=== PATIENT | female | born 1950 | race Caucasian/White ===

== ENCOUNTER 2017-07-07 18:41 | Emergency (ER) | payer OTHER ==
[~2017-07-07] VITALS: Ht 152.4 cm; Wt 95.3 kg
[2017-07-07 19:03] VITALS: BP 147/81
[2017-07-07] MEDS: MORPHINE SULFATE 4 MG/ML SYR IM ONE (21:55)
[2017-07-07 22:09] VITALS: BP 120/101
== END 2017-07-07 22:08 | disposition home or self-care (01) ==
LOC: MED 18:41
DX: M25.511 Pain in right shoulder (principal); R21 Rash and other nonspecific skin eruption; I10 Essential (primary) hypertension; Z90.49 Acquired absence of other specified parts of digestive tract
CPT/HCPCS: 96372; 99283; J2270

== ENCOUNTER 2018-03-29 00:43 | Emergency (ER) | payer OTHER, MEDICAID ==
[~2018-03-29] VITALS: Ht 152.4 cm; Wt 90.7 kg
[2018-03-29 00:49] VITALS: BP 174/76
--- NOTE | 2018-03-29 00:53 | NUR ---
TO LOBBY A/W BED, VIA W/C, LIZ NOTED
--- NOTE | 2018-03-29 01:00 | NUR ---
ASSUMED CARE OF PT AT THIS TIME. C/O COUGH AND SOB X 2 MONTHS. NO RESPIRATORY DISTRESS NOTED...PT SPEAKS IN FULL SENTENCES. PT IS AAOX4 AND RECEIVED TO BED 5 VIA W/C; PATIENT STATES PAIN OF 10/10; VSS; PATIENT POSITIONED FOR COMFORT; HOB ELEVATED; BEDRAILS UP X2; BED DOWN. ER MD MADE AWARE OF PT STATUS. WILL CONTINUE TO MONITOR.
--- NOTE | 2018-03-29 01:00 | NUR ---
PT TAKEN TO BED 5
--- NOTE | 2018-03-29 01:24 | NUR ---
X-Ray at bedside.
[2018-03-29] MEDS ORDERED: KETOROLAC 60 MG/2 ML VIAL IM ONE (02:55)
--- NOTE | 2018-03-29 03:36 | NUR ---
Dr. Saldaña evaluating patient at bedside.
[2018-03-29] MEDS ORDERED: MORPHINE SULFATE 4 MG/ML SYR IVP ONE (03:45)
[2018-03-29] MEDS ORDERED: FUROSEMIDE 20 MG/2 ML VIAL IVP ONE (03:45)
[2018-03-29] MEDS ORDERED: ALBUTEROL 0.083% 2.5 MG/3 ML NEBU INH ONE (03:50)
[2018-03-29] MEDS ORDERED: ALBUTEROL SULFATE/IPRATROPIU 3 ML SOL IH ONE (03:50)
[2018-03-29 04:55] VITALS: BP 164/71
== END 2018-03-29 04:55 | disposition home or self-care (01) ==
LOC: MED 00:43
DX: J81.1 Chronic pulmonary edema (principal); M54.5 Low back pain; I10 Essential (primary) hypertension; E07.9 Disorder of thyroid, unspecified; Z90.49 Acquired absence of other specified parts of digestive tract; Z90.710 Acquired absence of both cervix and uterus; Z96.649 Presence of unspecified artificial hip joint; Z98.890 Other specified postprocedural states
CPT/HCPCS: 71045; 93005; 94640; 96372; 96374; 96375; 99283; J1885; J1940; J2270; J7613; J7620

== ENCOUNTER 2018-06-20 14:14 | Inpatient (IN) | payer OTHER, MEDICAID ==
[~2018-06-20] VITALS: Ht 152.4 cm; Wt 90.7 kg
[2018-06-20 14:17] VITALS: BP 153/46
--- NOTE | 2018-06-20 14:17 | NUR ---
DAMIEN BY MARÍA ELENA TO BED 10
--- NOTE | 2018-06-20 14:17 | NUR ---
DR. LARSON AT BEDSIDE EVALUATING MD. Addendum: 06/20/[address] LARSON AT BEDSIDE EVALUATING PATIENT.
[2018-06-20] MEDS ORDERED: KETOROLAC 30 MG/ML VIAL IVP ONE ×2 (14:20→16:10)
--- NOTE | 2018-06-20 14:20 | NUR ---
59/F BIBA FROM HOME C/O LFA PAIN S/P FALL OF THE BED WITH INJURIED LEFT SHOULDER, DENIES HEAD INJURY, PAIN LEVEL 10. FENTANYL 100MG IM AND 100MG IV GIVEN PER PARAMEDICS, HX OF HTN, ARTHRITIS, HYPERLIPIDIMIA. DENIES N/V;PATIENT POSITIONED FOR COMFORT; HOB ELEVATED; BEDRAILS UP X2; BED DOWN. ER MADE AWARE OF PT STATUS. Addendum: 06/20/18 at 1632 [facility] Kassidy COPELAND KNEE PAIN
--- NOTE | 2018-06-20 14:30 | NUR ---
X RAY AT BEDSIDE
--- NOTE | 2018-06-20 14:53 | NUR ---
GRAND SON AT BEDSIDE.
--- NOTE | 2018-06-20 15:06 | NUR ---
Klarissa bonner in [facility] - 06/20/18 at 1508 by MED1 denies pain at this time.
--- NOTE | 2018-06-20 15:08 | NUR ---
C/O 11/26 DINORAH,Kassidy KNEE AT THIS TIME.
[2018-06-20] MEDS ORDERED: MORPHINE SULFATE 4 MG/ML SYR IVP ONE ×2 (15:10→17:25)
[2018-06-20] MEDS ORDERED: ONDANSETRON 4 MG/2 ML VIAL IVP ONE (15:10)
--- NOTE | 2018-06-20 15:20 | NUR ---
LAB AT BEDSIDE
[2018-06-20 15:35] LABS: BASOPHILS % (AUTO) 0.4 % (0.0-2.0); EOSINOPHILS # (AUTO) 0.3 K/uL (0-0.4); EOSINOPHILS % (AUTO) 3.8 % (0.0-4.0); HEMATOCRIT 29.2 % (36-48); HEMOGLOBIN 9.5 g/dL (12.0-16.0); LYMPHOCYTES % (AUTO) 13.4 % (20.5-51.1); MEAN CORPUSCULAR HEMOGLOBIN 27 pg (27-31); MEAN CORPUSCULAR HGB CONC 33 g/dL (33-37); MEAN CORPUSCULAR VOLUME 84.3 fL (80-94); MONOCYTES # (AUTO) 0.8 K/uL (0.8-1.0); MONOCYTES % (AUTO) 10.1 % (1.7-9.3); NEUTROPHILS # (AUTO) 5.6 K/uL (1.8-7.7); NEUTROPHILS % (AUTO) 72.3 % (42.2-75.2); PLATELET COUNT (AUTO) 184 K/uL (140-450); RED BLOOD CELL COUNT(AUTO) 3.47 MIL/uL (4.20-5.40); RED CELL DISTRIBUTION WIDTH 13.8 % (11.6-13.7); WHITE BLOOD COUNT (AUTO) 7.7 K/uL (4.8-10.8)
[2018-06-20 15:44] LABS: ANION GAP 14.9 (8-16); CARBON DIOXIDE 21.3 mmol/L (21-32); CREATININE 1.5 mg/dL (0.6-1.3); POTASSIUM 4.2 mmol/L (3.5-5.1)
[2018-06-20 15:50] LABS: ALBUMIN 3.1 g/dL (3.4-5.0); PROTHROMBIN TIME 10.1 secs (10.8-13.4); TOTAL BILIRUBIN 0.3 mg/dL (0.0-1.0)
--- NOTE | 2018-06-20 16:00 | NUR ---
C/O 07/27 DINORAH,L KNEE AT THIS TIME.
--- NOTE | 2018-06-20 16:18 | NUR ---
PT CAN'T PROVIDE URINE AT THIS TIME.
--- NOTE | 2018-06-20 17:02 | NUR ---
provided water & juice.
--- NOTE | 2018-06-20 19:08 | NUR ---
Pt report given to ROSEMARY VASQUEZ. Transfer of care at this time.
[2018-06-20] MEDS ORDERED: ONDANSETRON 4 MG/2 ML VIAL IM/IVP PRN (19:10)
--- NOTE | 2018-06-20 19:40 | NUR ---
PT [id number] AT UNIT VIA GURNEY, TRANSFERRED PT TO BED, TOLERATED WELL, RECEIVED BEDSIDE REPORT FROM ER NURSE, PT STABLE IV TO R WRIST 22G PATENT, INTACT, PT ON ROOM AIR, NO SOB NOTED, V/S TAKEN, BP AND HR LOW, WILL NOTIFY , INITIAL ASSESSMENT DONE, ALL SAFETY PRECAUTION MET, ORIENT PT TO ROOM, BED, CALL LIGHT, PT STATED UNDERSTANDING, MRSA SWAB TAKEN, CALL LIGHT WITHIN REACH, WILL CONTINUE TO MONITOR.
--- NOTE | 2018-06-20 19:43 | NUR ---
Admited to Med-Surg. Patient went to room 124-B via gurney by RN and EMT. Patient acting appropriatly. Belongings list completed. Report to well.
[2018-06-20 20:00] VITALS: BP 116/27
[2018-06-20] MEDS: HYDROcodone/APAP 7.5/325 MG 1 TAB PO PRN (20:13)
--- NOTE | 2018-06-20 20:13 | NUR ---
PT C/O PAIN, PAIN MEDICATION PER DR ORDER GIVEN, PT TOLERATED WELL, NO DISTRESS NOTED, CALL LIGHT WITHIN REACH, WILL CONTINUE TO MONITOR.
[2018-06-20] MEDS ORDERED: HYDROmorphone 1 MG/ML AMP IVP PRN ×2 (20:15→22:00)
[2018-06-20] MEDS ORDERED: MORPHINE SULFATE 4 MG/ML SYR IVP PRN (20:15)
[2018-06-20 20:32] LABS: CHOL/HDL RATIO 2.7 (1-4.5); FREE T4 (FREE THYROXINE) 0.92 ng/dL (0.76-1.46); MAGNESIUM 1.9 mg/dL (1.8-2.4); PHOSPHORUS 4.2 mg/dL (2.5-4.9); THYROID STIMULATING HORMONE 5.51 uIU/mL (0.34-3.74)
[2018-06-20] MEDS ORDERED: NACL 0.9% 500 ML IV ONE ×3 (21:40→22:10)
--- NOTE | 2018-06-20 21:48 | NUR ---
TALKED TO DR. PARK REGARDING PT BP LOW AND HR LOW, STATED UNDERSTANDING, ORDERED TO TX PT TO TELE. TELE MONITORING APPLIED, PT TOLERATED WELL, NO DISTRESS NOTED, WILL CONTINUE TO MONITOR.
--- NOTE | 2018-06-20 21:50 | NUR ---
TRANSFERRED PT TO ROOM 128A, PT TOLERATED WELL, ALL BELONGING WITH PT, ORIENT PT TO NEW ROOM, PT STATED UNDERSTANDING, CALL LIGHT WITHIN REACH, WILL CONTINUE TO MONITOR.
[2018-06-20] MEDS: MORPHINE SULFATE 2 MG/ML SYR IVP PRN (22:37)
--- NOTE | 2018-06-20 22:37 | NUR ---
PT BP 107/26 HR 52, NS BOLUS ADMINISTERED PER DR ORDER, PT TOLERATED WELL, PER DR. PARK OK TO GIVE PT MORPHINE FOR PAIN AT THIS TIME, ADMINISTERED MEDICATION, PT TOLERATED WELL, NO DISTRESS NOTED, WILL CONTINUE TO MONITOR.
[2018-06-20] MEDS ORDERED: MECLIZINE 25 MG TAB PO PRN (23:05)
[2018-06-21] VITALS: BP 114/33
--- NOTE | 2018-06-21 00:15 | NUR ---
CHECKED ON PT, V/S TAKEN, WNL, CALL LIGHT WITHIN REACH, WILL CONTINUE TO MONITOR.
[2018-06-21] MEDS: NACL 0.9% 1,000 ML IV SCH ×2 (00:22→11:45)
[2018-06-21] MEDS ORDERED: MEDICATION REC. PHARMACY CONS. 1 EA MISC MC PRN (03:05)
[2018-06-21 04:10] VITALS: BP 108/48
[2018-06-21] MEDS: MORPHINE SULFATE 2 MG/ML SYR IVP PRN ×3 (04:23→18:52)
--- NOTE | 2018-06-21 04:23 | NUR ---
CHECKED ON PT, V/S TAKEN, WITHIN PT BASELINE, PT STATED HAVING PAIN, MEDICATION ADMINISTERED, PT TOLERATED WELL, NO DISTRESS NOTED, CALL LIGHT WITHIN REACH, WILL CONTINUE TO MONITOR.
[2018-06-21 05:37] LABS: APPEARANCE,URINE SL CLOUDY (CLEAR); BILIRUBIN,URINE 2+ (NEGATIVE); BLOOD, URINE NEGATIVE (NEGATIVE); COLOR,URINE YELLOW (YELLOW); LEUKOCYTE ESTERASE ,URINE 1+ (NEGATIVE); NITRITE, URINE NEGATIVE (NEGATIVE); PH,URINE 5.5 (5.0-9.0); UGLUCOSE NEGATIVE (NEGATIVE)
[2018-06-21 05:45] LABS: BARBITURATE, URINE NEG. ng/ml (NEG <=200); BENZODIAZEPINE, URINE NEG. ng/mL (NEG <=200); CANNABINOID, URINE NEG. ng/mL (NEG <=50); COCAINE, URINE NEG. ng/mL (NEG <=300); OPIATE, URINE POS. ng/mL (NEG <=2000); PHENCYCLIDINE SCREEN,URINE NEG. ng/mL (NEG <=25)
[2018-06-21 05:50] LABS: RBC,URINE 0-5 /HPF (0-5); WBC,URINE 0-5 /HPF (0-5)
--- NOTE | 2018-06-21 06:30 | NUR ---
PT WENT TO CT IN STABLE CONDITION, NO DISTRESS NOTED/
--- NOTE | 2018-06-21 06:40 | NUR ---
PT BACK FROM CT IN STABLE CONDITION.
[2018-06-21] MEDS: HYDROmorphone 1 MG/ML AMP IVP PRN ×4 (07:14→23:23)
--- NOTE | 2018-06-21 07:21 | NUR ---
ENDORSED PT TO DAY SHIFT NURSE DANIELLE RN, PT STABLE, NO DISTRESS NOTED, CALL LIGHT WITHIN REACH.
--- NOTE | 2018-06-21 07:22 | NUR ---
RECEIVED BEDSIDE REPORT FROM CHRISTINA WOMACK. PATIENT ON TELE MONITOR AND STANDARD PRECAUTIONS IN PLACE. PATIENT AAOX4 AND ON ROOM AIR, NO DISTRESS NOTED. BILATERAL KNEE SWELLING, L HUMERUS FRACTURE. BRUISE ON L KNEE. FALL RISK PROTOCOL IN PLACE. IV ON R WRIST 22 G INFUSING NS AT 60, IV ASYMPTOMATIC PATENT AND INTACT. BED IN LOW POSITION, CALL LIGHT WITHIN REACH, SIDE RAILS X2 UP
[2018-06-21 07:52] LABS: ANION GAP 12.6 (8-16); CARBON DIOXIDE 22.5 mmol/L (21-32); POTASSIUM 4.1 mmol/L (3.5-5.1)
[2018-06-21 07:53] LABS: BASOPHILS % (AUTO) 0.5 % (0.0-2.0); EOSINOPHILS # (AUTO) 0.4 K/uL (0-0.4); HEMATOCRIT 27.4 % (36-48); LYMPHOCYTES # (AUTO) 1.5 K/uL (2.5-16.5); LYMPHOCYTES % (AUTO) 22.5 % (20.5-51.1); MEAN CORPUSCULAR HEMOGLOBIN 28 pg (27-31); MEAN CORPUSCULAR HGB CONC 33 g/dL (33-37); MEAN CORPUSCULAR VOLUME 85.1 fL (80-94); MONOCYTES # (AUTO) 0.6 K/uL (0.8-1.0); MONOCYTES % (AUTO) 8.3 % (1.7-9.3); NEUTROPHILS # (AUTO) 4.3 K/uL (1.8-7.7); NEUTROPHILS % (AUTO) 62.7 % (42.2-75.2); PLATELET COUNT (AUTO) 180 K/uL (140-450); RED BLOOD CELL COUNT(AUTO) 3.22 MIL/uL (4.20-5.40); RED CELL DISTRIBUTION WIDTH 13.8 % (11.6-13.7); WHITE BLOOD COUNT (AUTO) 6.8 K/uL (4.8-10.8)
[2018-06-21 08:00] VITALS: BP 123/40
--- NOTE | 2018-06-21 09:24 | NUR ---
ADMINISTERED SCHEDULED MEDS. PATIENT TOLERATED WELL
--- NOTE | 2018-06-21 09:45 | NUR ---
DR. WINN CALLED [facility], BUT IS CLOSED ON SUNDAYS. SHE ALSO CALLED PATIENT'S HOME AND LEFT MESSAGE REGARDING HOME MEDICATIONS. PATIENT DOES NOT REMEMBER LIST OF HOME MEDS. STATED GRANDSON WILL VISIT HER TODAY AT HOSPITAL AND SHE WILL LET HIM KNOW TO BRING LIST OF HOME MEDS
[2018-06-21] MEDS: HYDROcodone/APAP 7.5/325 MG 1 TAB PO PRN (11:46)
[2018-06-21 12:00] VITALS: BP 102/37
--- NOTE | 2018-06-21 12:20 | NUR ---
PATIENT SLEEPING, ON ROOM AIR, NO DISTRESS NOTED
--- NOTE | 2018-06-21 13:33 | NUR ---
ADMINISTERED MORPHINE PRN FOR 8/10 PAIN. WILL CONTINUE TO MONITOR
[2018-06-21] MEDS ORDERED: DULO60EC75 PO (15:19)
[2018-06-21] MEDS ORDERED: AMLO5TAB5 PO (15:19)
[2018-06-21] MEDS ORDERED: VITA1TAB44 PO (15:19)
[2018-06-21] MEDS ORDERED: HYDR-3320 PO (15:19)
[2018-06-21] MEDS ORDERED: TOFA11TA PO (15:19)
[2018-06-21] MEDS ORDERED: ALPR0.5T2 PO (15:19)
[2018-06-21] MEDS ORDERED: OMEP40EC14 PO (15:19)
[2018-06-21] MEDS ORDERED: SIMV20TA6 PO (15:19)
[2018-06-21] MEDS ORDERED: SUL500 PO (15:19)
[2018-06-21] MEDS ORDERED: MECL-322 PO (15:19)
[2018-06-21] MEDS ORDERED: FLUO118.1 TP (15:19)
[2018-06-21] MEDS ORDERED: ATEN25TA7 PO (15:19)
[2018-06-21] MEDS ORDERED: LEVO0.0211 PO (15:19)
[2018-06-21] MEDS ORDERED: HYDR200T5 PO (15:19)
[2018-06-21] MEDS ORDERED: TRAM50TA1 PO (15:22)
[2018-06-21] MEDS ORDERED: QUEPKT PO (15:22)
--- NOTE | 2018-06-21 15:49 | NUR ---
PATIENT COMPLAINING OF 10/10 PAIN, WILL ADMINISTER DILAUDID, NOTIFIED DR. WINN
[2018-06-21] MEDS ORDERED: HYDROmorphone 1 MG/ML AMP IVP PRN (15:50)
[2018-06-21 16:00] VITALS: BP 151/77
--- NOTE | 2018-06-21 18:41 | NUR ---
PATIENT ON ROOM AIR, NO DISTRESS NOTED, WILL CONTINUE TO MONITOR
--- NOTE | 2018-06-21 19:15 | NUR ---
BEDSIDE REPORT GIVEN TO CHRISTINA CAMPBELL. PATIENT ENDORSED IN STABLE CONDITION
--- NOTE | 2018-06-21 19:30 | NUR ---
RECEIVED BEDSIDE REPORT DAY SHIFT RN, PATIENT IN BED, AAOX4 AND ON ROOM AIR, NO DISTRESS NOTED. BILATERAL KNEE SWELLING, L HUMERUS FRACTURE. BRUISE ON L KNEE. FALL RISK PROTOCOL IN PLACE. IV ON R WRIST 22 G INFUSING NS AT 70 ML/HR. BED IN LOW POSITION, CALL LIGHT WITHIN REACH.
[2018-06-21 20:00] VITALS: BP 150/83
[2018-06-21] MEDS: sulfaSALAzine 500 MG TAB PO SCH (21:07)
--- NOTE | 2018-06-21 22:53 | NUR ---
C/O PAIN GAVE DILAUDID
[2018-06-21] MEDS ORDERED: GABAPENTIN 300 MG CAP PO ONE (23:05)
--- NOTE | 2018-06-21 23:09 | NUR ---
PATIENT STATED DILAUDID NOT WORKING. DR PARK SAID OKAY TO GIVE GABAPENTIN AND 1 MG DILAUDID AGAIN. PATIENT WILL HAVE US OF LOWER EXTREMITIES
[2018-06-22] VITALS: BP 115/70
--- NOTE | 2018-06-22 00:30 | NUR ---
SLEEPING IN BED
[2018-06-22] MEDS: NACL 0.9% 1,000 ML IV SCH ×2 (00:31→12:24)
--- NOTE | 2018-06-22 02:00 | NUR ---
EXPLAINED TO PATIENT NEED FOR OCCULT BLOOD. PATIENT VERBALIZED UNDERSTANDING.
[2018-06-22] MEDS: MORPHINE SULFATE 2 MG/ML SYR IVP PRN (04:12)
--- NOTE | 2018-06-22 04:12 | NUR ---
PATIENT REFUSED BP CHECK STATED IT HURT TOO MUCH TO CHECK. ASKED FOR PAIN MEDICATIONS. NOTIFIED DR PARK, AND OKAY TO GIVE PAIN MED. GAVE MORPHINE.
[2018-06-22] MEDS: LEVOTHYROXINE 0.025 MG TAB PO SCH (05:26)
[2018-06-22 07:17] LABS: BASOPHILS % (AUTO) 0.3 % (0.0-2.0); EOSINOPHILS # (AUTO) 0.2 K/uL (0-0.4); EOSINOPHILS % (AUTO) 2.4 % (0.0-4.0); HEMATOCRIT 25.9 % (36-48); HEMOGLOBIN 8.5 g/dL (12.0-16.0); LYMPHOCYTES # (AUTO) 0.7 K/uL (2.5-16.5); LYMPHOCYTES % (AUTO) 7.6 % (20.5-51.1); MEAN CORPUSCULAR HEMOGLOBIN 28 pg (27-31); MEAN CORPUSCULAR HGB CONC 33 g/dL (33-37); MONOCYTES # (AUTO) 0.8 K/uL (0.8-1.0); MONOCYTES % (AUTO) 9.9 % (1.7-9.3); NEUTROPHILS # (AUTO) 6.8 K/uL (1.8-7.7); NEUTROPHILS % (AUTO) 79.8 % (42.2-75.2); PLATELET COUNT (AUTO) 162 K/uL (140-450); RED BLOOD CELL COUNT(AUTO) 3.05 MIL/uL (4.20-5.40); RED CELL DISTRIBUTION WIDTH 13.7 % (11.6-13.7); WHITE BLOOD COUNT (AUTO) 8.6 K/uL (4.8-10.8)
--- NOTE | 2018-06-22 07:19 | NUR ---
RECEIVED BEDSIDE REPORT FROM SAND TESTER R., PATIENT IN BED, AAOX4 AND ON ROOM AIR, NO DISTRESS NOTED. BILATERAL KNEE SWELLING, L HUMERUS FRACTURE. BRUISE ON L KNEE. FALL RISK PROTOCOL IN PLACE. IV ON R WRIST 22 G INFUSING NS AT 70 ML/HR. BED IN LOW POSITION, CALL LIGHT WITHIN REACH. WILL ROUND FREQUENTLY ON PT.
--- NOTE | 2018-06-22 07:28 | NUR ---
ENDORSED PATIENT TO DAY SHIFT NURSE, PATIENT STABLE.
[2018-06-22 07:47] LABS: ANION GAP 14.6 (8-16); CARBON DIOXIDE 19.9 mmol/L (21-32); CREATININE 1.4 mg/dL (0.6-1.3); MAGNESIUM 1.9 mg/dL (1.8-2.4); PHOSPHORUS 3.9 mg/dL (2.5-4.9); POTASSIUM 4.5 mmol/L (3.5-5.1)
[2018-06-22 08:00] VITALS: BP 138/44
[2018-06-22 08:15] LABS: T4 (THYROXINE) 5.1 ug/dL (4.5-12.0)
--- NOTE | 2018-06-22 08:42 | NUR ---
PATIENT HAS BEEN SCREENED AND CATEGORIZED MODERATE NUTRITION RISK. PATIENT WILL BE SEEN WITHIN 3-5 DAYS OF ADMISSION. 06/23/18QUINTON NUNEZ RD
[2018-06-22] MEDS: amLODIPine 5 MG TAB PO SCH (09:00)
[2018-06-22] MEDS: ATENOLOL 25 MG TAB PO SCH (09:00)
--- NOTE | 2018-06-22 09:30 | NUR ---
P.T. NOTES UNABLE TO SEE PATIENT FOR P.Marsha CAMILO DUE TO HER REFUSAL TO PARTICIPATE IN SPITE OF SEVERAL ENCOURAGEMENTS WERE GIVEN. HER NURSE AARON WAS MADE AWARE OF HER REFUSAL. PLAN: WE'LL FOLLOW UP AGAIN TOMORROW.
[2018-06-22] MEDS: sulfaSALAzine 500 MG TAB PO SCH ×2 (09:56→20:18)
[2018-06-22] MEDS: FERROUS SULFATE 325 MG TABEC PO SCH (09:56)
[2018-06-22] MEDS: DULoxetine 30 MG CAPDR PO SCH (09:56)
[2018-06-22] MEDS: HYDROXYCHLOROQUINE 200 MG TAB PO SCH (09:56)
[2018-06-22] MEDS: HYDROcodone/APAP 7.5/325 MG 1 TAB PO PRN ×3 (09:57→21:48)
[2018-06-22] MEDS: VIT-B COMP/VIT-C/FOLIC ACID 1 TAB PO SCH (09:57)
[2018-06-22] MEDS: ASCORBIC ACID 500 MG TAB PO SCH (09:57)
[2018-06-22] MEDS: CHOLESTYRAMINE 4 GM/9 GM PKT PO SCH (09:58)
[2018-06-22] MEDS: ALPRAZolam 0.5 MG TAB PO SCH (09:58)
[2018-06-22] MEDS: PANTOPRAZOLE 40 MG INJ VIAL IV SCH (09:58)
--- NOTE | 2018-06-22 09:59 | NUR ---
ADMINISTERED MORNING MEDS TO PT. PT TOLERATED THEM WELL. PER MD, NORVASC AND TENORMIN WERE HELD DUE TO DECREASED DBP. NORCO WAS GIVEN WITH MD KNOWLEDGE FOR COMPLAINT OF ARM AND LEG PAIN. WILL CONTINUE TO ROUND FREQUENTLY ON PT. BED IN LOW POSITION, CALL LIGHT WITHIN REACH.
--- NOTE | 2018-06-22 11:13 | NUR ---
PT SLEEPING IN BED. NO SIGNS OF DISTRESS OR PAIN NOTED. WILL CONTINUE TO MONITOR PT CLOSELY.
[2018-06-22 12:00] VITALS: BP 136/42
--- NOTE | 2018-06-22 13:11 | NUR ---
NOTICED PT MEDICATIONS AT BEDSIDE. PT SLEEPING BUT i WILL ASK HER IF SOMEONE CAN COME GET HER MEDS OTHERWISE THEY WILL BE TAKEN TO PHARMACY FOR SAFE KEEPING.
--- NOTE | 2018-06-22 15:04 | NUR ---
MI REQUESTING PAIN MEDICATION AT THIS TIME. WILL MEDICATE PT. ALL OTHER NEEDS CURRENTLY MET. NO SIGNS OF DISTRESS FROM PT. BED IN LOW POSITION, CALL LIGHT WITHIN REACH.
[2018-06-22 16:00] VITALS: BP 140/42
--- NOTE | 2018-06-22 17:18 | NUR ---
PT SLEEPING IN BED. NO SIGNS OF PAIN OR DISTRESS NOTED. BED IN LOW POSITION, CALL LIGHT WITHIN REACH. WILL CONTINUE TO ROUND FREQUENTLY.
--- NOTE | 2018-06-22 19:29 | NUR ---
ENDORSED PT TO NIGHTSHIFT RN. PT IN STABLE CONDITION AT THIS TIME.
--- NOTE | 2018-06-22 19:30 | NUR ---
RECEIVED REPORT FROM DAY SHIFT NURSE AARON-CHRISTINA AT BEDSIDE. PT RESTING, ON-AND-OFF SLEEPING IN BED. AOX4, ON ROOM AIR WITH RIGHT WRIST #22G. LEFT ARM IN BANDAGE S/P FALL AT HOME ON 06/20 WITH LEFT HUMERAL FRACTURE. DISCUSSED PLAN OF CARE AND PT VERBALIZED UNDERSTANDING. NO S/S OF RESPIRATORY DISTRESS OR DISCOMFORT NOTED AT THIS TIME. BED IN LOWEST POSITION, BED BREAKS ON, BOTH SIDE RAILS UP AND FALL PRECAUTIONS IN PLACE. HEAD OF BED ELEVATED TO 30 DEGREES. BEDSIDE TABLE AND CALL LIGHT ARE WITHIN REACH. WILL CONTINUE TO MONITOR.
[2018-06-22 20:00] VITALS: BP 135/49
--- NOTE | 2018-06-22 20:00 | NUR ---
VITAL SIGNS TAKEN AND TOLERATED WELL. NO S/S OF RESPIRATORY DISTRESS OR DISCOMFORT NOTED AT THIS TIME. WILL CONTINUE TO MONITOR.
--- NOTE | 2018-06-22 20:18 | NUR ---
SCHEDULED MEDICATION AZULFIDINE AND HEPARIN SUBQ GIVEN AND TOLERATED WELL. NO S/S OF RESPIRATORY DISTRESS OR DISCOMFORT NOTED AT THIS TIME. WILL CONTINUE TO MONITOR.
--- NOTE | 2018-06-22 21:24 | NUR ---
PERINEAL CARE CURRENTLY BEING PROVIDED BY ASUNCION VASQUEZ AND ASUNCION LIEBERMAN. URINE SOILD LINENS BEING CHANGED. PT TOLERATING WELL. NO S/S OF RESPIRATORY DISTRESS OR DISCOMFORT NOTED AT THIS TIME. WILL CONTINUE TO MONITOR.
--- NOTE | 2018-06-22 21:48 | NUR ---
PT C/O LEG PAIN REQUESTING TO BANDAGE HER LEGS SHE DOES AT HOME. SPOKE WITH DR. LUCERO AND AFTER SPEAKING TO PT SHE ORDERED ULTRASOUND OF HER LEGS AND TO GIVE NORCO FOR PAIN. NORCO WAS GIVEN AND TOLERATED WELL. NO S/S OF RESPIRATORY DISTRESS OR DISCOMFORT NOTED AT THIS TIME. WILL CONTINUE TO MONITOR.
[2018-06-23] VITALS: BP 143/46
--- NOTE | 2018-06-23 | NUR ---
VITAL SIGNS TAKEN AND TOLERATED WELL. PT C/O PAIN 09/26- WILL MEDICATE. WILL CONTINUE TO MONITOR.
[2018-06-23] MEDS: MORPHINE SULFATE 2 MG/ML SYR IVP PRN (00:19)
--- NOTE | 2018-06-23 00:19 | NUR ---
MEDICATED WITH MORPHINE FOR PAIN. PT TOLERATED WELL. NO S/S OF RESPIRATORY DISTRESS OR DISCOMFORT NOTED AT THIS TIME. WILL CONTINUE TO MONITOR.
--- NOTE | 2018-06-23 02:00 | NUR ---
PT SLEEPING IN BED. NO S/S OF RESPIRATORY DISTRESS OR DISCOMFORT NOTED AT THIS TIME. WILL CONTINUE TO MONITOR.
[2018-06-23 04:00] VITALS: BP 144/37
--- NOTE | 2018-06-23 04:00 | NUR ---
VITAL SIGNS TAKEN AND TOLERATED WELL. NO S/S OF RESPIRATORY DISTRESS OR DISCOMFORT NOTED AT THIS TIME. WILL CONTINUE TO MONITOR.
--- NOTE | 2018-06-23 06:00 | NUR ---
PT RESTING IN BED. NO S/S OF RESPIRATORY DISTRESS OR DISCOMFORT NOTED AT THIS TIME. WILL CONTINUE TO MONITOR.
[2018-06-23 06:14] LABS: FOLIC ACID > 20.00 ng/mL (>3.0)
[2018-06-23] MEDS: LEVOTHYROXINE 0.025 MG TAB PO SCH (06:17)
--- NOTE | 2018-06-23 06:17 | NUR ---
SCHEDULED MEDICATION SYNTHROID GIVEN AND TOLERATED WELL. NO S/S OF RESPIRATORY DISTRESS OR DISCOMFORT NOTED AT THIS TIME. WILL CONTINUE TO MONITOR.
[2018-06-23 06:53] LABS: BASOPHILS % (AUTO) 0.4 % (0.0-2.0); EOSINOPHILS # (AUTO) 0.5 K/uL (0-0.4); EOSINOPHILS % (AUTO) 7.5 % (0.0-4.0); HEMATOCRIT 22.9 % (36-48); HEMOGLOBIN 7.5 g/dL (12.0-16.0); LYMPHOCYTES # (AUTO) 0.8 K/uL (2.5-16.5); LYMPHOCYTES % (AUTO) 12.2 % (20.5-51.1); MEAN CORPUSCULAR HEMOGLOBIN 28 pg (27-31); MEAN CORPUSCULAR HGB CONC 33 g/dL (33-37); MEAN CORPUSCULAR VOLUME 84.6 fL (80-94); MONOCYTES # (AUTO) 0.7 K/uL (0.8-1.0); MONOCYTES % (AUTO) 10.5 % (1.7-9.3); NEUTROPHILS # (AUTO) 4.6 K/uL (1.8-7.7); NEUTROPHILS % (AUTO) 69.4 % (42.2-75.2); PLATELET COUNT (AUTO) 164 K/uL (140-450); RED BLOOD CELL COUNT(AUTO) 2.71 MIL/uL (4.20-5.40); RED CELL DISTRIBUTION WIDTH 14.2 % (11.6-13.7); WHITE BLOOD COUNT (AUTO) 6.7 K/uL (4.8-10.8)
--- NOTE | 2018-06-23 07:19 | NUR ---
ENDORSED PT CARE TO DAY SHIFT NURSE STEPHANIE AT BEDSIDE FOR CONTINUITY OF CARE.
--- NOTE | 2018-06-23 07:40 | NUR ---
PATIENT WAS SLEEPING COMFORTABLY, EASILY AROUSABLE BY NAME. RESPIRATION EVEN, UNLABOR ON ROOM AIR. SKIN DRY AND WARM. IV PATENT AND INTACT. COMPLAINED OF LEG PAIN 6/10, WILL MEDICATE PER ORDER. PLAN OF CARE WAS DISCUSSED WITH PATIENT. BED AT LOW POSITION, SIDE RAILS UP. CALL LIGHT WITHIN REACH.
[2018-06-23 07:41] LABS: MAGNESIUM 1.7 mg/dL (1.8-2.4); PHOSPHORUS 2.8 mg/dL (2.5-4.9)
[2018-06-23 07:46] LABS: ANION GAP 11.1 (8-16); CARBON DIOXIDE 20.1 mmol/L (21-32); POTASSIUM 4.2 mmol/L (3.5-5.1)
[2018-06-23 07:47] LABS: CREATININE 1.2 mg/dL (0.6-1.3)
[2018-06-23 08:00] VITALS: BP 127/44
[2018-06-23] MEDS: DULoxetine 30 MG CAPDR PO SCH (08:38)
[2018-06-23] MEDS: ALPRAZolam 0.5 MG TAB PO SCH (08:38)
[2018-06-23] MEDS: HYDROXYCHLOROQUINE 200 MG TAB PO SCH (08:38)
[2018-06-23] MEDS: HYDROcodone/APAP 7.5/325 MG 1 TAB PO PRN ×3 (08:39→20:48)
[2018-06-23] MEDS: GABAPENTIN 300 MG CAP PO SCH ×2 (08:39→20:47)
[2018-06-23] MEDS: VIT-B COMP/VIT-C/FOLIC ACID 1 TAB PO SCH (08:39)
[2018-06-23] MEDS: ASCORBIC ACID 500 MG TAB PO SCH (08:39)
[2018-06-23] MEDS: amLODIPine 5 MG TAB PO SCH ×2 (08:40→08:45)
[2018-06-23] MEDS: FERROUS SULFATE 325 MG TABEC PO SCH (08:40)
[2018-06-23] MEDS: ATENOLOL 25 MG TAB PO SCH ×2 (08:40→08:45)
[2018-06-23] MEDS: PANTOPRAZOLE 40 MG INJ VIAL IV SCH (08:41)
[2018-06-23] MEDS: sulfaSALAzine 500 MG TAB PO SCH ×2 (08:41→20:48)
[2018-06-23] MEDS: CHOLESTYRAMINE 4 GM/9 GM PKT PO SCH (08:42)
[2018-06-23] MEDS: NACL 0.9% 1,000 ML IV SCH (09:40)
--- NOTE | 2018-06-23 10:00 | NUR ---
PATIENT WAS REPOSITIONED, PERINEAL CARE WAS GIVEN. PT WAS AT BEDSIDE. NO DISTRESS NOTED. CALL LIGHT WITHIN REACH
[2018-06-23] MEDS ORDERED: MAG SULF 2000 MG/WATER PREMIX 50 ML IV SCH (11:00)
[2018-06-23] MEDS: DOCUSATE SODIUM 100 MG GELCAP PO PRN (11:14)
[2018-06-23] MEDS: ACETAMINOPHEN 325 MG TAB PO SCH ×3 (11:15→19:35)
[2018-06-23] MEDS: FUROSEMIDE 20 MG TAB PO SCH ×2 (11:16→16:36)
--- NOTE | 2018-06-23 11:40 | NUR ---
BLOOD TRANSFUSION CONSENT WAS OBTAINED, SIGNED PER PATIENT. PATIENT VERBALIZED UNDERSTANDING OF THE RISKS. NEW IV 22G WAS INSERTED ON RIGHT AC. PATIENT TOLERATED WELL
--- NOTE | 2018-06-23 12:00 | NUR ---
PATIENT WAS SLEEPING COMFORTABLY. RESPIRATION EVEN, UNLABOR ON ROOM AIR. NO DISTRESS NOTED AT THIS TIME
--- NOTE | 2018-06-23 14:05 | NUR ---
BLOOD TRANSFUSION WAS STARTED, PATIENT IS STABLE AT THIS TIME
--- NOTE | 2018-06-23 15:00 | NUR ---
PATIENT WAS AWAKE, ALERT. DENIED PAIN, SOB. VS IS STABLE. NO DISTRESS NOTED
[2018-06-23 16:00] VITALS: BP 137/48
--- NOTE | 2018-06-23 17:18 | NUR ---
BLOOD TRANSFUSION WAS FINISHED. VS WAS STABLE. NO SIGN OF ADVERSE REACTION SEEN. PATIENT IS STABLE AT THIS TIME
--- NOTE | 2018-06-23 18:11 | NUR ---
PATIENT WAS AWAKE, ALERT, EATING DINNER COMFORTABLY. RESPIRATION EVEN, UNLABOR ON ROOM AIR. FAMILY AT BEDSIDE. NO DISTRESS NOTED AT THIS TIME
--- NOTE | 2018-06-23 19:23 | NUR ---
ENDORSEMENT GIVEN TO RN ENDOSCOPY NURSE. PATIENT IS STABLE AT THIS TIME.
--- NOTE | 2018-06-23 19:25 | NUR ---
RECEIVED BEDSIDE REPORT FROM AKBAR VASQUEZ. PT IS AAO X4. ON ROOM AIR RESPIRATIONS ARE EQUAL AND UNLABORED. PATIENT DX LEFT HUMERUS FX. ARM IS MARINA WRAPPED. CAP REFILL < 3SEC. PT TO BE NPO AFTER MIDNIGHT. PT SURGERY TOMORROW. PER NURSE NO ORDER FOR CONSENT SURGERY WAS NOT SPECIFIC. PT RECEIVED ONE UNIT OF BLOOD TODAY. SKIN INTACT. OCCULT BLOOD PENDING NO BM TODAY. IV ON R HAND 22G AND RAC 22G IVF PER ORDERS. PLAN OF CARE DISCUSSED. WILL CONTINUE TO MONITOR.
--- NOTE | 2018-06-23 20:48 | NUR ---
SCHEDULED MEDICATIONS GIVEN. PATIENT TOLERATED WELL. NORCO GIVEN FOR 6/10 PAIN. SAFETY MEASURES ARE IN PLACE. CALL LIGHT WITHIN REACH. WILL CONTINUE TO MONITOR.
--- NOTE | 2018-06-23 23:00 | NUR ---
PATIENT CLEANED AND REPOSITION FOR COMFORT. PT SITTING IN BED EATING SALAD. VERBALIZED UNDERSTANDING OF NPO AFTER MIDNIGHT. SAFETY MEASURES ARE IN PLACE. CALL LIGHT WITHIN REACH. WILL CONTINUE TO MONITOR.
[2018-06-24] VITALS: BP 152/52
--- NOTE | 2018-06-24 00:15 | NUR ---
PATIENT IS SLEEPING COMFORTABLY IN BED. RESPIRATIONS ARE EQUAL AND UNLABORED. SAFETY MEASURES ARE IN PLACE. CALL LIGHT WITHIN REACH.
--- NOTE | 2018-06-24 02:16 | NUR ---
PATIENT SLEEPING IN BED. NO S/S OF DISTRESS. RESPIRATION EQUAL AND UNLABORED. CALL LIGHT WITHIN REACH.
[2018-06-24] MEDS: NACL 0.9% 1,000 ML IV SCH ×3 (05:43→19:44)
--- NOTE | 2018-06-24 06:00 | NUR ---
PATIENT CLEANED AND REPOSITION FOR COMFORT. ASSISTED WITH ORAL CARE. AND CLEANS HER DENTURES. PREO OP CHECKLIST COMPLETED. PT WITHOUT ANY JEWELRY. CONSENT SIGNED AND IN CHART.
[2018-06-24] MEDS: LEVOTHYROXINE 0.025 MG TAB PO SCH (06:07)
[2018-06-24 06:57] LABS: HEMATOCRIT 27.3 % (36-48); HEMOGLOBIN 8.9 g/dL (12.0-16.0); MEAN CORPUSCULAR HEMOGLOBIN 28 pg (27-31); MEAN CORPUSCULAR HGB CONC 33 g/dL (33-37); MEAN CORPUSCULAR VOLUME 86.4 fL (80-94); PLATELET COUNT (AUTO) 188 K/uL (140-450); RED BLOOD CELL COUNT(AUTO) 3.16 MIL/uL (4.20-5.40); RED CELL DISTRIBUTION WIDTH 14.3 % (11.6-13.7); WHITE BLOOD COUNT (AUTO) 5.8 K/uL (4.8-10.8)
[2018-06-24] MEDS ORDERED: PROPOFOL 200 MG/20 ML VIAL IV ONE (07:29)
[2018-06-24] MEDS ORDERED: LIDOCAINE 2% 100 MG/5 ML SYR IVP ONE (07:29)
[2018-06-24] MEDS ORDERED: SEVOFLURANE 250 ML BTL INH ONE (07:29)
--- NOTE | 2018-06-24 07:33 | NUR ---
GAVE BEDSIDE REPORT TO CRYSTAL VASQUEZ. PATIENT ENDORSED IN STABLE CONDITION.
--- NOTE | 2018-06-24 07:35 | NUR ---
RECEIVED ENDORSEMENT FROM MANAGER STRATEGIC SOURCING NURSEROBERT ABOUT THE PT, PT IS IN OR ALREADY PER CHRISTINA JONES FOR A ORIF SURGERY, PT WAS NOT SEEN AND ASSESS, INFORMATION AND HISTORY OF PT WAS JUST RELAYED BY MANAGER STRATEGIC SOURCING NURSEROBERT. WILL ASSESS AND MONITOR PT WHEN BACK TO ROOM.
--- NOTE | 2018-06-24 07:36 | NUR ---
PER RESEARCH PROJECT MANAGER NURSE, DOROTHY JONES WAS TAKEN OUT OF THE ROOM FOR SURGERY AT AROUND 0725H.
[2018-06-24 07:42] LABS: ANION GAP 11.7 (8-16); CARBON DIOXIDE 21.6 mmol/L (21-32); CREATININE 1.2 mg/dL (0.6-1.3); POTASSIUM 4.3 mmol/L (3.5-5.1)
[2018-06-24] MEDS ORDERED: MIDAZOLAM 2 MG/2 ML VIAL ONE (07:43)
[2018-06-24] MEDS ORDERED: fentaNYL 0.05 MG/ML VIAL ONE (07:44)
[2018-06-24 07:49] LABS: EOSINOPHILS % (MANUAL) 9 % (0-4); LYMPHOCYTES % (MANUAL) 10 % (20-46); MONOCYTES % (MANUAL) 5 % (5-12)
[2018-06-24] MEDS: FERROUS SULFATE 325 MG TABEC PO SCH (08:00)
[2018-06-24 08:35] LABS: PROTHROMBIN TIME 8.8 secs (10.8-13.4)
[2018-06-24] MEDS ORDERED: HYDROmorphone 1 MG/ML AMP IVP PRN (08:35)
[2018-06-24] MEDS ORDERED: ONDANSETRON 4 MG/2 ML VIAL IVP PRN (08:35)
[2018-06-24] MEDS: BACITRACIN 50000 UNITS/1 VIAL ONE ×2 (08:40→10:30)
[2018-06-24] MEDS: ALPRAZolam 0.5 MG TAB PO SCH (09:00)
[2018-06-24] MEDS: DULoxetine 30 MG CAPDR PO SCH (09:00)
[2018-06-24] MEDS: sulfaSALAzine 500 MG TAB PO SCH ×2 (09:00→20:42)
[2018-06-24] MEDS: ATENOLOL 25 MG TAB PO SCH (09:00)
[2018-06-24] MEDS: VIT-B COMP/VIT-C/FOLIC ACID 1 TAB PO SCH (09:00)
[2018-06-24] MEDS: HYDROXYCHLOROQUINE 200 MG TAB PO SCH (09:00)
[2018-06-24] MEDS: GABAPENTIN 300 MG CAP PO SCH ×2 (09:00→20:42)
[2018-06-24] MEDS: ASCORBIC ACID 500 MG TAB PO SCH (09:00)
[2018-06-24] MEDS: CHOLESTYRAMINE 4 GM/9 GM PKT PO SCH (09:00)
[2018-06-24] MEDS: amLODIPine 5 MG TAB PO SCH (09:00)
[2018-06-24] MEDS: PANTOPRAZOLE 40 MG INJ VIAL IV SCH (09:00)
[2018-06-24] MEDS ORDERED: HYDROmorphone PFS 2 MG/ML SYR ONE (09:56)
[2018-06-24] MEDS: BUPIVACAINE-MPF 0.25% 30 ML VIAL INJ ONE ×2 (10:30→10:59)
[2018-06-24 12:00] VITALS: BP 155/56
--- NOTE | 2018-06-24 12:03 | NUR ---
PT WAS BACK TO ROOM FROM OR FROM ORIF SURGERY OF THE LEFT HUMERUS, VITAL SIGNS TAKEN AND BP IS 155/56, PULSE IS 88, TEMPERATURE IS 98.4, O2 SATURATION IS 97% AND RESPIRATION IS 18/MIN, PT IS AWAKE AND MADE COMFORTABLE ON THE BED, NO SIGN OF DISTRESS NOTED. WILL MONITOR PT.
--- NOTE | 2018-06-24 14:20 | NUR ---
PT IS AWAKE AND IV MEDICATION WAS GIVEN VIA IVPB AND PT TOLERATED IT. WILL MONITOR PT.
[2018-06-24] MEDS: HYDROmorphone 1 MG/ML AMP IVP PRN ×2 (14:53→19:44)
--- NOTE | 2018-06-24 14:53 | NUR ---
PT VERBALIZED A PAIN RATE OF 9/10, AND PAIN MEDICATION WAS GIVEN, BP WAS CHECKED AND RESULT IS 148/51, PULSE IS 84, O2 SATURATION IS 86%, PT TOLERATED THE MEDICATION. WILL RE-ASSESS PAIN AND MONITOR PT.
--- NOTE | 2018-06-24 15:03 | NUR ---
CALLED CARMINE [phone] Bills Khakis AND NOTIFIED HER PATIENT HAS A D/C ORDER TO [facility]APY . PER CARMINE TO TRY [facility] [place] , I FAXED ALL THE INFO TO [facility] [phone] AND SPOKE WITH DANITZA LEWIS AND AFTER SHE REVIEW SHE WILL CALL BACK.
[2018-06-24 16:00] VITALS: BP 156/53
--- NOTE | 2018-06-24 16:05 | NUR ---
CALLED CARMINE [facility] LEFT A MESSAGE THAT WE NEEDED A LIST OF SNF THAT CONTRACTED WITH [facility] AND PROVIDED OUR FAX NUMBER [phone].
--- NOTE | 2018-06-24 16:12 | NUR ---
CALLED [facility] [phone] SPOKE WITH ERIC ,PROVIDE PT INFO AND IF THEY ARE CONTRACTED PT'S INSURANCE [facility]. PER ELLIOT WILL CHECK AND WILL CALL BACK.
[2018-06-24 17:53] LABS: BASOPHILS % (AUTO) 0.2 % (0.0-2.0); EOSINOPHILS # (AUTO) 0.3 K/uL (0-0.4); EOSINOPHILS % (AUTO) 3.5 % (0.0-4.0); HEMATOCRIT 27.9 % (36-48); HEMOGLOBIN 8.9 g/dL (12.0-16.0); LYMPHOCYTES # (AUTO) 0.5 K/uL (2.5-16.5); MEAN CORPUSCULAR HEMOGLOBIN 28 pg (27-31); MEAN CORPUSCULAR HGB CONC 32 g/dL (33-37); MEAN CORPUSCULAR VOLUME 86.9 fL (80-94); MONOCYTES # (AUTO) 0.8 K/uL (0.8-1.0); MONOCYTES % (AUTO) 10.8 % (1.7-9.3); NEUTROPHILS # (AUTO) 5.9 K/uL (1.8-7.7); NEUTROPHILS % (AUTO) 78.5 % (42.2-75.2); PLATELET COUNT (AUTO) 205 K/uL (140-450); RED BLOOD CELL COUNT(AUTO) 3.21 MIL/uL (4.20-5.40); RED CELL DISTRIBUTION WIDTH 14.9 % (11.6-13.7); WHITE BLOOD COUNT (AUTO) 7.5 K/uL (4.8-10.8)
--- NOTE | 2018-06-24 19:35 | NUR ---
ENDORSED PT TO COOKER LOADER NURSEDIANNE FOR CONTINUITY OF CARE. PT IS STABLE AT THIS TIME.
--- NOTE | 2018-06-24 19:36 | NUR ---
RECEIVED BEDSIDE REPORT FROM JOCELYN VASQUEZ. PT IS AAO X4. ON ROOM AIR RESPIRATIONS ARE EQUAL AND UNLABORED. PATIENT DX LEFT HUMERUS FX.S/P LEFT ORIF WITH DR RESENDIZ TODAY. ARM IN SOFT CAST. CAP REFILL < 3SEC. ARM SWOLLEN BUT WARM. OCCULT BLOOD PENDING NO BM TODAY. IV ON R HAND 22G AND RAC 22G IVF PER ORDERS. PLAN OF CARE DISCUSSED. SAFETY MEASURES ARE IN PLACE. WILL CONTINUE TO MONITOR.
--- NOTE | 2018-06-24 19:44 | NUR ---
PATIENT STATES PAIN 10/10 WILL ADMINISTER DILAUDID IVP. PATIENT TOLERATED WELL. WILL CONTINUE TO MONITOR.
--- NOTE | 2018-06-24 20:42 | NUR ---
SCHEDULED MEDICATIONS ADMINISTERED. PATIENT TOLERATED WELL. PATIENT WAS CLEANED AND REPOSITION FOR COMFORT ON R SIDE. ALL NEEDS MET AT THIS TIME. WILL CONTINUE TO MONITOR.
[2018-06-24] MEDS ORDERED: ceFAZolin 1,000 MG VIAL ONE (20:47)
[2018-06-24] MEDS: MORPHINE SULFATE 2 MG/ML SYR IVP PRN (23:45)
--- NOTE | 2018-06-24 23:45 | NUR ---
PATIENT VITAL SIGNS ARE WITHIN NORMAL LIMITS. PT STATES PAIN IS 10/10 MORPHINE GIVEN PER ORDERS. WILL CONTINUE TO MONITOR. CALL LIGHT IS WITHIN REACH.
[2018-06-24 23:49] VITALS: BP 141/49
--- NOTE | 2018-06-25 02:19 | NUR ---
PATIENT IS SLEEPING COMFORTABLY IN BED. NO S/S OF DISTRESS NOTED. WILL CONTINUE TO MONITOR.
[2018-06-25] MEDS: MORPHINE SULFATE 2 MG/ML SYR IVP PRN ×2 (03:16→06:40)
--- NOTE | 2018-06-25 04:03 | NUR ---
PATIENT SLEEPING COMFORTABLY IN BED. NO S/S OF DISTRESS. CALL LIGHT IS WITHIN REACH. WILL CONTINUE TO MONITOR.
[2018-06-25] MEDS ORDERED: ceFAZolin 1,000 MG VIAL ONE (05:39)
[2018-06-25] MEDS: DOCUSATE SODIUM 100 MG GELCAP PO PRN (05:40)
[2018-06-25] MEDS: LEVOTHYROXINE 0.025 MG TAB PO SCH (05:40)
--- NOTE | 2018-06-25 05:40 | NUR ---
SCHEDULED MEDICATIONS GIVEN. PRN COLACE GIVEN LAST BM X4 DAYS AGO. PT TOLERATED WELL. WILL CONTINUE TO MONITOR.
[2018-06-25 06:53] LABS: BASOPHILS % (AUTO) 0.2 % (0.0-2.0); EOSINOPHILS # (AUTO) 0.3 K/uL (0-0.4); EOSINOPHILS % (AUTO) 4.2 % (0.0-4.0); HEMATOCRIT 23.5 % (36-48); HEMOGLOBIN 7.8 g/dL (12.0-16.0); LYMPHOCYTES # (AUTO) 0.7 K/uL (2.5-16.5); LYMPHOCYTES % (AUTO) 9.8 % (20.5-51.1); MEAN CORPUSCULAR HEMOGLOBIN 29 pg (27-31); MEAN CORPUSCULAR HGB CONC 33 g/dL (33-37); MEAN CORPUSCULAR VOLUME 85.8 fL (80-94); MONOCYTES % (AUTO) 13.3 % (1.7-9.3); NEUTROPHILS # (AUTO) 5.3 K/uL (1.8-7.7); NEUTROPHILS % (AUTO) 72.5 % (42.2-75.2); PLATELET COUNT (AUTO) 219 K/uL (140-450); RED BLOOD CELL COUNT(AUTO) 2.74 MIL/uL (4.20-5.40); RED CELL DISTRIBUTION WIDTH 14.3 % (11.6-13.7); WHITE BLOOD COUNT (AUTO) 7.3 K/uL (4.8-10.8)
--- NOTE | 2018-06-25 07:19 | NUR ---
GAVE BEDSIDE REPORT TO ADRIEL VASQUEZ. PATIENT ENDORSED IN STABLE CONDITION.
[2018-06-25 07:55] LABS: MAGNESIUM 1.7 mg/dL (1.8-2.4); PHOSPHORUS 2.7 mg/dL (2.5-4.9)
[2018-06-25 08:00] VITALS: BP 140/45
[2018-06-25] MEDS: GABAPENTIN 300 MG CAP PO SCH ×2 (08:31→20:53)
[2018-06-25] MEDS: amLODIPine 5 MG TAB PO SCH (08:32)
[2018-06-25] MEDS: ALPRAZolam 0.5 MG TAB PO SCH (08:32)
[2018-06-25] MEDS: DULoxetine 30 MG CAPDR PO SCH (08:32)
[2018-06-25] MEDS: ASCORBIC ACID 500 MG TAB PO SCH (08:32)
[2018-06-25] MEDS: FERROUS SULFATE 325 MG TABEC PO SCH (08:32)
[2018-06-25] MEDS: HYDROcodone/APAP 7.5/325 MG 1 TAB PO PRN (08:33)
[2018-06-25] MEDS: ATENOLOL 25 MG TAB PO SCH (08:33)
[2018-06-25] MEDS: PANTOPRAZOLE 40 MG INJ VIAL IV SCH (08:33)
[2018-06-25] MEDS: HYDROXYCHLOROQUINE 200 MG TAB PO SCH (08:33)
[2018-06-25] MEDS: VIT-B COMP/VIT-C/FOLIC ACID 1 TAB PO SCH (08:33)
[2018-06-25] MEDS: CHOLESTYRAMINE 4 GM/9 GM PKT PO SCH (08:34)
[2018-06-25] MEDS: sulfaSALAzine 500 MG TAB PO SCH ×2 (08:36→20:53)
[2018-06-25 09:02] LABS: ANION GAP 13.7 (8-16); CREATININE 1.2 mg/dL (0.6-1.3); POTASSIUM 4.7 mmol/L (3.5-5.1)
--- NOTE | 2018-06-25 09:08 | NUR ---
CARMINE FROM [facility] CALLED THAT [facility] IS THE CONTRACTED FACILITY AND PATIENT IS ACCEPTED THERE . PT CAN GO TO ROOM 39B , TRANSPORT WITH [facility] AUTH # [id number]. CARMINE WILL MAKE FOLLOW UP VISIT APPOINTMENT WITH DR RESENDIZ [phone]
[2018-06-25] MEDS ORDERED: KETOROLAC 15 MG/ML VIAL IM SCH (10:00)
--- NOTE | 2018-06-25 11:45 | NUR ---
ADMINISTERED MAG RIDER. PT MAG LEVEL AT 1.7. PT TOLERATING WELL. WILL CONTINUE TO MONITOR PT.
[2018-06-25] MEDS ORDERED: FER325 PO (11:47)
[2018-06-25] MEDS ORDERED: VITC500 PO (11:47)
[2018-06-25] MEDS ORDERED: GABA-638 PO (11:47)
[2018-06-25] MEDS ORDERED: ACET-9529 PO (11:47)
[2018-06-25] MEDS ORDERED: MAG SULF 2000 MG/WATER PREMIX 50 ML IV SCH (12:00)
[2018-06-25 13:43] LABS: EOSINOPHILS # (AUTO) 0.3 K/uL (0-0.4); LYMPHOCYTES # (AUTO) 0.6 K/uL (2.5-16.5); MEAN CORPUSCULAR HGB CONC 33 g/dL (33-37); MONOCYTES # (AUTO) 0.9 K/uL (0.8-1.0); RED BLOOD CELL COUNT(AUTO) 2.43 MIL/uL (4.20-5.40)
[2018-06-25 13:53] LABS: BASOPHILS % (AUTO) 0.2 % (0.0-2.0); HEMATOCRIT 20.9 % (36-48); LYMPHOCYTES % (AUTO) 10.1 % (20.5-51.1); MEAN CORPUSCULAR HEMOGLOBIN 28 pg (27-31); MEAN CORPUSCULAR VOLUME 85.9 fL (80-94); NEUTROPHILS # (AUTO) 4.6 K/uL (1.8-7.7); NEUTROPHILS % (AUTO) 70.7 % (42.2-75.2); PLATELET COUNT (AUTO) 189 K/uL (140-450); RED CELL DISTRIBUTION WIDTH 14.2 % (11.6-13.7); WHITE BLOOD COUNT (AUTO) 6.4 K/uL (4.8-10.8)
--- NOTE | 2018-06-25 13:57 | NUR ---
CRITICAL LAB: HGB 6.8. NOTIFIED DR. ABDI. AWAITING ORDERS.
[2018-06-25 13:58] LABS: HEMOGLOBIN 6.8 g/dL (12.0-16.0)
[2018-06-25] MEDS ORDERED: DOCU-299 PO (14:00)
[2018-06-25] MEDS ORDERED: ALBUTEROL SULFATE/IPRATROPIU 3 ML SOL IH PRN (14:05)
--- NOTE | 2018-06-25 14:09 | NUR ---
CALLED CARMINE AT [facility] [phone] THAT WE HOLD THE PT TODAY FOR LOW HEMOGLOBIN 6.8 AND BLOOD TRANSFUSION AND WILL CHECK H/H TOMORROW. CALLED [facility] SPOKE WITH DANITZA LEWIS THAT HOLD THE D/C TODAY AND WILL F/U TOMORROW.
--- NOTE | 2018-06-25 14:35 | NUR ---
06/25/18 RD INITIAL ASSESSMENT COMPLETED PLEASE REFER TO NUTRITION ASSESSMENT UNDER CARE ACTIVITY FOR ESTIMATED NUTRITIONAL NEEDS. 1. CONTINUE REGULAR DIET TOLERATED 2. FNS WILL ADD HEALTH SHAKE BID 3. RD TO FOLLOW-UP 3-5 DAYS, MODERATE RISK QUINTON NUNEZ RD
[2018-06-25] MEDS ORDERED: XAR10 PO (14:44)
[2018-06-25] MEDS ORDERED: BISACODYL 10 MG SUPP RC SCH (15:00)
--- NOTE | 2018-06-25 15:50 | NUR ---
STARTED AN IV ON R FOOT 22G. PT TOLERATED WELL.
[2018-06-25 16:00] VITALS: BP 124/36
--- NOTE | 2018-06-25 16:35 | NUR ---
ADMINISTERED THE SUPPOSITORY LATE. PT WAS SLEEPING ALL AFTERNOON.
[2018-06-25] MEDS: FUROSEMIDE 20 MG TAB PO SCH ×2 (17:00→20:54)
[2018-06-25] MEDS: ACETAMINOPHEN 325 MG TAB PO PRN (17:07)
--- NOTE | 2018-06-25 17:30 | NUR ---
PT HAD A LARGE BM. COLLECTED SAMPLE OF STOOL FOR OCCULT BLOOD. SENT TO LAB.
--- NOTE | 2018-06-25 17:40 | NUR ---
PRE MEDICATED PT WITH TYLENOL AND BENADRYL. THERE WAS AN ORDER FOR LASIX BUT DIDN'T GIVE. TO BE GIVEN POST TRANSFUSION. STARTED BLOOD TRANSFUSION. GRANDSON AT BEDSIDE. PT TOLERATING WELL. V/S GOOD. PT HAD A SLIGHT FEVER BEFORE BUT NOW BETTER AFTER TYLENOL. WILL CONTINUE TO MONITOR PT.
--- NOTE | 2018-06-25 19:30 | NUR ---
ENDORSED PT TO THE VP OF DIGITAL MARKETING NURSE. PT IS IN STABLE CONDITION.
--- NOTE | 2018-06-25 19:31 | NUR ---
RECEIVED BEDSIDE REPORT FROM AM SHIFT RN. A/OX4. ABLE TO MAKE NEEDS KNOWN. DISCUSSED PLAN OF CARE WITH PT. VERBALIZE UNDERSTANDING. IV 22 G IN R FOOT. CURRENTLY RECEIVING BLOOD TRANSFUSION. IV SITE CLEAN DRY PATENT. NO SIGNS OR SYMPTOMS OF DISTRESS. SKIN NON INTACT. S/P ORIF L HUMERAL. CAST IS DRY AND INTACT. SLING IS PLACED. BLISTERS BEHIND ARM. BED IN LOW POSITION. CALL LIGHT WITHIN REACH. WILL CONTINUE TO MONITOR.
[2018-06-25] MEDS: NACL 0.9% 1,000 ML IV SCH (20:34)
--- NOTE | 2018-06-25 22:30 | NUR ---
PT RESTING IN BED WHILE GRANDDAUGHTER VISITING AT BEDSIDE. NO SIGNS OF DISTRESS NOTED. WILL CONTINUE TO MONITOR.
[2018-06-26] VITALS: BP 123/38
[2018-06-26] MEDS ORDERED: FUROSEMIDE 20 MG TAB PO SCH
--- NOTE | 2018-06-26 | NUR ---
VITALS TAKEN. 123/38 BP 70P 99.3F 95 O2 20R. TOLERATED WELL. WILL CONTINUE TO MONITOR.
[2018-06-26 00:53] LABS: BASOPHILS % (AUTO) 0.3 % (0.0-2.0); EOSINOPHILS # (AUTO) 0.5 K/uL (0-0.4); EOSINOPHILS % (AUTO) 6.5 % (0.0-4.0); HEMATOCRIT 26.6 % (36-48); HEMOGLOBIN 8.8 g/dL (12.0-16.0); LYMPHOCYTES # (AUTO) 0.8 K/uL (2.5-16.5); MEAN CORPUSCULAR HEMOGLOBIN 29 pg (27-31); MEAN CORPUSCULAR HGB CONC 33 g/dL (33-37); MEAN CORPUSCULAR VOLUME 86.8 fL (80-94); MONOCYTES % (AUTO) 12.2 % (1.7-9.3); NEUTROPHILS # (AUTO) 5.7 K/uL (1.8-7.7); PLATELET COUNT (AUTO) 200 K/uL (140-450); RED BLOOD CELL COUNT(AUTO) 3.07 MIL/uL (4.20-5.40); RED CELL DISTRIBUTION WIDTH 14.5 % (11.6-13.7); WHITE BLOOD COUNT (AUTO) 8.1 K/uL (4.8-10.8)
[2018-06-26] MEDS: HYDROcodone/APAP 7.5/325 MG 1 TAB PO PRN ×2 (01:13→06:55)
--- NOTE | 2018-06-26 02:00 | NUR ---
PT SLEEPING IN BED. NO SIGNS OF RESP DISTRESS OR DISCOMFORT NOTED. EASILY AROUSABLE. BED IN LOW POSITION. CALL LIGHT WITHIN REACH. WILL CONTINUE TO MONITOR.
--- NOTE | 2018-06-26 04:17 | NUR ---
PT REMAINS SLEEPING IN BED. NO SIGNS OF RESP DISTRESS OR DISCOMFORT NOTED. EASILY AROUSABLE. BED IN LOW POSITION. CALL LIGHT WITHIN REACH. WILL CONTINUE TO MONITOR.
[2018-06-26] MEDS: LEVOTHYROXINE 0.025 MG TAB PO SCH (05:50)
--- NOTE | 2018-06-26 05:50 | NUR ---
ADMINISTERED MED TO PATIENT. EDUCATED ON SIDE EFFECTS. VERBALIZED UNDERSTANDING. TOLERATED WELL. WILL CONTINUE TO MONITOR.
[2018-06-26 06:43] LABS: BASOPHILS % (AUTO) 0.3 % (0.0-2.0); EOSINOPHILS # (AUTO) 0.5 K/uL (0-0.4); EOSINOPHILS % (AUTO) 7.4 % (0.0-4.0); HEMATOCRIT 25.6 % (36-48); HEMOGLOBIN 8.6 g/dL (12.0-16.0); LYMPHOCYTES # (AUTO) 0.9 K/uL (2.5-16.5); LYMPHOCYTES % (AUTO) 11.7 % (20.5-51.1); MEAN CORPUSCULAR HEMOGLOBIN 29 pg (27-31); MEAN CORPUSCULAR HGB CONC 34 g/dL (33-37); MEAN CORPUSCULAR VOLUME 86.2 fL (80-94); MONOCYTES # (AUTO) 0.9 K/uL (0.8-1.0); MONOCYTES % (AUTO) 12.4 % (1.7-9.3); NEUTROPHILS % (AUTO) 68.2 % (42.2-75.2); PLATELET COUNT (AUTO) 194 K/uL (140-450); RED BLOOD CELL COUNT(AUTO) 2.97 MIL/uL (4.20-5.40); RED CELL DISTRIBUTION WIDTH 14.3 % (11.6-13.7); WHITE BLOOD COUNT (AUTO) 7.3 K/uL (4.8-10.8)
--- NOTE | 2018-06-26 06:44 | NUR ---
WILL ENDORSE PT TO DAY SHIFT RN. PT REMAINS SLEEPING IN BED. PT IN STABLE CONDITION.
--- NOTE | 2018-06-26 06:55 | NUR ---
ADMINISTERED NORCO TO PT. PAIN 6 ON ADULT SCALE. EDUCATED ON SIDE EFFECTS. VERBALIZED UNDERSTANDING. TOLERATED WELL.
[2018-06-26 07:02] LABS: ANION GAP 11.9 (8-16); CARBON DIOXIDE 22.4 mmol/L (21-32); CREATININE 1.1 mg/dL (0.6-1.3); POTASSIUM 4.3 mmol/L (3.5-5.1)
[2018-06-26 07:11] LABS: MAGNESIUM 2.2 mg/dL (1.8-2.4); PHOSPHORUS 2.5 mg/dL (2.5-4.9)
--- NOTE | 2018-06-26 07:28 | NUR ---
RECEIVED REPORT FROM RECONCILIATION COORDINATOR NURSE JEREMY FOR CONTINUITY OF CARE. PT IN STABLE CONDITION. RESPIRATIONS EVEN UNLABORED. ROOM AIR. NO IV ACCESS. SAFETY MEASURES IN PLACE. CALL LIGHT AT BEDSIDE. BED IN LOW POSITION. BED ALARM ON. WILL CONTINUE TO MONITOR.
[2018-06-26 08:00] VITALS: BP 126/53
[2018-06-26] MEDS ORDERED: diphenhydrAMINE 2% 30 GM TUBE TP SCH (09:00)
[2018-06-26] MEDS: VIT-B COMP/VIT-C/FOLIC ACID 1 TAB PO SCH (09:00)
[2018-06-26] MEDS: FERROUS SULFATE 325 MG TABEC PO SCH (09:00)
[2018-06-26] MEDS: HYDROXYCHLOROQUINE 200 MG TAB PO SCH (09:00)
[2018-06-26] MEDS: ATENOLOL 25 MG TAB PO SCH (09:00)
[2018-06-26] MEDS: amLODIPine 5 MG TAB PO SCH (09:00)
[2018-06-26] MEDS: PANTOPRAZOLE 40 MG INJ VIAL IV SCH (09:00)
[2018-06-26] MEDS: DULoxetine 30 MG CAPDR PO SCH (09:00)
[2018-06-26] MEDS: ASCORBIC ACID 500 MG TAB PO SCH (09:01)
[2018-06-26] MEDS: CHOLESTYRAMINE 4 GM/9 GM PKT PO SCH (09:01)
[2018-06-26] MEDS: ALPRAZolam 0.5 MG TAB PO SCH (09:01)
[2018-06-26] MEDS: sulfaSALAzine 500 MG TAB PO SCH (09:01)
[2018-06-26] MEDS: GABAPENTIN 300 MG CAP PO SCH (09:02)
[2018-06-26] MEDS: ACETAMINOPHEN 325 MG TAB PO PRN (09:09)
--- NOTE | 2018-06-26 09:45 | NUR ---
REPOSITIONED AND CLEANED PT AFTER URINATION. PT TOLERATED WELL. BED IN LOW POSITION. BED ALARM ON. CALL LIGHT AT BEDSIDE. WILL CONTINUE TO MONITOR.
--- NOTE | 2018-06-26 10:28 | NUR ---
CALLED [facility] SPOKE WITH EUGENIE FOR BED CONFIRMATION , PER EUGENIE PT CAN GO TO ROOM 39B UNDER THE CARE OF DR ORNELAS. ARRANGED TRANSPORT WITH [facility] BLS LEVEL ,[facility] MARKER TIME WILL BE 1 PM CHARGE NURSE ALLAN VASQUEZ AWARE.
--- NOTE | 2018-06-26 12:35 | NUR ---
GAVE REPORT TO MURALI STAFF NURSE AT [facility]. MURALI VERBALIZED UNDERSTANDING OF REPORT. ALL QUESTIONS ANSWERED AT THIS TIME.
[2018-06-26] MEDS ORDERED: PNEUMOCOCCAL VACCINE 23 MCG/0.5 ML VIAL IMVAC SCH (13:00)
--- NOTE | 2018-06-26 13:20 | NUR ---
GAVE DISCHARGE INSTRUCTIONS, PT VERBALIZED UNDERSTANDING OF INSTRUCTIONS. PNA VACCINE GIVEN AT THIS TIME. WOUND ASSESSMENT AND PICTURES TAKEN. OLD BANDAGE REMOVED FROM LEFT SHOULDER, CLEANED WITH SALINE. DRESSED WITH GAUZE SECURED WITH TAPE. MEDICATION RECEIVED FROM PHARMACY GIVEN TO PT FOR TRANSFER. ID BAND REMOVED. TRANSPORT INSTRUCTIONS GIVEN TO TRANSPORT TEAM. TRANSPORT TEAM VERBALIZED UNDERSTANDING OF INSTRUCTIONS. ALL QUESTIONS ANSWERED AT THIS TIME. PT LOADED ON [employer] IN STABLE CONDITION.
== END 2018-06-26 13:20 | DRG 492 ==
LOC: MED 14:14 → MTU 19:18 → MMU 21:56
PROVIDERS: ADMIT General Practice; ATTEND General Practice
PROC: 0PSG06Z Reposition Left Humeral Shaft with Intramedullary Internal Fixation Device, Open Approach (ICD-10-PCS; principal; 2018-06-25)
PROC: 30233N1 Transfusion of Nonautologous Red Blood Cells into Peripheral Vein, Percutaneous Approach (ICD-10-PCS; 2018-06-25)
PROC: 3E0234Z Introduction of Serum, Toxoid and Vaccine into Muscle, Percutaneous Approach (ICD-10-PCS; 2018-06-26)
DX: S42.202A Unspecified fracture of upper end of left humerus, initial encounter for closed fracture (principal); N17.0 Acute kidney failure with tubular necrosis; G93.41 Metabolic encephalopathy; N39.0 Urinary tract infection, site not specified; E87.1 Hypo-osmolality and hyponatremia; E44.1 Mild protein-calorie malnutrition; G90.8 Other disorders of autonomic nervous system; Z68.39 Body mass index [BMI] 39.0-39.9, adult; M06.9 Rheumatoid arthritis, unspecified; I10 Essential (primary) hypertension; E78.5 Hyperlipidemia, unspecified; D64.9 Anemia, unspecified; E66.9 Obesity, unspecified; E86.0 Dehydration; K21.9 Gastro-esophageal reflux disease without esophagitis; M17.0 Bilateral primary osteoarthritis of knee; I27.20 Pulmonary hypertension, unspecified; E83.42 Hypomagnesemia; E87.8 Other disorders of electrolyte and fluid balance, not elsewhere classified; E83.51 Hypocalcemia; M48.07 Spinal stenosis, lumbosacral region; W01.0XXA Fall on same level from slipping, tripping and stumbling without subsequent striking against object, initial encounter; Y93.89 Activity, other specified; Y92.89 Other specified places as the place of occurrence of the external cause; Z23 Encounter for immunization; Z90.49 Acquired absence of other specified parts of digestive tract; Z90.710 Acquired absence of both cervix and uterus; Y99.8 Other external cause status
CPT/HCPCS: 36415; 70450; 71045; 72131; 73030; 73060; 73562; 76001; 80048; 80053; 80305; 81001; 82150; 82272; 82607; 82728; 82746; 82948; 83036; 83540; 83690; 83735; 83880; 84100; 84436; 84439; 84443; 84479; 84484; 85025; 85045; 85610; 85730; 86886; 86900; 86901; 86920; 87081; 87086; 90732; 93005; 93880; 93925; 93970; 96374; 96375; 96376; 97116; 97161-GP; 97530; 99285; C1713; C9113; J0690; J0696; J1170; J1644; J1885; J2001; J2250; J2270; J2405; J2704; J3010; J3475; J3490; J7030; J7060; P9016; Q0092; Q0163

== ENCOUNTER 2018-07-13 09:02 | Inpatient (IN) | payer OTHER, MEDICAID ==
[~2018-07-13] VITALS: Ht 149.9 cm; Wt 111.6 kg
[~2018-07-13 09:02] MED LIST: ACET-9529 PO; ALPR0.5T2 PO; AMLO5TAB5 PO; ATEN25TA7 PO; DOCU-299 PO; DULO60EC75 PO; FER325 PO; FLUO118.1 TP; GABA-638 PO; HYDR-3320 PO; HYDR200T5 PO; LEVO0.0211 PO; MECL-322 PO; OMEP40EC14 PO; QUEPKT PO; SIMV20TA6 PO; SUL500 PO; TOFA11TA PO; TRAM50TA1 PO; VITA1TAB44 PO; VITC500 PO; XAR10 PO
--- NOTE | 2018-07-13 09:02 | NUR ---
Patient BIBA ACLS from [facility], transferred to bed 6. RN evaluating patient at bedside.
--- NOTE | 2018-07-13 09:12 | NUR ---
68 Y FEMALE BIBA FROM [facility] C/O SOB X 2 HOURS. PER [facility] PT 02 SAT WAS IN 80'S, AND PUT ON 15L O2 VIA NON-REMBREATHER AT [facility], CURRENTLY SATING AT 99%, WHEEZES, RONCHI, LABORED BREATHING. PT USES ACCESSORY MUSCLE. PT DENIES PAIN AT THIS TIME. SWELLING IN THE LOWER RIGHT EXTREMITY. VSS. PT AA0X4. BED IS DOWN, LOCKED, BED RAIL X 1, ERMD TO SEE PT. HX-GERD, ANEMIA, UNSTEADY GAIT, MORBID OBESITY, NEUROPATHY, HTN, URINARY INCOTINENCE, OA BL HIPS, HYPOTHYROIDISM, LIPIDEMIA RX- SEE MED REC Addendum: 07/13/18 at 0953 by [email or web address] SWELLING IN LEFT LOWER EXTREMITY
--- NOTE | 2018-07-13 09:24 | NUR ---
Dr. Hinton evaluating patient at bedside.
--- NOTE | 2018-07-13 09:30 | NUR ---
EMT AT BEDSIDE FOR EKG
--- NOTE | 2018-07-13 09:47 | NUR ---
# 14 FR Urinary catheter inserted utilizing sterile technique. Immediate return of YELLOW urine noted. Urine sample collected and sent to lab. Pt tolerated procedure WELL.
--- NOTE | 2018-07-13 09:47 | NUR ---
LAB AT BEDSIDE
[2018-07-13 10:04] LABS: BASOPHILS # (AUTO) 0.1 K/uL (0.00-0.22); BASOPHILS % (AUTO) 0.9 % (0.0-2.0); EOSINOPHILS # (AUTO) 0.4 K/uL (0-0.4); EOSINOPHILS % (AUTO) 4.8 % (0.0-4.0); HEMATOCRIT 23.6 % (36-48); HEMOGLOBIN 7.6 g/dL (12.0-16.0); LYMPHOCYTES # (AUTO) 1.1 K/uL (2.5-16.5); LYMPHOCYTES % (AUTO) 13.9 % (20.5-51.1); MEAN CORPUSCULAR HEMOGLOBIN 28 pg (27-31); MEAN CORPUSCULAR HGB CONC 32 g/dL (33-37); MEAN CORPUSCULAR VOLUME 87.7 fL (80-94); MONOCYTES # (AUTO) 0.9 K/uL (0.8-1.0); MONOCYTES % (AUTO) 10.8 % (1.7-9.3); NEUTROPHILS # (AUTO) 5.6 K/uL (1.8-7.7); NEUTROPHILS % (AUTO) 69.6 % (42.2-75.2); PLATELET COUNT (AUTO) 429 K/uL (140-450); RED CELL DISTRIBUTION WIDTH 14.8 % (11.6-13.7)
--- NOTE | 2018-07-13 10:07 | NUR ---
XRAY AT BEDSIDE
[2018-07-13 10:11] LABS: APPEARANCE,URINE CLOUDY (CLEAR); BILIRUBIN,URINE NEGATIVE (NEGATIVE); BLOOD, URINE TRACE-I (NEGATIVE); COLOR,URINE YELLOW (YELLOW); LEUKOCYTE ESTERASE ,URINE 3+ (NEGATIVE); NITRITE, URINE POSITIVE (NEGATIVE); PH,URINE 5.5 (5.0-9.0); UGLUCOSE NEGATIVE (NEGATIVE)
[2018-07-13 10:24] LABS: ALBUMIN 2.9 g/dL (3.4-5.0); ANION GAP 13.2 (8-16); CARBON DIOXIDE 20.1 mmol/L (21-32); CREATININE 1.5 mg/dL (0.6-1.3); TOTAL BILIRUBIN 0.3 mg/dL (0.0-1.0)
[2018-07-13 10:26] LABS: PROTHROMBIN TIME 10.1 secs (10.8-13.4)
[2018-07-13 10:27] LABS: POTASSIUM 6.3 mmol/L (3.5-5.1)
--- NOTE | 2018-07-13 10:27 | NUR ---
POTASSIUM 6.3
[2018-07-13] MEDS ORDERED: FUROSEMIDE 40 MG/4 ML VIAL IVP ONE (10:30)
[2018-07-13 10:32] LABS: RBC,URINE 0-5 /HPF (0-5); WBC,URINE TOO MANY TO COUNT /HPF (0-5)
--- NOTE | 2018-07-13 11:07 | NUR ---
# 16 FR Downing catheter with 10 ml utilizing sterile technique. Immediate return of 150 ml YELLOW urine noted. Bedside drainage bag placed below level of bladder. Urine sample collected and sent to lab. Pt tolerated procedure WELL .
[2018-07-13] MEDS: NACL 0.9% 1,000 ML IV SCH (11:29)
[2018-07-13] MEDS ORDERED: HYDROCODONE PO PRN (11:30)
[2018-07-13] MEDS ORDERED: LEVOFLOXACIN 500 MG/D5W PREMIX 100 ML IV ONE (11:30)
[2018-07-13] MEDS ORDERED: SODIUM POLYSTYRENE 15 GM/60 ML UDBTL PO ONE (11:30)
[2018-07-13] MEDS ORDERED: ACETAMINOPHEN PO PRN (11:30)
[2018-07-13] MEDS ORDERED: ALBUTEROL 0.083% 2.5 MG/3 ML NEBU INH SCH ×2 (11:30→13:30)
[2018-07-13] MEDS ORDERED: ONDANSETRON 4 MG/2 ML VIAL IM/IVP PRN (11:30)
[2018-07-13] MEDS ORDERED: DEXTROSE 50% 50 ML SYR IVP SCH (11:30)
[2018-07-13] MEDS ORDERED: CALCIUM GLUCONATE 10% 1000 MG/10 ML VIAL IVP SCH (11:30)
[2018-07-13] MEDS ORDERED: INSULIN REGULAR, HUMAN 100 UNIT/ML VIAL IVP SCH (11:30)
[2018-07-13] MEDS ORDERED: DOCUSATE SODIUM 100 MG GELCAP PO PRN (11:30)
[2018-07-13] MEDS ORDERED: PIPERACILLIN/TAZOBACTAM 3.375 GM in DEXTROSE 5% 50 ML IV SCH (12:00)
--- NOTE | 2018-07-13 12:07 | NUR ---
PT STARTED ON NC 2 L
--- NOTE | 2018-07-13 12:22 | NUR ---
PATIENT OXYGEN SAT AT 83%, STARTED ON 4 L NC
--- NOTE | 2018-07-13 12:44 | NUR ---
PATIENT STARTED ON 10 L SIMPLE MASK
--- NOTE | 2018-07-13 12:47 | NUR ---
PATIENT OXYGEN SAT AT 95% SIMPLE MASK 10 L
--- NOTE | 2018-07-13 12:53 | NUR ---
PT C/O GENERALIZED PAIN 11/26. DR PERALES NOTIFIED
--- NOTE | 2018-07-13 13:05 | NUR ---
Dr. Cordova evaluating patient at bedside.
--- NOTE | 2018-07-13 13:16 | NUR ---
REGULAR DIET ORDERED FOR PT
[2018-07-13] MEDS ORDERED: MORPHINE SULFATE 4 MG/ML SYR IVP ONE (13:25)
[2018-07-13 13:37] VITALS: BP 141/47
--- NOTE | 2018-07-13 13:37 | NUR ---
RECEIVED BEDSIDE REPORT FROM LUKAS FRAZIER RN. PATIENT ON TELE MONITOR AND STANDARD PRECAUTIONS IN PLACE. PATIENT ON 10L O2 VIA SIMPLE MASK, NO S/S OF DISTRESS. FALL RISK PROTOCOL IN PLACE. IV ON R AC 20G INFUSING NS AT 60, IV ASYMPTOMATIC PATENT AND INTACT. SKIN INTACT. CROUCH CATHETER INSERTED IN ER ON 07/13/18. BED IN LOW POSITION, CALL LIGHT WITHIN REACH, SIDE RAILS X2 UP
--- NOTE | 2018-07-13 13:37 | NUR ---
Patient will be admitted to care of DR RIGGS. Admited to TELE. Will go to room 127 B. Belongings list completed. Report to DANIELLE VASQUEZ.
[2018-07-13] MEDS ORDERED: PIPER/TAZO 3.375GM/D5W PREMIX 50 ML IV SCH (13:45)
[2018-07-13 13:55] LABS: MAGNESIUM 2.2 mg/dL (1.8-2.4); PHOSPHORUS 5.7 mg/dL (2.5-4.9)
[2018-07-13] MEDS ORDERED: SULF500T6 PO (14:04)
[2018-07-13] MEDS ORDERED: MEDICATION REC. PHARMACY CONS. 1 EA MISC MC PRN (14:20)
--- NOTE | 2018-07-13 14:32 | NUR ---
ADMINISTERED D50 IVP ONCE ORDERED
[2018-07-13] MEDS ORDERED: MORPHINE SULFATE 2 MG/ML SYR IVP SCH (15:15)
[2018-07-13 16:00] VITALS: BP 117/48
[2018-07-13] MEDS: PIPER/TAZO 3.375GM/D5W PREMIX 50 ML IV SCH (17:24)
[2018-07-13] MEDS: CALCIUM ACETATE 667 MG TAB PO SCH (17:24)
--- NOTE | 2018-07-13 17:30 | NUR ---
PATIENT SLEEPING, ON 12 L O2 VENTURI MASK, NO S/S OF RESPIRATORY DISTRESS
[2018-07-13 18:18] LABS: ANION GAP 12.5 (8-16); CARBON DIOXIDE 22.3 mmol/L (21-32); CREATININE 1.5 mg/dL (0.6-1.3); POTASSIUM 4.8 mmol/L (3.5-5.1)
--- NOTE | 2018-07-13 19:25 | NUR ---
Received patient on current settings: AC 600 Rate 14 Fio2 28% PEEP 5. Patient is trach'd with a size 6 Shiley XLT that is secure with trach ties and protective gauze is in place that is clean and dry. Cuff is deflated. Stoma appears clean, dry and healthy. Patient is awake and quiet. Treatment given inline with no incident or adverse effects. B/S: Diminished bilaterally pre and post inline treatment. Did not suction patient. Vent settings and alarms verified. Ambu bag at bedside. Addendum: 07/13/18 at 2210 by Mayda Ruiz RT DISREGARD WRONG PATIENT.
--- NOTE | 2018-07-13 19:25 | NUR ---
GAVE BEDSIDE REPORT TO CHRISTINA LUNA FOR CONTINUITY OF CARE. PATIENT ENDORSED IN STABLE CONDITION
--- NOTE | 2018-07-13 19:27 | NUR ---
RECEIVED PT FROM DANIELLE RN PT HUNGARIAN SPEAKER AAOX4 ON MASK 02 SAT 97 NOT RESP DISTRESS NOTED , IV ON RT AC INFUSING WELL BOTHARMS EDEMATOUS FOLEYCATH DRAINING WELL YELLOW URINE, ONTELMETRY SR INITIAL ASSESSMENT DONE
[2018-07-13 20:00] VITALS: BP 114/44
[2018-07-13] MEDS: ALBUTEROL SULFATE/IPRATROPIU 3 ML SOL IH SCH (20:02)
--- NOTE | 2018-07-13 20:02 | NUR ---
Found patient on Venturi mask of 50% fIO2 AT 10 L/M not 15 L/M. Spo2 97. Completed HHN treatment with no incident and left patient on Venturi mask at 35% Fio2 at 9l/m. Spo2 maintained at 92%.
--- NOTE | 2018-07-13 21:00 | NUR ---
PT TAKEN WELL MED DENIES ANY PAIN OR DISCOMFORT ONCLOSE MONITORING, ON TELEMETRY SR
--- NOTE | 2018-07-13 21:00 | NUR ---
PT REPOSITIONED ON TELEMETRY SR, NOT DISTRESS NOTED IV ON RT ARM INFUSING WELL
[2018-07-13] MEDS: GABAPENTIN 300 MG CAP PO SCH (21:19)
[2018-07-13] MEDS: MIRTAZAPINE 15 MG TAB PO SCH (21:20)
[2018-07-14] VITALS: BP 117/46
--- NOTE | 2018-07-14 | NUR ---
REPOSITIONE ON TELE SR NOT DISTRESS NOTED
[2018-07-14] MEDS: PIPER/TAZO 3.375GM/D5W PREMIX 50 ML IV SCH ×4 (00:04→18:26)
[2018-07-14] MEDS: HYDROcodone/APAP 7.5/325 MG 1 TAB PO PRN ×2 (02:58→12:46)
--- NOTE | 2018-07-14 02:58 | NUR ---
PAIN MEDIC GIVEN ORDER PT WILL BE MONITORING , ON TELEMETRY SR, REPOSITIONED Q2H
--- NOTE | 2018-07-14 03:50 | NUR ---
AFTER PAIN MEDIC GIVEN PT SLEEPING WELL NOT SIGNS OF PAIN NOTED, PT ON TELEMETRY SR ;, PT REPOSITIONED Q2H
[2018-07-14 04:00] VITALS: BP 91/44
[2018-07-14] MEDS: NACL 0.9% 1,000 ML IV SCH (05:40)
[2018-07-14] MEDS: LEVOTHYROXINE 0.025 MG TAB PO SCH (06:15)
[2018-07-14] MEDS: PANTOPRAZOLE 40 MG TABEC PO SCH (06:15)
[2018-07-14 06:43] LABS: BASOPHILS # (AUTO) 0.1 K/uL (0.00-0.22); BASOPHILS % (AUTO) 0.8 % (0.0-2.0); EOSINOPHILS # (AUTO) 0.3 K/uL (0-0.4); EOSINOPHILS % (AUTO) 3.6 % (0.0-4.0); HEMATOCRIT 21.4 % (36-48); LYMPHOCYTES # (AUTO) 0.6 K/uL (2.5-16.5); LYMPHOCYTES % (AUTO) 8.5 % (20.5-51.1); MEAN CORPUSCULAR HEMOGLOBIN 29 pg (27-31); MEAN CORPUSCULAR HGB CONC 33 g/dL (33-37); MEAN CORPUSCULAR VOLUME 86.9 fL (80-94); MONOCYTES # (AUTO) 1.2 K/uL (0.8-1.0); MONOCYTES % (AUTO) 16.7 % (1.7-9.3); NEUTROPHILS # (AUTO) 5.2 K/uL (1.8-7.7); NEUTROPHILS % (AUTO) 70.4 % (42.2-75.2); PLATELET COUNT (AUTO) 338 K/uL (140-450); RED BLOOD CELL COUNT(AUTO) 2.46 MIL/uL (4.20-5.40); RED CELL DISTRIBUTION WIDTH 14.6 % (11.6-13.7); WHITE BLOOD COUNT (AUTO) 7.4 K/uL (4.8-10.8)
--- NOTE | 2018-07-14 06:48 | NUR ---
PT SLEEPING NOT RESPIRATORY DISTRESS NOTED ON TELEMETRY SR , PT WILL BE ENDORSED TO DAY SHIFT NURSE FOR CONTINUITY OF CARE ,
[2018-07-14 06:53] LABS: PHOSPHORUS 5.1 mg/dL (2.5-4.9)
[2018-07-14] MEDS: ALBUTEROL SULFATE/IPRATROPIU 3 ML SOL IH SCH ×3 (06:53→19:28)
[2018-07-14 06:59] LABS: ANION GAP 16.6 (8-16); CARBON DIOXIDE 20.9 mmol/L (21-32); CREATININE 1.5 mg/dL (0.6-1.3); POTASSIUM 4.5 mmol/L (3.5-5.1)
--- NOTE | 2018-07-14 07:30 | NUR ---
RECEIVED PT ON BED AAOX4. NO SOB NOTED. NO C/O PAIN AT THIS TIME. IV TO LEFT AC PATENT AND INTACT. CHEST DIMINISHED AIR ENTRY TO THE BASES, PT ON 9 LPM VENTURI MASK, WITH O2 SATS AT 97% . ABDOMEN SOFT, BOWEL BOWEL SOUNDS PRESENT. NON-PITTING EDEMA NOTED +2 ON BUE, ARMS ELEVATED WITH PILLOW. SCD'S IN PLACE. WITH CROUCH DRAINING MODERATE AMOUNTS OF CLEAR YELLOW URINE. INSTRUCTED PT TO CALL FOR ASSISTANCE, CALL LIGHT WITHIN REACH, VERBALIZED UNDERSTANDING.
[2018-07-14 08:00] VITALS: BP 151/89
--- NOTE | 2018-07-14 08:18 | NUR ---
CHANGED PT OT 7L OXYMIZER TO EAT SPO2 94
--- NOTE | 2018-07-14 08:28 | NUR ---
PATIENT HAS BEEN SCREENED AND CATEGORIZED HIGH NUTRITION RISK. PATIENT WILL BE SEEN WITHIN 1-2 DAYS OF ADMISSION. 07/14/[address]
[2018-07-14] MEDS ORDERED: RIVAROXABAN 10 MG TAB PO SCH (09:00)
[2018-07-14] MEDS ORDERED: NON-FORMULARY ITEM (Losartan/Hydrochlorothiazide (Losartan-Hctz 100-25 mg Tab) 1 TAB) PO SCH (09:00)
[2018-07-14] MEDS ORDERED: NON-FORMULARY ITEM (Omeprazole 1 CAP) PO SCH (09:00)
[2018-07-14] MEDS: CHOLESTYRAMINE 4 GM/9 GM PKT PO SCH (09:08)
[2018-07-14] MEDS: sulfaSALAzine 500 MG TAB PO SCH (09:08)
[2018-07-14] MEDS: ASCORBIC ACID 500 MG TAB PO SCH (09:09)
[2018-07-14] MEDS: DULoxetine 30 MG CAPDR PO SCH (09:09)
[2018-07-14] MEDS: LACTOBACILLUS RHAMNOSUS GG 1 EACH CAP PO SCH (09:09)
[2018-07-14] MEDS: ATORVASTATIN 20 MG TAB PO SCH (09:09)
[2018-07-14] MEDS: FERROUS SULFATE 325 MG TABEC PO SCH (09:09)
[2018-07-14] MEDS: LOSARTAN 50 MG TAB PO SCH (09:10)
[2018-07-14] MEDS: ATENOLOL 25 MG TAB PO SCH (09:10)
[2018-07-14] MEDS: HYDROCHLOROTHIAZIDE 25 MG TAB PO SCH (09:10)
[2018-07-14] MEDS: CALCIUM ACETATE 667 MG TAB PO SCH ×2 (09:11→18:26)
[2018-07-14] MEDS: VIT-B COMP/VIT-C/FOLIC ACID 1 TAB PO SCH (09:11)
[2018-07-14] MEDS: GABAPENTIN 300 MG CAP PO SCH ×2 (09:11→20:48)
[2018-07-14] MEDS: HYDROXYCHLOROQUINE 200 MG TAB PO SCH (09:11)
[2018-07-14] MEDS: traMADol 50 MG TAB PO SCH (09:11)
[2018-07-14] MEDS: amLODIPine 5 MG TAB PO SCH (09:12)
[2018-07-14] MEDS: ALPRAZolam 0.5 MG TAB PO SCH (09:15)
--- NOTE | 2018-07-14 09:30 | NUR ---
PT WENT TO CT DEPT IN STABLE CONDITION. Addendum: 07/14/18 at 1437 by Luisa Palacios RN [PLS DISREGARD ABOVE NOTES. WRONG TIME.
--- NOTE | 2018-07-14 09:50 | NUR ---
PT WENT TO CT DEPT IN STABLE CONDITION.
--- NOTE | 2018-07-14 10:15 | NUR ---
PT BACK FROM CT DEPT IN STABLE CONDITION.
--- NOTE | 2018-07-14 10:20 | NUR ---
DECREASED OXYMIZER TO 5L SPO2 93
[2018-07-14 12:00] VITALS: BP 114/84
--- NOTE | 2018-07-14 12:00 | NUR ---
BLE ULTRASOUND ON GOING AT THE BEDSIDE.
--- NOTE | 2018-07-14 12:15 | NUR ---
RECEIVED PT FROM CRISTINA RN PT TAMAZIGHT SPEAKER AAOX4 ON BED REST ON OXIMIZER 5 LTS ON TELEMETRY SR IV ON RT AC INFUSING WELL,NOT RESP DISTRESS NOTED INITIAL ASSESSMENT DONE
--- NOTE | 2018-07-14 14:36 | NUR ---
07/14/18 RD INITIAL ASSESSMENT COMPLETED PLEASE REFER TO NUTRITION ASSESSMENT UNDER CARE ACTIVITY FOR ESTIMATED NUTRITIONAL NEEDS. 1. RECOMMEND A RENAL DIET 2. MEDITERRANEAN DIET EDUCATION WAS PROVIDED 3. RD TO FOLLOW-UP 3-5 DAYS, MODERATE RISK QUINTON NUNEZ RD
--- NOTE | 2018-07-14 15:55 | NUR ---
PT RESTING. NO SOB NOTED. NO SIGNS OF PAIN.
[2018-07-14 16:00] VITALS: BP 98/47
--- NOTE | 2018-07-14 19:06 | NUR ---
PT AWAKE, WATCHING TV. NO SOB NOTED. NO COMPLAINTS MADE. WILL ENDORSE TO NEXT SHIFT NURSE FOR CONTINUITY OF CARE.
[2018-07-14 20:00] VITALS: BP 118/40
[2018-07-14] MEDS: MIRTAZAPINE 15 MG TAB PO SCH (20:48)
[2018-07-14] MEDS: ACETAMINOPHEN 325 MG TAB PO PRN (20:49)
--- NOTE | 2018-07-14 21:10 | NUR ---
NURSE INFORMED ME PT WAS WHEEZING, WENT TO CHECK UP PT. PT SAID SHE DID NOT WANT A BREATHING AT THE MOMENT, TOLD PT ID BE BACK TO CHECK UP ON HER . PT WAS NOT IN ANY DISTRESS
--- NOTE | 2018-07-14 22:00 | NUR ---
PT REPOSITIONED Q2H, AND PT IS ASSISTED TO USE BEDPAN VOIDING WELL
[2018-07-15] VITALS: BP 106/40
--- NOTE | 2018-07-15 | NUR ---
PT IS ASSISTED TO USED BEDPAN AND A BIG BM PASTED STOOL AND STOOL FOR OB SENT TO LAB NOT RESP DISTRES AND NOT FEVER ON TELEMETRY SR
[2018-07-15] MEDS: PIPER/TAZO 3.375GM/D5W PREMIX 50 ML IV SCH ×4 (00:47→17:38)
--- NOTE | 2018-07-15 02:00 | NUR ---
PT LABORED BREATHING RESP THERAPY HAS BEEN ASSISTING THE PT ON TELEMETRY SR REPOSITIONED Q2H,RESIDEN WAS NOTIFY PT CONDITION
[2018-07-15] MEDS: NACL 0.9% 1,000 ML IV SCH (02:10)
[2018-07-15] MEDS: ALBUTEROL SULFATE/IPRATROPIU 3 ML SOL IH PRN (03:22)
[2018-07-15 04:00] VITALS: BP 92/68
--- NOTE | 2018-07-15 04:00 | NUR ---
SPONGE BATH GIVEN LINEN CHANGED 02 SAt 92% pt cooperative to FOLLOW COMMANDS
[2018-07-15 06:02] LABS: BASOPHILS % (AUTO) 0.4 % (0.0-2.0); LYMPHOCYTES # (AUTO) 0.7 K/uL (2.5-16.5); MEAN CORPUSCULAR HEMOGLOBIN 29 pg (27-31); MONOCYTES # (AUTO) 1.3 K/uL (0.8-1.0)
[2018-07-15 06:06] LABS: EOSINOPHILS # (AUTO) 0.5 K/uL (0-0.4); EOSINOPHILS % (AUTO) 5.1 % (0.0-4.0); HEMATOCRIT 21.1 % (36-48); LYMPHOCYTES % (AUTO) 6.2 % (20.5-51.1); MEAN CORPUSCULAR HGB CONC 33 g/dL (33-37); MEAN CORPUSCULAR VOLUME 87.1 fL (80-94); MONOCYTES % (AUTO) 12.3 % (1.7-9.3); NEUTROPHILS # (AUTO) 8.2 K/uL (1.8-7.7); PLATELET COUNT (AUTO) 357 K/uL (140-450); RED BLOOD CELL COUNT(AUTO) 2.42 MIL/uL (4.20-5.40); RED CELL DISTRIBUTION WIDTH 14.7 % (11.6-13.7); WHITE BLOOD COUNT (AUTO) 10.8 K/uL (4.8-10.8)
[2018-07-15] MEDS: LEVOTHYROXINE 0.025 MG TAB PO SCH (06:08)
[2018-07-15] MEDS: PANTOPRAZOLE 40 MG TABEC PO SCH (06:08)
[2018-07-15 06:10] LABS: HEMOGLOBIN 6.9 g/dL (12.0-16.0)
--- NOTE | 2018-07-15 06:15 | NUR ---
CRITICAL LABS REPORT HEMOGLOBIN 6.9 HCT 21[address] BASHIR
[2018-07-15 06:19] LABS: CREATININE 1.7 mg/dL (0.6-1.3)
--- NOTE | 2018-07-15 06:20 | NUR ---
DR ABDI CAME TO SEE THE PT AND ORDERS TO FOLLOW
[2018-07-15 06:25] LABS: PHOSPHORUS 4.6 mg/dL (2.5-4.9)
--- NOTE | 2018-07-15 06:31 | NUR ---
PT WILL BE ENDORSED TO DAY SHIFT NURSE FOR CONTINUITY OD CARE
[2018-07-15] MEDS: ALBUTEROL SULFATE/IPRATROPIU 3 ML SOL IH SCH ×3 (06:47→19:00)
--- NOTE | 2018-07-15 06:47 | NUR ---
PATIENT PRESENTING WITH LABORED BREATHING RR AT 36 BPM ASSESSMENT COMPLETED HHN THERAPY AND RESPIRATORY DRUG X 2 SATURATION 85% ON SUPPLEMENTAL OXYGEN AT 5 LPM VIA OXYMIZER POST CHANGED OXYGEN DEVICE TO NO REBEREATHER AT 15 LPM INDUSTRIAL MAINTENANCE MILLWRIGHT TO CONTACT RESIDENT AND NO CHARGE NURSE Addendum: 07/15/18 at 0714 by Jeff Rodriguez RT DIRECTOR OF CATEGORY MANAGEMENT'S AWARE: CRISTINA/RIGO DOWNING/TRISTIAN
--- NOTE | 2018-07-15 07:23 | NUR ---
RECEIVED REPORT FROM LABORER GOLD LEAF RN. PT IS AAOX4. NO C/O PAIN AT THIS TIME. IV TO LEFT AC PATENT AND INTACT. PT ON NON-REBREATHER WITH O2 FLUCTUATING FROM 70'S TO 90'S. MD AND RT AWARE OF SITUATION. ABDOMEN SOFT WITH BOWEL SOUNDS PRESENT. NON-PITTING EDEMA NOTED +2 ON BUE, ARMS ELEVATED WITH PILLOW. SCD'S IN PLACE. INSTRUCTED PT TO CALL FOR ASSISTANCE, CALL LIGHT WITHIN REACH, VERBALIZED UNDERSTANDING.
[2018-07-15 08:00] VITALS: BP 110/58
[2018-07-15] MEDS: ATORVASTATIN 20 MG TAB PO SCH (08:38)
[2018-07-15] MEDS: CALCIUM ACETATE 667 MG TAB PO SCH (08:38)
[2018-07-15] MEDS: FERROUS SULFATE 325 MG TABEC PO SCH (08:39)
[2018-07-15] MEDS: ASCORBIC ACID 500 MG TAB PO SCH (08:39)
[2018-07-15] MEDS: ALPRAZolam 0.5 MG TAB PO SCH (08:39)
[2018-07-15] MEDS: CHOLESTYRAMINE 4 GM/9 GM PKT PO SCH (08:40)
[2018-07-15] MEDS: DULoxetine 30 MG CAPDR PO SCH (09:00)
[2018-07-15] MEDS: HYDROCHLOROTHIAZIDE 25 MG TAB PO SCH (09:00)
[2018-07-15] MEDS: ATENOLOL 25 MG TAB PO SCH (09:00)
[2018-07-15] MEDS: amLODIPine 5 MG TAB PO SCH (09:00)
[2018-07-15] MEDS: LOSARTAN 50 MG TAB PO SCH (09:01)
[2018-07-15] MEDS: LACTOBACILLUS RHAMNOSUS GG 1 EACH CAP PO SCH (09:01)
[2018-07-15] MEDS: HYDROXYCHLOROQUINE 200 MG TAB PO SCH (09:01)
[2018-07-15] MEDS: VIT-B COMP/VIT-C/FOLIC ACID 1 TAB PO SCH (09:01)
[2018-07-15] MEDS: GABAPENTIN 300 MG CAP PO SCH ×2 (09:01→21:08)
[2018-07-15] MEDS: traMADol 50 MG TAB PO SCH (09:02)
[2018-07-15] MEDS: sulfaSALAzine 500 MG TAB PO SCH (09:08)
--- NOTE | 2018-07-15 09:25 | NUR ---
ADMINISTERED PT MORNING MEDS. PT TOLERATED THEM WELL. PT O2 SAT FLUCTUATING BETWEEN 80-90'S. MD AWARE. WILL CONTINUE TO MONITOR PT CLOSELY. BED IN LOW POSITION, PT POSITIONED IN HIGH FOWLERS FOR MAXIMUM PERFUSION.
[2018-07-15] MEDS: ACETAMINOPHEN 325 MG TAB PO PRN (09:47)
[2018-07-15] MEDS ORDERED: MORPHINE SULFATE 2 MG/ML SYR IVP SCH (11:15)
--- NOTE | 2018-07-15 11:15 | NUR ---
ADMINISTERED SCHEDULED MEDS. ADMINISTERED MORPHINE FOR PAIN. REPOSITIONED PATIENT. NO SIGNS OF DISTRESS NOTED. WILL CONTINUE TO MONITOR.
[2018-07-15 12:00] VITALS: BP 130/43
--- NOTE | 2018-07-15 13:15 | NUR ---
ADMINISTERED SCHEDULED MEDICATIONS. PATIENT IS RESTING IN BED, DENIES ANY PAIN. RT AT BEDSIDE. WILL CONTINUE TO MONITOR.
[2018-07-15] MEDS ORDERED: methylPREDNISolone SS 125 MG/2 ML VIAL IVP SCH (13:25)
[2018-07-15] MEDS: methylPREDNISolone SS 125 MG/2 ML VIAL IVP SCH ×2 (13:32→21:09)
--- NOTE | 2018-07-15 14:01 | NUR ---
LATE ENTRY FOR 07/14/18 1551: ALL CLINICALS FAXED TO JEREL MCCORMACK OF [facility] AT [phone].
--- NOTE | 2018-07-15 15:30 | NUR ---
ADMINISTERED SCHEDULED MEDICATIONS. GAVE PATIENT DISCHARGE INSTRUCTIONS, REVIEWED ALL MEDICATIONS, WENT OVER FOLLOW UP INFORMATION. ANSWERED ALL QUESTIONS AND CONCERNS. PATIENT VERBALIZED UNDERSTANDING, STATED HER DAUGHTER WILL PICK HER UP. NO DISTRESS AT THIS TIME. DENIES ANY PAIN. IV WAS DISCONTINUED, CANNULA IS INTACT. MINIMAL BLEEDING AT SITE. Addendum: 07/15/18 at 1800 by Angela Mendez RN WRONG PATIENT.
--- NOTE | 2018-07-15 15:40 | NUR ---
PATIENT IS SLEEPING IN BED, EASILY AROUSABLE. NO OTHER NEEDS AT THIS TIME.
[2018-07-15 16:00] VITALS: BP 131/56
--- NOTE | 2018-07-15 16:16 | NUR ---
Dental Appliance Mechanic Note: Per Jun from [facility] , patient is on a 7 day bed hold and is one of their skilled patients (short term patients, not bed bug exterminator).
--- NOTE | 2018-07-15 16:52 | NUR ---
CARMINE FROM [facility] UPDATED OF PATIENT'S CONDITION. WILL FAX PROGRESS REPORT FOR TODAY AT [phone]
--- NOTE | 2018-07-15 17:18 | NUR ---
RECEIVED CALL FROM PORSCHE FROM LAB. PATIENTS URINE CX IS POSITIVE FOR E.COLI, ESBL, MDRO. CONTACT PRECAUTIONS IN PLACE, DR. PIPER.
--- NOTE | 2018-07-15 18:06 | NUR ---
ADMINISTERED SCHEDULED MEDICATIONS. PATIENT IS ASLEEP, EASILY AROUSABLE. NO OTHER NEEDS AT THIS TIME. WILL CONTINUE TO MONITOR.
[2018-07-15 18:27] LABS: FERRITIN 795 ng/mL (15 - 150); FOLIC ACID > 20.00 ng/mL (>3.0); TRANSFERRIN 201 mg/dL (200 - 370)
--- NOTE | 2018-07-15 19:36 | NUR ---
ENDORSED TO RETORT UNLOADER NURSE. PATIENT IS STABLE AT THIS TIME.
[2018-07-15 20:00] VITALS: BP 151/46
[2018-07-15] MEDS: MIRTAZAPINE 15 MG TAB PO SCH (21:08)
--- NOTE | 2018-07-15 21:22 | NUR ---
PLACED PATIENT ON HIGH FLOW NASAL CANNULA ( 50LPM FIO2 56.6) PATIENT IS SPO2 98 HR 67BPM. PATIENT IS STABLE AT THIS TIME AND ROSARIO OXYGEN. RT REC VERBAL ORDER FROM DAY SHIFT SATINDER THAT WANTED PATIENT ON HIGH FLOW NASAL CANNULA.
--- NOTE | 2018-07-15 21:30 | NUR ---
PT TURNED TO SIDES. NO RESPIRATORY DISTRESS NOTED.
[2018-07-16] VITALS (8 sets, daily range): BP systolic 100–139; BP diastolic 39–63
--- NOTE | 2018-07-16 00:30 | NUR ---
PT SLEEPING WELL. O2 SAT 100 %. NO RESPIRATORY DISTRESS NOTED.
--- NOTE | 2018-07-16 02:00 | NUR ---
MADE ROUNDS. PT IS ASLEEP. NO DISCOMFORT NOTED.
[2018-07-16] MEDS: NACL 0.9% 1,000 ML IV SCH ×2 (02:10→17:07)
--- NOTE | 2018-07-16 03:00 | NUR ---
PT IS ASLEEP. NO DISTRESS NOTED. O2 SAT 100%.
[2018-07-16] MEDS: methylPREDNISolone SS 125 MG/2 ML VIAL IVP SCH ×3 (05:28→20:37)
[2018-07-16] MEDS: PIPER/TAZO 3.375GM/D5W PREMIX 50 ML IV SCH ×2 (05:33)
[2018-07-16] MEDS: PANTOPRAZOLE 40 MG TABEC PO SCH (05:58)
[2018-07-16] MEDS: LEVOTHYROXINE 0.025 MG TAB PO SCH (05:58)
--- NOTE | 2018-07-16 06:00 | NUR ---
ABG'S DRAWN BY RT. WILL FOLLOW UP RESULT.
[2018-07-16 06:22] LABS: MAGNESIUM 2.2 mg/dL (1.8-2.4); PHOSPHORUS 4.4 mg/dL (2.5-4.9)
--- NOTE | 2018-07-16 06:50 | NUR ---
TRANSFERRED TO ROOM 123B , STILL CONTACT ISOLATION. ON HIGH FLOW NC O2 SAT 100%. NO DISTRESS NOTED.
[2018-07-16 07:00] LABS: ANION GAP 13.7 (8-16); CARBON DIOXIDE 23.1 mmol/L (21-32); CREATININE 1.9 mg/dL (0.6-1.3); POTASSIUM 3.8 mmol/L (3.5-5.1)
[2018-07-16 07:05] LABS: BASOPHILS % (AUTO) 0.1 % (0.0-2.0); MEAN CORPUSCULAR HGB CONC 33 g/dL (33-37); RED CELL DISTRIBUTION WIDTH 14.6 % (11.6-13.7)
[2018-07-16 07:18] LABS: EOSINOPHILS % (AUTO) 0.1 % (0.0-4.0); LYMPHOCYTES # (AUTO) 0.4 K/uL (2.5-16.5); LYMPHOCYTES % (AUTO) 4.1 % (20.5-51.1); MEAN CORPUSCULAR HEMOGLOBIN 29 pg (27-31); MEAN CORPUSCULAR VOLUME 87.4 fL (80-94); MONOCYTES # (AUTO) 0.4 K/uL (0.8-1.0); MONOCYTES % (AUTO) 4.5 % (1.7-9.3); NEUTROPHILS % (AUTO) 91.2 % (42.2-75.2); PLATELET COUNT (AUTO) 352 K/uL (140-450); RED BLOOD CELL COUNT(AUTO) 2.16 MIL/uL (4.20-5.40); WHITE BLOOD COUNT (AUTO) 8.8 K/uL (4.8-10.8)
--- NOTE | 2018-07-16 07:20 | NUR ---
RECEIVED BEDSIDE REPORT FROM CHRISTINA VERDE AND CHRISTINA CRUZ. PT STABLE, SLEEPING, BUT EASILY AROUSABLE. NO SIGNS OF DISTRESS NOTED. DENIES PAIN OR SOB. ON HIGH FLOW NC AT 60.1 L/MIN. NO REDNESS, SWELLING, OR INFLAMMATION NOTED ON IV SITE. CALL SOSA WITHIN REACH. BED IN LOWEST POSITION, BED ALARM ON. SAFETY MEASURES IN PLACE. PLAN OF CARE REVIEWED.
--- NOTE | 2018-07-16 07:20 | NUR ---
ENDORSED PT IN STABLE CONDITION TO AM NURSE.
[2018-07-16] MEDS: ALBUTEROL SULFATE/IPRATROPIU 3 ML SOL IH SCH ×3 (07:27→19:01)
[2018-07-16 07:43] LABS: HEMATOCRIT 18.9 % (36-48); HEMOGLOBIN 6.2 g/dL (12.0-16.0)
[2018-07-16] MEDS: ATORVASTATIN 20 MG TAB PO SCH ×2 (08:46→09:00)
[2018-07-16] MEDS: FERROUS SULFATE 325 MG TABEC PO SCH (08:46)
[2018-07-16] MEDS: CHOLESTYRAMINE 4 GM/9 GM PKT PO SCH (08:47)
[2018-07-16] MEDS: ASCORBIC ACID 500 MG TAB PO SCH ×2 (08:47→09:00)
[2018-07-16] MEDS: HYDROXYCHLOROQUINE 200 MG TAB PO SCH ×2 (08:47→09:00)
[2018-07-16] MEDS: GABAPENTIN 300 MG CAP PO SCH ×3 (08:47→20:36)
[2018-07-16] MEDS: LACTOBACILLUS RHAMNOSUS GG 1 EACH CAP PO SCH (08:47)
[2018-07-16] MEDS: amLODIPine 5 MG TAB PO SCH (08:48)
[2018-07-16] MEDS: DULoxetine 30 MG CAPDR PO SCH ×2 (08:48→09:00)
[2018-07-16] MEDS: traMADol 50 MG TAB PO SCH ×2 (08:49→09:00)
[2018-07-16] MEDS: VIT-B COMP/VIT-C/FOLIC ACID 1 TAB PO SCH ×2 (08:51→09:00)
[2018-07-16] MEDS: sulfaSALAzine 500 MG TAB PO SCH ×2 (08:52→09:00)
[2018-07-16] MEDS: ALPRAZolam 0.5 MG TAB PO SCH ×2 (08:52→09:00)
[2018-07-16] MEDS: MEROPENEM 1,000 MG in NACL 0.9% 100 ML IV SCH ×2 (08:53→20:46)
[2018-07-16] MEDS: LOSARTAN 50 MG TAB PO SCH (08:53)
[2018-07-16] MEDS: ATENOLOL 25 MG TAB PO SCH (08:54)
[2018-07-16] MEDS: HYDROCHLOROTHIAZIDE 25 MG TAB PO SCH (08:54)
--- NOTE | 2018-07-16 09:15 | NUR ---
ADMINISTERED SCHEDULED MERREM, FERROUS SULFATE, LACTOBACILLUS, CHOLESTYRAMINE AND NORVASC. PT IS VERY LETHARGIC, UNABLE TO STAY AWAKE TO SWALLOW ALL PO MEDICATIONS AND UNABLE TO FINISH CHOLESTYRAMINE ORAL SUSPENSION. PT GOES BACK TO SLEEP WITHIN 5-10 SECONDS OF WAKING UP. MADE DR ABDI AWARE PT IS VERY LETHARGIC AND UNABLE TO SWALLOW PILLS AT THIS TIME. DR ABDI ASSESSED PT AT BEDSIDE. PER DR ABDI, HOLD OTHER SCHEDULED PO MEDICATIONS. WILL CONTINUE TO MONITOR PT.
--- NOTE | 2018-07-16 09:29 | NUR ---
DR DUPONT AT [facility]. Addendum: 07/16/18 at 0931 by Tanner Robles RN RECEIVED VERBAL ORDER FROM DR DUPONT FOR AB LAB. WILL PUT IN ORDER.
--- NOTE | 2018-07-16 09:48 | NUR ---
SPOKE TO BOTH DR DUPONT AND DR ABDI, OK TO HOLD OFF ON ABG FOR NOW SINCE PT IS MORE COHERANT AND AROUSABLE. PER DR DUPONT, IF THE PTS STATUS CHANGES, WE WILL DO AN ABG THEN.
--- NOTE | 2018-07-16 10:05 | NUR ---
CHECKED BLOOD GLUCOSE PER DR ABDI'S ORDER, 118. WILL CONTINUE TO MONITOR.
--- NOTE | 2018-07-16 11:02 | NUR ---
CALLED PT'S SON SACHIN TABARES TO GET CONSENT FOR HIS MOTHER'S BLOOD TRANSFUSION DUE TO PT IS STILL LETHARGIC. PT'S SON AGREED, CHRISTINA BROOKS AND AIR MOTOR REPAIRER JOWIE WITNESSED.
--- NOTE | 2018-07-16 12:00 | NUR ---
SCHEDULED BENADRYL PRIOR TO BLOOD TRANSFUSION NOT GIVEN. BLOOD TRANSFUSION HAS NOT STARTED DUE TO BLOOD IS NOT AVAILABLE YET AT THIS TIME. WILL CONTINUE TO MONITOR PT.
--- NOTE | 2018-07-16 13:05 | NUR ---
ADMINISTERED SCHEDULED MEDICATION, PT TOLERATED WELL. NO OTHER NEEDS AT THIS TIME.
--- NOTE | 2018-07-16 14:00 | NUR ---
PATIENT MORE ALERT NOW, AAOX3, COMMUNICATING WITH SON AT THE BEDSIDE. WILL CONTINUE TO MONITOR.
[2018-07-16] MEDS: FUROSEMIDE 20 MG TAB PO SCH ×2 (16:00→23:38)
--- NOTE | 2018-07-16 16:00 | NUR ---
SCHEDULED LASIX FOR BLOOD TRANSFUSION IS NOT ADMINISTERED DUE TO BLOOD TRANSFUSION HAS NOT STARTED. Addendum: 07/16/18 at 1858 by Tanner Robles RN SCHEDULED BENADRYL FOR BLOOD TRANSFUSION NOT GIVEN WELL.
--- NOTE | 2018-07-16 16:22 | NUR ---
DC PLANNING: EASTON DISCUSSED CASE WITH DR. ABDI REGARDING DC PLANNING FOR [facility]. PER MD, PATIENT IS CURRENTLY ON HIGH FLOW OXYGEN OF 40 AND MOST LIKELY WILL NOT BE ABLE TO WEAN FROM HIGH FLOW IN 2 DAYS. EASTON SPOKE WITH JEREL (EASTON @ [facility] ) @ AND DISCUSSED THE CASE. ADVICE IF MD TO IS POSSIBLE TO GET APPROVAL FOR LTAC. PER JEREL, SHE WILL PRESENT THE CASE TO THEIR BUILDING MANAGER ( JENNIFER GOMEZ) AND WILL BE CALLING DR. ABDI FOR MD TO MD POSSIBLY TOMORROW. EASTON PROVIDED JEREL ABDI CONTACT NUMBER. CM TO FOLLOW UP NEEDED.
[2018-07-16] MEDS ORDERED: BISACODYL 10 MG SUPP RC SCH (16:30)
--- NOTE | 2018-07-16 16:35 | NUR ---
ADMINISTERED SCHEDULED DULCOLAX, PT TOLERATED WELL. VITAL SIGNS TAKEN, PT STABLE. PT REPOSITIONED, LINENS AND GOWN CHANGED. NO OTHER NEEDS AT THIS TIME.
--- NOTE | 2018-07-16 17:10 | NUR ---
CHANGED IV BAG, PT TOLERATED WELL.
--- NOTE | 2018-07-16 18:51 | NUR ---
RECEIVED CALL FROM LAB REGARDING 1 UNIT OF BLOOD READY AT THIS TIME. NORMAL SALINE AND Y-TUBING PREPARED, WILL ENDORSE TO BOX SHOOK PATCHER RN.
--- NOTE | 2018-07-16 19:05 | NUR ---
ENDORSED PT TO RN BETH FOR CONTINUITY OF CARE. PT STABLE.
--- NOTE | 2018-07-16 19:15 | NUR ---
RECEIVED PATIENT ON HIGH FLOW NASAL CANNULA; 40L AT 40%, PULSE OX SAT 99%. SCHEDULED BREATHING TREATMENT ADMINISTERED. TOLERATED TX WELL WITHOUT ADVERSE SIDE EFFECTS. NO RESPIRATORY DISTRESS NOTED AT THIS TIME. REMAINS ON HIGH FLOW NC AT DOCUMENTED SETTINGS. WILL CONTINUE TO MONITOR.
--- NOTE | 2018-07-16 19:30 | NUR ---
RECEIVED FROM AM RN IN BED AWAKE AND ALERT. NO SOB. RESPIRATORY THERAPIST IN HERE TO DO BREATHING TREATMENTS. PT. ABLE TO VERBALIZE NEEDS WELL IN LEBANESE AND UKRAINIAN. CARE PLANS FOR THE NIGHT AND CALL LIGHT USE DISCUSSED WITH HER. "OK" PT. FOR BLOOD TRANSFUSION 2 UNITS PRBC. PT. WITH SIGNED CONSENT . PT. AWARE OF IN COMING BLOOD TRANSFUSION . CONCRETE BUILDINGS ASSEMBLER IN HERE TO ATTEND TO HER NEEDS .
--- NOTE | 2018-07-16 20:07 | NUR ---
BLOOD TRANSFUSION STARTED AT 1999. SISTER MARYCRUZ AND FAMILY MEMBERS IN HERE AND AWARE OF BLOOD TRANSFUSION . PT. TALKING WELL WITH FAMILY MEMBERS. NO COMPLAINTS DONE AT THIS TIME. CALL LIGHT WITH IN REACH. ENCOURAGED TO CALL FOR ANY HELP SHE MAY NEED OR IF IN PAIN. TELEMETRY MONITORING NSR AT 89.
[2018-07-16] MEDS: MIRTAZAPINE 15 MG TAB PO SCH (20:37)
--- NOTE | 2018-07-16 20:46 | NUR ---
NO NOTED ADVERSE REACTIONS FROM PT. ABLE TO VERBALIZE WELL IN SOUTH KOREAN AND SETSWANA. NO PAIN COMPLAINTS DONE. MERREM IV ABT FOR 2100 WILL HOLD FOR NOW AND ADMINISTER AFTER 1 UNIT OF ONGOING BLOOD TRANSFUSION IS DONE. CHARGE NURSE AWARE.
--- NOTE | 2018-07-16 21:53 | NUR ---
DAUGHTER AND GRANDSON IN HERE TO SEE PT. PT. VERBALIZING WELL. NO SOB. DENIES PAIN. ABLE TO USE CALL LIGHT . A/O X 4. CLEAR SPEECH. ON TELEMETRY MONITORING. NO NOTED ADVERSE REACTIONS TO BLOOD TRANSFUSION #1 INFUSING.
--- NOTE | 2018-07-16 23:07 | NUR ---
PT. TURNED TO LEFT SIDE . PILLOW SUPPORT TO PRESSURE AREAS PROVIDED. BILATERAL SEQUENTIALS TO LOWER EXTREMITIES IN PLACE. NO SOB. NO PAIN COMPLAINT DONE. PT. CHANGED RT SHE STATED SHE FEELS WET WITH URINE. PT. CLEANED UP. NEW BEDDING IN PLACE. CONTENTED AFTER PERSONAL HYGIENE DONE. CALL LIGHT WITH IN REACH. TELEMETRY MONITORING. ABLE TO VERBALIZE WELL AND CARRY A CONVERSATION.
[2018-07-16] MEDS ORDERED: FUROSEMIDE 20 MG TAB ONE (23:46)
--- NOTE | 2018-07-16 23:52 | NUR ---
MERREM IV ABT INFUSING AT THIS TIME RT 1ST UNIT OF PRBC DONE. EXPLAINED TO PT. AWARE. PT. AT THIS TIME REQUESTED FOR SNACK. PROVIDED WITH APPLE SAUCE AND PEANUT BUTTER SANDWICH. PIN SORTER AND BAGGER ASSISTING HER AND FEEDING HER . TOLERATING FOOD WELL.
--- NOTE | 2018-07-17 00:59 | NUR ---
SECOND UNIT OF PRBC TO BE TRANSFUSED. PT. TURNED BY [employer] PUBLIC SCHOOL TEACHER . WANTS TO BE RE-POSITIONED. PILLOW SUPPORT TO PRESSURE AREAS. RESPIRATORY THERAPIST IN HERE TO GIVE BREATHING TREATMENTS. PT. ABLE TO CARRY A CONVERSATION WELL. SPEAKS PERSIAN AND MARSHALLESE WELL. CALL LIGHT WITH IN REACH. IVF SITE RE-CHECKED FOR PATENCY. WITH GOOD BLOOD RETURN. MADE PT. SEE PATENCY AND BLOOD RETURN. "OK". GOOD AFFECT. TELEMETRY MONITORING.
--- NOTE | 2018-07-17 01:45 | NUR ---
PT. SLEEPING IN AND OUT. WAKES UP EASILY. NEEDS MET. ABLE TO VERBALIZE SIMPLE NEEDS WELL IN ETHIOPIAN AND LATVIAN. CALL LIGHT WITH IN REACH. TELEMETRY MONITORING. NO NOTED ADVERSE REACTIONS WITH ON GOING PRBC #2 BLOOD TRANSFUSION. TELEMETRY MONITORING.
--- NOTE | 2018-07-17 02:34 | NUR ---
PT. AWAKE AND REQUESTED TO BE CLEANED RT SHE THINKS SHE HAS BM. CLEANED BY LABORER DEMOLITION AND TURNED TO SIDES WITH PILLOW SUPPORT. KEPT CLEAN , DRY AND COMFORTABLE. NO SOB. 02 SAT AT PRESENT 100 %. NO RESTLESSNESS NOTED. CALL LIGHT WITH IN REACH. NEEDS MET. DENIES PAIN. NO ADVERSE REACTIONS NOTED TO #2 UNIT PRBC BLOOD TRANSFUSION.
--- NOTE | 2018-07-17 02:55 | NUR ---
PT. SLEEPING AT THIS TIME. NEEDS ANTICIPATED AND MET. ABLE TO VERBALIZE NEEDS WELL. CALL LIGHT WITH IN REACH. BED ALARM ON.
[2018-07-17] MEDS: ALBUTEROL SULFATE/IPRATROPIU 3 ML SOL IH PRN (03:42)
--- NOTE | 2018-07-17 03:46 | NUR ---
PATIENT COMPLAINS OF FEELING SHORT OF BREATH. PRN BREATHING TX ADMINISTERED. TOLERATED TX WELL WITHOUT ADVERSE SIDE EFFECTS. PATIENT STATES TO BE "FEELING A LITTLE BETTER". WILL CONTINUE TO MONITOR.
--- NOTE | 2018-07-17 04:11 | NUR ---
PT. CLEANED BY CNAS RT BEDDING WET WITH URINE. ON HIGH FLOW WITH 02N SAT 100 %. CALL LIGHT WITH IN REACH. PT.S IVF SITE INTACT AND RE-CHECKED FOR PLACEMENT. WITH GOOD BLOOD RETURN. NO PAIN COMPLAINT. SLLEPT BACK AFTER PERSONAL HYGIENE CARE.
[2018-07-17 04:14] VITALS: BP 135/53
--- NOTE | 2018-07-17 04:30 | NUR ---
BLOOD TRANSFUSION #2 UNIT DONE. NO PAIN COMPLAINTS DONE. TELEMETRY MONITORING. NO ADVERSE REACTIONS. GOOD AFFECT. VERBALIZING WELL.
[2018-07-17] MEDS: methylPREDNISolone SS 125 MG/2 ML VIAL IVP SCH ×3 (04:54→21:04)
[2018-07-17] MEDS ORDERED: FUROSEMIDE 20 MG TAB ONE (04:59)
--- NOTE | 2018-07-17 05:04 | NUR ---
PT. WAKES UP EASILY. CNAS RE-POSITIONED HER RT SHE KEEPS SLIDING DOWN TO LOWER PART OF BED. VERBALIZES WELL. NO COMPLAINTS OF PAIN DONE.
[2018-07-17] MEDS: LEVOTHYROXINE 0.025 MG TAB PO SCH (06:33)
[2018-07-17] MEDS: PANTOPRAZOLE 40 MG TABEC PO SCH (06:33)
[2018-07-17 06:53] LABS: BASOPHILS % (AUTO) 0.3 % (0.0-2.0); EOSINOPHILS % (AUTO) 0.3 % (0.0-4.0); HEMATOCRIT 26.1 % (36-48); HEMOGLOBIN 8.8 g/dL (12.0-16.0); LYMPHOCYTES # (AUTO) 0.3 K/uL (2.5-16.5); LYMPHOCYTES % (AUTO) 2.5 % (20.5-51.1); MEAN CORPUSCULAR HEMOGLOBIN 29 pg (27-31); MEAN CORPUSCULAR HGB CONC 34 g/dL (33-37); MEAN CORPUSCULAR VOLUME 86.2 fL (80-94); MONOCYTES # (AUTO) 0.9 K/uL (0.8-1.0); MONOCYTES % (AUTO) 6.3 % (1.7-9.3); NEUTROPHILS # (AUTO) 12.2 K/uL (1.8-7.7); NEUTROPHILS % (AUTO) 90.6 % (42.2-75.2); RED BLOOD CELL COUNT(AUTO) 3.03 MIL/uL (4.20-5.40); RED CELL DISTRIBUTION WIDTH 15.3 % (11.6-13.7); WHITE BLOOD COUNT (AUTO) 13.5 K/uL (4.8-10.8)
[2018-07-17 06:55] LABS: ANION GAP 16.3 (8-16); CARBON DIOXIDE 20.1 mmol/L (21-32); CREATININE 1.7 mg/dL (0.6-1.3); POTASSIUM 3.4 mmol/L (3.5-5.1)
[2018-07-17 06:58] LABS: MAGNESIUM 2.4 mg/dL (1.8-2.4); PHOSPHORUS 3.8 mg/dL (2.5-4.9)
--- NOTE | 2018-07-17 07:04 | NUR ---
PT. AT THIS TIME VERY SLEEPY RT SHE STATED SHE SLEEPS IN THE DAY AND VERY AWAKE IN THE NIGHT. ABLE TO CARRY A CONVERSATION WELL. TELEMETRY MONITORING. CALL LIGHT WITH IN REACH. WILL ENDORSE TO AM RN FOR CONTINUITY OF CARE. P.O. MEDICATIONS SWALLOWED WELL WITH APPLE SAUCE.
--- NOTE | 2018-07-17 07:10 | NUR ---
RECEIVED BEDSIDE REPORT FROM CHRISTINA CAMPOS. PT STABLE, SLEEPING, BUT EASILY AROUSABLE. NO SIGNS OF DISTRESS NOTED. ON HIGH FLOW NC AT 45 L/MIN. NO REDNESS, SWELLING, OR INFLAMMATION NOTED ON IV SITE. CALL SOSA WITHIN REACH. BED IN LOWEST POSITION, BED ALARM ON. SAFETY MEASURES IN PLACE. PLAN OF CARE REVIEWED
[2018-07-17] MEDS: ALBUTEROL SULFATE/IPRATROPIU 3 ML SOL IH SCH ×3 (07:30→19:06)
[2018-07-17 08:00] VITALS: BP 129/56
[2018-07-17] MEDS: FERROUS SULFATE 325 MG TABEC PO SCH ×2 (08:00→14:28)
--- NOTE | 2018-07-17 08:30 | NUR ---
PT REPOSITIONED, LINENS AND GOWN CHANGED. PT STABLE.
[2018-07-17 08:47] LABS: PLATELET COUNT (AUTO) 463 K/uL (140-450)
[2018-07-17] MEDS: ALPRAZolam 0.5 MG TAB PO SCH ×2 (09:00→14:26)
[2018-07-17] MEDS: LACTOBACILLUS RHAMNOSUS GG 1 EACH CAP PO SCH ×2 (09:00→14:29)
[2018-07-17] MEDS: GABAPENTIN 300 MG CAP PO SCH ×3 (09:00→21:03)
[2018-07-17] MEDS: sulfaSALAzine 500 MG TAB PO SCH ×2 (09:00→14:27)
[2018-07-17] MEDS: ATORVASTATIN 20 MG TAB PO SCH ×2 (09:00→14:29)
[2018-07-17] MEDS: LOSARTAN 50 MG TAB PO SCH (09:00)
[2018-07-17] MEDS: DULoxetine 30 MG CAPDR PO SCH ×2 (09:00→14:27)
[2018-07-17] MEDS: HYDROXYCHLOROQUINE 200 MG TAB PO SCH ×2 (09:00→14:28)
[2018-07-17] MEDS: ATENOLOL 25 MG TAB PO SCH (09:00)
[2018-07-17] MEDS: amLODIPine 5 MG TAB PO SCH (09:00)
[2018-07-17] MEDS: HYDROCHLOROTHIAZIDE 25 MG TAB PO SCH (09:00)
[2018-07-17] MEDS: ASCORBIC ACID 500 MG TAB PO SCH ×2 (09:00→14:28)
[2018-07-17] MEDS: VIT-B COMP/VIT-C/FOLIC ACID 1 TAB PO SCH ×2 (09:00→16:58)
[2018-07-17] MEDS: CHOLESTYRAMINE 4 GM/9 GM PKT PO SCH ×2 (09:00→14:27)
[2018-07-17] MEDS: traMADol 50 MG TAB PO SCH ×2 (09:00→14:28)
[2018-07-17] MEDS: MEROPENEM 1,000 MG in NACL 0.9% 100 ML IV SCH ×2 (09:58→21:03)
--- NOTE | 2018-07-17 10:00 | NUR ---
PT IS VERY LETHARGIC AGAIN, UNABLE TO STAY AWAKE FOR MORE THAN 5 SECONDS. ALL SCHEDULED PO MEDICATIONS HELD, ADMINISTERED SCHEDULED MERREM THROUGH IVPB. PT TOLERATED WELL. WILL CONTINUE TO MONITOR.
--- NOTE | 2018-07-17 10:35 | NUR ---
Legal Specialist Note: Per , she spoke and discussed the recommendation of transferring patient to [facility] with Rifle Case Repairer () from [facility] and Rifle Case Repairer told Dr.Rhea Castro cannot approve [facility] evaluation at this time. told me patient cannot return to [facility] at this time.
[2018-07-17] MEDS ORDERED: POTASSIUM CHLORIDE 10 MEQ TABER PO SCH (11:15)
[2018-07-17 12:00] VITALS: BP 145/50
--- NOTE | 2018-07-17 12:05 | NUR ---
VITAL SIGNS TAKEN, PT STABLE. PT IS STILL SLEEPING. PER DR ABDI, HOLD ALL PO MEDS UNTIL PT IS FULLY AWAKE. WILL CONTINUE TO MONITOR.
--- NOTE | 2018-07-17 13:23 | NUR ---
FIO2 ON HIGH FLOW TITRATED TO 35%. PT STATES SHE IS NOT SOB. SPO2 REMAINS 98%.
--- NOTE | 2018-07-17 13:52 | NUR ---
PT PLACED ON 3L OXYMIZER NOT SOB AND NOT IN RESPIRATORY DISTRESS. WILL CONTINUE TO MONITOR. NURSE AWARE.
--- NOTE | 2018-07-17 14:34 | NUR ---
PT MORE AWAKE NOW AND ABLE TO SWALLOW PO MEDICATIONS. ADMINISTERED ALL SCHEDULED 0800 AND 0900 PO MEDICATIONS, ADMINISTERED SCHEDULED K-DUR AND SOLU MEDROL, PT TOLERATED WELL. BP RECHECKED, 130/50. HELD 0900 SCHEDULED BP MEDS ATENOLOL, LOSARTAN, NORVASC, AND ORETIC PER PARAMETERS. WILL CONTINUE TO MONITOR PT. Addendum: 07/17/18 at 1703 by Tanner Robles RN ADMINISTERED 0900 SCHEDULED PO NEPHRO-RACHEL. PT TOLERATED WELL.
[2018-07-17 16:00] VITALS: BP 128/53
--- NOTE | 2018-07-17 16:30 | NUR ---
VITAL SIGNS TAKEN, PT STABLE. NO OTHER NEEDS AT THIS TIME.
[2018-07-17] MEDS: HYDROcodone/APAP 7.5/325 MG 1 TAB PO PRN (16:58)
--- NOTE | 2018-07-17 17:04 | NUR ---
ADMINISTERED PRN NORCO FOR 8/10 LEFT ARM PAIN. PT TOLERATED WELL. WILL CONTINUE TO MONITOR.
--- NOTE | 2018-07-17 17:24 | NUR ---
OXYMIZER TITRATED TO 2L. PT NOT IN ANY DISTRESS OR SOB. WILL CONTINUE TO MONITOR. NURSE MADE AWARE.
--- NOTE | 2018-07-17 18:30 | NUR ---
PT STABLE, WATCHING T.V. DENIES PAIN OR SOB.
--- NOTE | 2018-07-17 19:15 | NUR ---
ENDORSED PT TO RN BETH FOR CONTINUITY OF CARE. PT STABLE.
--- NOTE | 2018-07-17 19:26 | NUR ---
RECEIVED FROM AM RN IN BED AWAKE AND ALERT. PT. ABLE TO VERBALIZE SIMPLE NEEDS WELL IN [place] AND [place]. ABLE TO CARRY A CONVERSATION WELL AT THIS TIME. RESPIRATORY THERAPIST IN HERE TO GIVE BREATHING TREATMENT. ON /OXYMIZER AT 2LPM/NC WITH 02 SAT OF 99%. IVF SITE INTACT. HEPLOCKED. TELEMETRY MONITORING.
[2018-07-17 19:53] VITALS: BP 127/49
[2018-07-17] MEDS: NACL 0.9% 1,000 ML IV SCH (20:16)
[2018-07-17] MEDS: MIRTAZAPINE 15 MG TAB PO SCH (21:03)
--- NOTE | 2018-07-17 21:12 | NUR ---
PT. SON JUST LEFT . NO COMPLAINTS DONE. PT. IN SITTING POSITION IN BED AWAKE AND ALERT. CARRIES CONVERSATION WELL. ABLE TO VERBALIZE WELL IN DANISH AND UKRAINIAN. A/O X4. MORBIDLY OBESE FEMALE. ISOLATION PRECAUTION OBSERVED PER PROTOCOL. TELEMETRY MONITORING. ALL P.O. MEDICATIONS ABLE TO SWALLOW WELL. NO S/S OF ASPIRATION. CALL LIGHT WITH IN REACH WATCHING TV AT THIS TIME. VERY AWAKE. STATED SHE IS VERY VERY AWAKE AT THIS TIME. PREFERS TO SLEEP IN THE DAY TIME PER PT. ON 02 AT 2 LPM OXYMIZER AT 97 % RT KEEPS TALKING. USUALLY RANGING FROM 100 % TO 96 % WITH 2LPM OF 02. CALL LIGHT WITH IN REACH. GOOD BLOOD RETURN NOTED WITH IVF SITE TO RIGHT AC.
[2018-07-17 23:39] VITALS: BP 145/56
--- NOTE | 2018-07-17 23:41 | NUR ---
PT. TURNED TO SIDES AND CLEANED RT SHE STATED SHE WAS WET WITH URINE. ABLE TO VERBALIZE NEEDS WELL. PILLOW SUPPORT TO PRESSURE AREAS. ENCOURAGED TO STAY IN TURNED SIDE. NO PAIN COMPLAINTS DONE AT THIS TIME. CALL LIGHT WITH IN REACH.
--- NOTE | 2018-07-18 02:02 | NUR ---
PT. SLEEPING. 02 SAT 99 %. CALL LIGHT WITH IN REACH.
[2018-07-18 04:27] VITALS: BP 132/55
--- NOTE | 2018-07-18 04:34 | NUR ---
PT. SLEEPING WELL AT THIS TIME. WAKES UP WHEN TOUCHED AND SLEEPS BACK EASILY. NO COMPLAINTS DONE. 02 SAT AT 99 % WITH 02 AT 2LPM. AFEBRILE. ON CARDIAC TELEMETRY MONITORING.
[2018-07-18] MEDS: methylPREDNISolone SS 125 MG/2 ML VIAL IVP SCH ×3 (05:00→21:08)
[2018-07-18] MEDS: PANTOPRAZOLE 40 MG TABEC PO SCH (06:30)
[2018-07-18] MEDS: LEVOTHYROXINE 0.025 MG TAB PO SCH (06:30)
[2018-07-18] MEDS: ALBUTEROL SULFATE/IPRATROPIU 3 ML SOL IH SCH ×3 (07:25→20:34)
[2018-07-18 08:00] VITALS: BP 129/57
[2018-07-18 08:11] LABS: ANION GAP 16.7 (8-16); CARBON DIOXIDE 20.2 mmol/L (21-32); CREATININE 1.6 mg/dL (0.6-1.3); POTASSIUM 3.9 mmol/L (3.5-5.1)
[2018-07-18 08:14] LABS: BASOPHILS % (AUTO) 0.2 % (0.0-2.0); EOSINOPHILS % (AUTO) 0.1 % (0.0-4.0); HEMATOCRIT 26.7 % (36-48); HEMOGLOBIN 8.9 g/dL (12.0-16.0); LYMPHOCYTES # (AUTO) 0.6 K/uL (2.5-16.5); LYMPHOCYTES % (AUTO) 4.3 % (20.5-51.1); MEAN CORPUSCULAR HEMOGLOBIN 29 pg (27-31); MEAN CORPUSCULAR HGB CONC 33 g/dL (33-37); MEAN CORPUSCULAR VOLUME 86.6 fL (80-94); MONOCYTES % (AUTO) 7.2 % (1.7-9.3); NEUTROPHILS # (AUTO) 12.4 K/uL (1.8-7.7); NEUTROPHILS % (AUTO) 88.2 % (42.2-75.2); RED BLOOD CELL COUNT(AUTO) 3.08 MIL/uL (4.20-5.40); RED CELL DISTRIBUTION WIDTH 15.7 % (11.6-13.7); WHITE BLOOD COUNT (AUTO) 14.1 K/uL (4.8-10.8)
[2018-07-18 08:25] LABS: MAGNESIUM 2.5 mg/dL (1.8-2.4); PHOSPHORUS 3.9 mg/dL (2.5-4.9)
[2018-07-18 08:29] LABS: PLATELET COUNT (AUTO) 479 K/uL (140-450)
[2018-07-18] MEDS: amLODIPine 5 MG TAB PO SCH (09:00)
[2018-07-18] MEDS: HYDROCHLOROTHIAZIDE 25 MG TAB PO SCH (09:00)
[2018-07-18] MEDS: LOSARTAN 50 MG TAB PO SCH (09:00)
[2018-07-18] MEDS: ATENOLOL 25 MG TAB PO SCH (09:00)
--- NOTE | 2018-07-18 09:10 | NUR ---
PT IS STILL SLEEPY AT THIS TIME. HELD SCHEDULED 0800 AND 0900 MEDICATIONS UNTIL PT IS FULLY AWAKE. WILL CONTINUE TO MONITOR.
[2018-07-18] MEDS: MEROPENEM 1,000 MG in NACL 0.9% 100 ML IV SCH ×2 (10:50→21:08)
[2018-07-18] MEDS: LACTOBACILLUS RHAMNOSUS GG 1 EACH CAP PO SCH (10:57)
[2018-07-18] MEDS: FERROUS SULFATE 325 MG TABEC PO SCH (10:57)
--- NOTE | 2018-07-18 10:57 | NUR ---
PT MORE ALERT NOW, COMMUNICATING PROPERLY. HELD ALL SCHEDULED BP MEDICATIONS PER PARAMETERS, BP TAKEN 128/54. ADMINISTERED ALL OTHER SCHEDULED MEDICATIONS PER MD ORDER. PT TOLERATED WELL. WILL CONTINUE TO MONITOR.
[2018-07-18] MEDS: DULoxetine 30 MG CAPDR PO SCH (10:58)
[2018-07-18] MEDS: traMADol 50 MG TAB PO SCH (10:58)
[2018-07-18] MEDS: CHOLESTYRAMINE 4 GM/9 GM PKT PO SCH (10:58)
[2018-07-18] MEDS: HYDROXYCHLOROQUINE 200 MG TAB PO SCH (10:59)
[2018-07-18] MEDS: ATORVASTATIN 20 MG TAB PO SCH (10:59)
[2018-07-18] MEDS: ASCORBIC ACID 500 MG TAB PO SCH (10:59)
[2018-07-18] MEDS: GABAPENTIN 300 MG CAP PO SCH ×2 (10:59→21:07)
[2018-07-18] MEDS: VIT-B COMP/VIT-C/FOLIC ACID 1 TAB PO SCH (10:59)
[2018-07-18] MEDS: ALPRAZolam 0.5 MG TAB PO SCH (11:00)
[2018-07-18] MEDS: sulfaSALAzine 500 MG TAB PO SCH (11:00)
[2018-07-18 12:00] VITALS: BP 144/65
--- NOTE | 2018-07-18 12:00 | NUR ---
CALLED PT'S NEXT OF KIN SACHIN, NOTIFIED HIM OF THE DISCHARGE TO SNF. SACHIN STATED THEY DO NOT WANT PT TO GO BACK [place] [facility]. SACHIN IS AWARE THAT THERE IS NO APPROVAL FOR [facility] AT THIS TIME. TOLD SACHIN ABOUT [place] [facility] [place]. SACHIN STATED THEY ARE OKAY WITH [place] BECAUSE THEY HAVE DEALT WITH THEM BEFORE. CONTACTED [facility] ([phone]), SPOKE WITH FRANCISCO, STATED THEIR [employer] BU[employer]DER TELEVISION MAINTENANCE MAN WILL CALL BACK IN 30 MINS FOR AUTHORIZATION. REFERENCE# FOR THIS CALL: [id number]
--- NOTE | 2018-07-18 12:30 | NUR ---
VITAL SIGNS TAKEN, PT STABLE. NO SIGNS OF DISTRESS NOTED.
--- NOTE | 2018-07-18 13:37 | NUR ---
ADMINISTERED SCHEDULED MEDICATION, PT TOLERATED WELL. NO OTHER NEEDS AT THIS TIME.
[2018-07-18] MEDS ORDERED: MIRT15TA4 PO (15:05)
--- NOTE | 2018-07-18 15:15 | NUR ---
JOSE ELIAS, [place] [facility] [place], STATED SHE WILL GIVE ME A CALL SOON THEY ARE DONE REVIEWING PT'S INFO AND INSURANCE.
--- NOTE | 2018-07-18 15:16 | NUR ---
@1230: JAYDON ON-CALL CM FROM [facility] CALLED BACK, STATED PT 'S INSURANCE IS ONLY CONTRACTED [place] [facility] BUT PT CAN STILL CHOOSE ANOTHER FACILITY IF SHE REFUSED TO GO BACK TO [facility]. JAYDON STATED SHE IS ALLOWING ME TO SUBMITTED PT'S FACE SHEET AND CLINICALS TO [facility] AND TO CALL HER BACK WHOEVER ACCEPTS THE PT. @1300: PT'S FACE SHEET AND CLINICALS FAXED TO [facility], ATTENTION TO ADMISSION INTAKE MADHURI, CONFIRMATION ATTACHED TO PT'S CHART. @1315: PT'S FACE SHEET AND CLINICALS FAXED TO [facility], ATTENTION TO ADMISSION INTAKE JOSE ELIAS, CONFIRMATION ATTACHED TO PT'S CHART.
--- NOTE | 2018-07-18 15:30 | NUR ---
VITAL SIGNS TAKEN, PT STABLE. NO OTHER NEEDS AT THIS TIME. FAMILY AT THE BEDSIDE.
--- NOTE | 2018-07-18 15:31 | NUR ---
JOSE ELAIS FROM [facility] CALLED BACK AND ASKED FOR [facility] [employer] [employer] [facility] JAYDON PHONE # ([phone]). JOSE ELIAS STATED SHE WILL GIVE ME A CALL BACK IF THEY ACCEPT PT.
--- NOTE | 2018-07-18 15:55 | NUR ---
MADE A FOLLOW UP CALL TO MADHURI ADMISSION INTAKE AT [facility] (#[phone]), VOICE MESSAGE LEFT. AWAITING FOR CALL BACK.
--- NOTE | 2018-07-18 15:58 | NUR ---
JOSE ELIAS FROM [facility] [place] [place] CALLED BACK, STATED SHE SPOKE WITH JAYDON FROM [facility]. JOSE ELIAS SAID PT'S INSURANCE IS NOT CONTRACTED WITH THEM. RESIDENT DR. RATLIFF MADE AWARE
[2018-07-18 16:00] VITALS: BP 138/69
[2018-07-18] MEDS: NACL 0.9% 1,000 ML IV SCH (16:16)
--- NOTE | 2018-07-18 17:38 | NUR ---
PT REPOSITIONED, LINENS AND GOWN CHANGED. PT STABLE.
--- NOTE | 2018-07-18 18:15 | NUR ---
SPOKE WITH FAMILY AT THE BEDSIDE REGARDING PT'S PLAN OF CARE.
--- NOTE | 2018-07-18 19:25 | NUR ---
ENDORSED PT TO RN ANSELMO FOR CONTINUITY OF CARE. PT STABLE.
--- NOTE | 2018-07-18 19:35 | NUR ---
Received endorsement from AM shift RN; patient is A/Ox3, able to make needs known, bedbound. Introduced self, updated board. No SOB or distress noted; on O2 2LPM via Oxymizer. IV site right antecubital, 20 gauge, intact, running IVF at 50mL/hr. Skin intact. Bed in the lowest position, call light within reach. Initial assessment done. Will continue to monitor.
[2018-07-18 20:00] VITALS: BP 121/67
--- NOTE | 2018-07-18 20:45 | NUR ---
Vital taken, no distress noted. Due meds given, tolerated well.
[2018-07-18] MEDS: MIRTAZAPINE 15 MG TAB PO SCH (21:07)
--- NOTE | 2018-07-18 22:40 | NUR ---
Checks made; patient watching TV, no distress noted.
[2018-07-19] VITALS: BP 120/64
--- NOTE | 2018-07-19 00:30 | NUR ---
Vitals taken, no distress noted.
--- NOTE | 2018-07-19 02:45 | NUR ---
Frequent checks made; patient asleep, visible chest rise and fall noted.
[2018-07-19 04:00] VITALS: BP 144/56
--- NOTE | 2018-07-19 04:30 | NUR ---
Vitals taken, patient asleep, eyes closed, visible chest rise and fall noted.
[2018-07-19] MEDS: PANTOPRAZOLE 40 MG TABEC PO SCH (05:34)
[2018-07-19] MEDS: methylPREDNISolone SS 125 MG/2 ML VIAL IVP SCH ×3 (05:34→20:08)
[2018-07-19] MEDS: LEVOTHYROXINE 0.025 MG TAB PO SCH (05:35)
[2018-07-19] MEDS: ALBUTEROL SULFATE/IPRATROPIU 3 ML SOL IH SCH ×3 (07:03→19:29)
--- NOTE | 2018-07-19 07:25 | NUR ---
Endorsed patient to AM shift RN for continuity of care; patient in stable condition.
[2018-07-19 07:31] LABS: BASOPHILS # (AUTO) 0.1 K/uL (0.00-0.22); BASOPHILS % (AUTO) 0.5 % (0.0-2.0); EOSINOPHILS % (AUTO) 0.1 % (0.0-4.0); HEMATOCRIT 28.1 % (36-48); HEMOGLOBIN 9.2 g/dL (12.0-16.0); LYMPHOCYTES # (AUTO) 0.8 K/uL (2.5-16.5); LYMPHOCYTES % (AUTO) 4.9 % (20.5-51.1); MEAN CORPUSCULAR HEMOGLOBIN 29 pg (27-31); MEAN CORPUSCULAR HGB CONC 33 g/dL (33-37); MEAN CORPUSCULAR VOLUME 87.5 fL (80-94); MONOCYTES % (AUTO) 6.2 % (1.7-9.3); NEUTROPHILS # (AUTO) 13.6 K/uL (1.8-7.7); NEUTROPHILS % (AUTO) 88.3 % (42.2-75.2); PLATELET COUNT (AUTO) 434 K/uL (140-450); RED BLOOD CELL COUNT(AUTO) 3.22 MIL/uL (4.20-5.40); RED CELL DISTRIBUTION WIDTH 15.8 % (11.6-13.7); WHITE BLOOD COUNT (AUTO) 15.4 K/uL (4.8-10.8)
[2018-07-19 07:45] LABS: ANION GAP 15.2 (8-16); CARBON DIOXIDE 21.2 mmol/L (21-32); CREATININE 1.3 mg/dL (0.6-1.3); POTASSIUM 4.4 mmol/L (3.5-5.1)
--- NOTE | 2018-07-19 07:50 | NUR ---
PATIENT WAS SLEEPING COMFORTABLY, EASILY AROUSABLE BY NAME. RESPIRATION EVEN, UNLABOR ON 2L OXIMIZER. SKIN DRY AND WARM. IV PATENT AND INTACT. DENIED PAIN AT THIS TIME. PLAN OF CARE WAS DISCUSSED WITH PATIENT. BED AT LOW POSITION, SIDE RAILS UP. CALL LIGHT WITHIN REACH
[2018-07-19 07:58] LABS: MAGNESIUM 2.5 mg/dL (1.8-2.4)
[2018-07-19 08:00] VITALS: BP 126/63
[2018-07-19] MEDS: ATENOLOL 25 MG TAB PO SCH (09:02)
[2018-07-19] MEDS: ATORVASTATIN 20 MG TAB PO SCH (09:02)
[2018-07-19] MEDS: GABAPENTIN 300 MG CAP PO SCH ×2 (09:02→20:08)
[2018-07-19] MEDS: LACTOBACILLUS RHAMNOSUS GG 1 EACH CAP PO SCH (09:02)
[2018-07-19] MEDS: HYDROXYCHLOROQUINE 200 MG TAB PO SCH (09:02)
[2018-07-19] MEDS: traMADol 50 MG TAB PO SCH (09:03)
[2018-07-19] MEDS: ASCORBIC ACID 500 MG TAB PO SCH (09:03)
[2018-07-19] MEDS: VIT-B COMP/VIT-C/FOLIC ACID 1 TAB PO SCH (09:03)
[2018-07-19] MEDS: HYDROCHLOROTHIAZIDE 25 MG TAB PO SCH (09:03)
[2018-07-19] MEDS: DULoxetine 30 MG CAPDR PO SCH (09:03)
[2018-07-19] MEDS: LOSARTAN 50 MG TAB PO SCH (09:04)
[2018-07-19] MEDS: ALPRAZolam 0.5 MG TAB PO SCH (09:04)
[2018-07-19] MEDS: amLODIPine 5 MG TAB PO SCH (09:04)
[2018-07-19] MEDS: sulfaSALAzine 500 MG TAB PO SCH (09:05)
[2018-07-19] MEDS: FERROUS SULFATE 325 MG TABEC PO SCH (09:05)
[2018-07-19] MEDS: CHOLESTYRAMINE 4 GM/9 GM PKT PO SCH (09:05)
[2018-07-19] MEDS: MEROPENEM 1,000 MG in NACL 0.9% 100 ML IV SCH ×2 (09:20→20:09)
--- NOTE | 2018-07-19 09:47 | NUR ---
CALLED [facility] AND SPOKE TO RUSLAN, SHE SAID SHE WILL CALL JAYDON TO FOLLOW UP THIS CALL, SHE GAVE REFERENCE NUMBER FOR THE CALL #[phone]. WILL BE WAITING FOR THE RETURN CALL.
--- NOTE | 2018-07-19 10:00 | NUR ---
PATIENT WAS AWAKE, ALERT. MEDS WERE GIVEN PER ORDER. PATIENT WAS REPOSITIONED AND PERINEAL CARE WAS GIVEN. NO DISTRESS NOTED
--- NOTE | 2018-07-19 10:56 | NUR ---
JAYDON FROM [facility] CALLED BACK AND GAVE THE LIST FOR CONTRACTED FACILITY.
--- NOTE | 2018-07-19 11:18 | NUR ---
JAYDON SAID SHE WILL CALL ME LATER FOR THE LIST OF POSSIBLE SNF .
--- NOTE | 2018-07-19 11:35 | NUR ---
07/19/18 RD FOLLOW UP COMPLETED PLEASE REFER TO NUTRITION PROGRESS NOTE UNDER CARE ACTIVITY FOR ESTIMATED NUTRITION NEEDS. RD RECOMMENDATIONS: 1. CONTINUE ON SOFT DIET TOLERATED. 2. PT WAS PREVIOUSLY EDUCATED ON MEDITERREAN DIET; GOOD ACCEPTANCE. 3. RD TO FOLLOW-UP 3-5 DAYS, MODERATE RISK LAURA SMITH MS, RDN
[2018-07-19 12:00] VITALS: BP 126/63
--- NOTE | 2018-07-19 12:15 | NUR ---
JAYDON FROM [facility] CALLED BACK, SHE SAID THAT PATIENT NEEDS PIERO TO GET PLACEMENT AND SINCE IT"S WEEKEND SHE CANNOT DO IT. NEEDS TO FOLLOW UP TMW, WILL ENDORSE TO THE CHARGE NURSE.
[2018-07-19] MEDS: NACL 0.9% 1,000 ML IV SCH (12:16)
--- NOTE | 2018-07-19 12:30 | NUR ---
PATIENT WAS AWAKE, ALERT. RESPIRATION EVEN, UNLABOR ON 2L OXIMIZER. DENIED PAIN, SOB AT THIS TIME. COLACE AND PRUNE JUICE WERE GIVEN SINCE LBM WAS 4 DAYS AGO PER PATIENT. NO DISTRESS NOTED AT THIS TIME
--- NOTE | 2018-07-19 14:24 | NUR ---
PATIENT WAS AWAKE, ALERT. RESPIRATION EVEN, UNLABOR ON 2L OXIMIZER. NO DISTRESS NOTED AT THIS TIME. PATIENT WAS REPOSITIONED.
[2018-07-19] MEDS ORDERED: BISACODYL 5 MG TABEC PO SCH (14:36)
[2018-07-19 16:00] VITALS: BP 126/50
--- NOTE | 2018-07-19 16:00 | NUR ---
PATIENT WAS RESTING COMFORTABLY. RESPIRATION EVEN, UNLABOR ON ROOM AIR. DENIED PAIN, SOB AT THIS TIME. NO DISTRESS NOTED. CALL LIGHT WITHIN REACH
[2018-07-19] MEDS: HYDROcodone/APAP 7.5/325 MG 1 TAB PO PRN (17:54)
--- NOTE | 2018-07-19 18:09 | NUR ---
PATIENT WAS AWAKE, ALERT, EATING DINNER COMFORTABLY. RESPIRATION EVEN, UNLABOR ON 2L OXIMIZER. COMPLAINED OF PAIN 6/10 ABDOMEN, MED WAS GIVEN PER ORDER. IV PATENT AND INTACT. NO DISTRESS NOTED AT THIS TIME
--- NOTE | 2018-07-19 19:12 | NUR ---
ENDORSEMENT GIVEN TO ELIGIBILITY TECHNICIAN NURSE. PATIENT IS STABLE AT THIS TIME
--- NOTE | 2018-07-19 19:14 | NUR ---
REPORT RECEIVED FROM AM NURSE. PT IN BED, AWAKE, ALERT AND ORIENTED X4. PT ABLE TO VERBALIZE NEEDS. RIGHT HAND 24G INTACT AND INFUSING WELL. SAFETY MEASURES IN PLACE. YELLOW GOWN, BED ALARM ON. CALL LIGHT WITHIN REACH. WILL CONTINUE TO MONITOR.
[2018-07-19 20:03] VITALS: BP 142/97
[2018-07-19] MEDS: MIRTAZAPINE 15 MG TAB PO SCH (20:08)
--- NOTE | 2018-07-19 20:15 | NUR ---
PT CHANGED AND CLEANED. PT REPOSITIONED FOR COMFORT.
--- NOTE | 2018-07-19 22:29 | NUR ---
ROUNDED ON PT. PT IN BED WATCHING TV. NO C/O DISCOMFORT. ALL NEEDS ATTENDED TO. WILL CONTINUE TO MONITOR.
[2018-07-20 00:50] VITALS: BP 137/54
--- NOTE | 2018-07-20 00:50 | NUR ---
VITALS TAKEN. PT AWAKE WATCHING TV. PT C/O PAIN IN ABD. ALL NEEDS ATTENDED TO. SAFETY MEASURES IN PLACE. WILL CONTINUE TO MONITOR.
[2018-07-20] MEDS: HYDROcodone/APAP 7.5/325 MG 1 TAB PO PRN ×2 (01:06→12:59)
--- NOTE | 2018-07-20 02:05 | NUR ---
ROUNDED ON PT. PT SLEEPING IN BED, BREATHING EQUAL AND UNLABORED. SAFETY MEASURES IN PLACE. CALL LIGHT WITHIN REACH. WILL CONTINUE TO MONITOR.
[2018-07-20 04:00] VITALS: BP 128/54
--- NOTE | 2018-07-20 04:05 | NUR ---
VITAL SIGNS TAKEN. PT SLEEPING BUT EASILY AROUSED BY NAME. ALL NEEDS ATTENDED TO. SAFETY MEASURES IN PLACE. CALL LIGHT WITHIN REACH. WILL CONTINUE TO MONITOR.
[2018-07-20] MEDS: methylPREDNISolone SS 125 MG/2 ML VIAL IVP SCH ×2 (04:36→12:06)
[2018-07-20] MEDS: PANTOPRAZOLE 40 MG TABEC PO SCH (06:04)
[2018-07-20] MEDS: LEVOTHYROXINE 0.025 MG TAB PO SCH (06:04)
--- NOTE | 2018-07-20 07:05 | NUR ---
ENDORSED TO AM NURSE, PT IN STABLE CONDITION.
--- NOTE | 2018-07-20 07:10 | NUR ---
RECEIVED PT FROM SALES SERVICE PROFESSIONAL NURSE, PT IS AWAKE AND LYING ON THE BED WITH CALL LIGHT WITHIN REACH, FALL PRECAUTION INITIATED, PT HAS AN IV LINE ON THE RT HAND G. 24, WITH NS INFUSING AT 50ML/HR, INTACT, PT IS ON CONTACT ISOLATION FOR MDRO AND ESBL OF URINE, PRECAUTION ENFORV Addendum: 07/20/18 at 1249 by Haleigh Alatorre RN RECEIVED PT FROM SALES SERVICE PROFESSIONAL NURSE, PT IS AWAKE AND LYING ON THE BED WITH CALL LIGHT WITHIN REACH, FALL PRECAUTION INITIATED, PT HAS AN IV LINE ON THE RT HAND G. 24, WITH NS INFUSING AT 50ML/HR, INTACT, PT IS ON CONTACT ISOLATION FOR MDRO AND ESBL OF URINE, PRECAUTION ENFORCED. O2 AT 2L VIA OXYMIZER IN PLACE. PT VERBALIZED A PAIN RATE OF 6/10, WILL MEDICATE, NO OTHER UNTOWARD SYMPTOM NOTED AND WILL CONTINUE TO MONITOR PT.
[2018-07-20] MEDS: ALBUTEROL SULFATE/IPRATROPIU 3 ML SOL IH SCH ×2 (07:16→14:10)
--- NOTE | 2018-07-20 07:50 | NUR ---
PT IS AWAKE AND LYING ON THE BED, VITAL SIGNS TAKEN AND BP IS 134/59, PULSE IS 58, O2 SATURATION IS 100%, RESPIRATION IS 20/MIN, TEMPERATURE IS 99, NO SIGN OF DISTRESS NOTED AND WILL MONITOR PT.
[2018-07-20 08:00] VITALS: BP 134/59
[2018-07-20] MEDS: NACL 0.9% 1,000 ML IV SCH (08:16)
[2018-07-20] MEDS: CHOLESTYRAMINE 4 GM/9 GM PKT PO SCH (08:25)
[2018-07-20] MEDS: sulfaSALAzine 500 MG TAB PO SCH (08:25)
[2018-07-20] MEDS: ATORVASTATIN 20 MG TAB PO SCH (08:26)
[2018-07-20] MEDS: DULoxetine 30 MG CAPDR PO SCH (08:26)
[2018-07-20] MEDS: HYDROXYCHLOROQUINE 200 MG TAB PO SCH (08:26)
[2018-07-20] MEDS: LOSARTAN 50 MG TAB PO SCH (08:27)
[2018-07-20] MEDS: ASCORBIC ACID 500 MG TAB PO SCH (08:27)
[2018-07-20] MEDS: amLODIPine 5 MG TAB PO SCH (08:27)
[2018-07-20] MEDS: traMADol 50 MG TAB PO SCH (08:28)
[2018-07-20] MEDS: FERROUS SULFATE 325 MG TABEC PO SCH (08:28)
[2018-07-20] MEDS: LACTOBACILLUS RHAMNOSUS GG 1 EACH CAP PO SCH (08:28)
[2018-07-20] MEDS: ATENOLOL 25 MG TAB PO SCH (08:28)
[2018-07-20] MEDS: GABAPENTIN 300 MG CAP PO SCH (08:29)
[2018-07-20] MEDS: VIT-B COMP/VIT-C/FOLIC ACID 1 TAB PO SCH (08:29)
[2018-07-20] MEDS: HYDROCHLOROTHIAZIDE 25 MG TAB PO SCH (08:29)
[2018-07-20] MEDS: MEROPENEM 1,000 MG in NACL 0.9% 100 ML IV SCH (08:35)
[2018-07-20] MEDS: ALPRAZolam 0.5 MG TAB PO SCH (08:39)
--- NOTE | 2018-07-20 08:46 | NUR ---
PT IS AWAKE AND VITAL SIGNS CHECKED, BP IS 155/57, TEMPERATURE IS 99.3, PULSE IS 65, O2 SATURATION IS 100%, RESPIRATION IS 20/MIN, ORAL MEDICATIONS WERE GIVEN AND PT TOLERATED . NO SIGN OF DISTRESS NOTED, AND WILL CONTINUE TO BE MONITORED
[2018-07-20 09:16] LABS: BASOPHILS % (AUTO) 0.2 % (0.0-2.0); EOSINOPHILS # (AUTO) 0.2 K/uL (0-0.4); EOSINOPHILS % (AUTO) 1.1 % (0.0-4.0); HEMATOCRIT 31.7 % (36-48); LYMPHOCYTES # (AUTO) 0.8 K/uL (2.5-16.5); LYMPHOCYTES % (AUTO) 5.3 % (20.5-51.1); MEAN CORPUSCULAR HEMOGLOBIN 28 pg (27-31); MEAN CORPUSCULAR HGB CONC 32 g/dL (33-37); MEAN CORPUSCULAR VOLUME 88.7 fL (80-94); MONOCYTES # (AUTO) 0.7 K/uL (0.8-1.0); MONOCYTES % (AUTO) 4.6 % (1.7-9.3); NEUTROPHILS # (AUTO) 13.2 K/uL (1.8-7.7); NEUTROPHILS % (AUTO) 88.8 % (42.2-75.2); PLATELET COUNT (AUTO) 432 K/uL (140-450); RED BLOOD CELL COUNT(AUTO) 3.57 MIL/uL (4.20-5.40); RED CELL DISTRIBUTION WIDTH 16.1 % (11.6-13.7); WHITE BLOOD COUNT (AUTO) 14.8 K/uL (4.8-10.8)
[2018-07-20 09:27] LABS: ANION GAP 15.6 (8-16); CARBON DIOXIDE 20.5 mmol/L (21-32); CREATININE 1.3 mg/dL (0.6-1.3); POTASSIUM 5.1 mmol/L (3.5-5.1)
[2018-07-20 09:44] LABS: MAGNESIUM 2.3 mg/dL (1.8-2.4); PHOSPHORUS 4.7 mg/dL (2.5-4.9)
[2018-07-20] MEDS ORDERED: LACT10CA1 PO (10:43)
[2018-07-20] MEDS ORDERED: MER1I IV (10:43)
[2018-07-20] MEDS ORDERED: METH4TAB3 PO (10:51)
--- NOTE | 2018-07-20 10:59 | NUR ---
CALLED [facility] SPOKE WITH CARMINE REGARDING PATIENT AND FAMILY DOES NOT WANT TO GO BACK TO [facility]. PER CARMINE WILL TRY OTHER CONTRACTED FACILITY SPOKE WITH LIZY FROM [facility] , SINCE THEY ARE CONTRACTED WITH [facility] WILL TRY TO GET THE AUTH AND WILL CALL BACK .
--- NOTE | 2018-07-20 11:52 | NUR ---
I RECEIVE A CALL FROM JOSE ELIAS DOOLEY PATIENT CAN GO TO ROOM 100B ISOLATION BED FOR MDRO OF THE URINE ,ACCEPTING DR WILL BE DR RIGGS # TO GIVE REPORT [phone] ,SPOKE WITH CARMINE FROM [facility] FOR TRANSPORT CONTRACTED WITH [facility] AUTH # [id number] . TECHNICAL COMMUNICATION TEACHER TIME WILL BE 2PM
[2018-07-20 12:00] VITALS: BP 155/57
--- NOTE | 2018-07-20 13:18 | NUR ---
CALLED [facility] AT [phone] AND GAVE REPORT TO AURELIA VASQUEZ REGARDING THE PT. INFORMED CHRISTINA MOSES THAT PT WILL BE PLACE IN RM 100-B, UNDER THE SERVICE OF DR. RIGGS AND THAT PT WILL BE CONTINUED WITH IV MEROPENEM 1000MG, BID FOR 4 MORE DAYS AND FOR PT, PT WILL BE TRANSPORTED BY [facility] AND QC MANAGER TIME WILL BE AT 1400 AND CHRISTINA MOSES ACKNOWLEDGED AND VERBALIZED UNDERSTANDING.
--- NOTE | 2018-07-20 13:31 | NUR ---
PT'S SON, SACHIN SEARS WAS CALLED AT [phone] AND INFORMED THAT PT WILL BE TRANSFERRED TO [facility] FOR AN IV CONTINUATION AND PT, AND VERBALIZED UNDERSTANDING.
--- NOTE | 2018-07-20 13:31 | NUR ---
PT BEING CLEANED AT THIS TIME. WILL RETURN FOR ADMINISTRATION OF BREATHING TX.
--- NOTE | 2018-07-20 14:00 | NUR ---
DISCHARGED TEACHINGS AND INSTRUCTIONS WERE GIVEN TO PT AND PT WAS INFORMED THAT SHE WILL BE TRANSFERRED TO [facility] FOR PT AND CONTINUATION IF IV ANTIBIOTICS FOR 4 MORE DAYS AND WAS INFORMED ALSO THAT SON, SACHIN TABARES WAS INFORMED OF THE TRANSFER, AND PT VERBALIZED UNDERSTANDING.
[2018-07-20 14:25] VITALS: BP 149/59
--- NOTE | 2018-07-20 14:25 | NUR ---
DISCHARGED PT VIA GURNEY WITH [facility]SPORT PERSONNEL, PT ON O2 OXYMIZER WITH THE PERIPHERAL LINE ON THE RT HAND G. 24 KEPT ON SALINE LOCK VITAL SIGNS CHECKED AND BP IS 149/59, O2 SATURATION IS 99%, TEMPERATURE IS 98.7, RESPIRATION IS 20/MIN AND PULSE IS 62, PT IS STABLE AT THIS TIME.
== END 2018-07-20 14:25 | DRG 177 ==
LOC: MED 09:02 → MMU 11:29 → MTU 07-16 05:50
PROVIDERS: ADMIT General Practice; ATTEND General Practice
PROC: 30233N1 Transfusion of Nonautologous Red Blood Cells into Peripheral Vein, Percutaneous Approach (ICD-10-PCS; principal; 2018-07-16)
DX: J69.0 Pneumonitis due to inhalation of food and vomit (principal); N17.0 Acute kidney failure with tubular necrosis; J96.01 Acute respiratory failure with hypoxia; E43 Unspecified severe protein-calorie malnutrition; R65.11 Systemic inflammatory response syndrome (SIRS) of non-infectious origin with acute organ dysfunction; I50.43 Acute on chronic combined systolic (congestive) and diastolic (congestive) heart failure; N39.0 Urinary tract infection, site not specified; G93.40 Encephalopathy, unspecified; Z68.43 Body mass index [BMI] 50.0-59.9, adult; I13.0 Hypertensive heart and chronic kidney disease with heart failure and stage 1 through stage 4 chronic kidney disease, or unspecified chronic kidney disease; J84.9 Interstitial pulmonary disease, unspecified; E87.5 Hyperkalemia; Z16.12 Extended spectrum beta lactamase (ESBL) resistance; M19.90 Unspecified osteoarthritis, unspecified site; E03.9 Hypothyroidism, unspecified; D64.9 Anemia, unspecified; E83.39 Other disorders of phosphorus metabolism; E83.51 Hypocalcemia; E66.01 Morbid (severe) obesity due to excess calories; R31.9 Hematuria, unspecified; F41.9 Anxiety disorder, unspecified; E78.5 Hyperlipidemia, unspecified; K21.9 Gastro-esophageal reflux disease without esophagitis; G89.4 Chronic pain syndrome; M06.9 Rheumatoid arthritis, unspecified; M48.061 Spinal stenosis, lumbar region without neurogenic claudication; I27.20 Pulmonary hypertension, unspecified; B96.20 Unspecified Escherichia coli [E. coli] as the cause of diseases classified elsewhere; D47.3 Essential (hemorrhagic) thrombocythemia; E87.6 Hypokalemia; E87.8 Other disorders of electrolyte and fluid balance, not elsewhere classified; I73.9 Peripheral vascular disease, unspecified; T38.0X5A Adverse effect of glucocorticoids and synthetic analogues, initial encounter; Y92.89 Other specified places as the place of occurrence of the external cause; Z85.9 Personal history of malignant neoplasm, unspecified; Z90.710 Acquired absence of both cervix and uterus; N18.9 Chronic kidney disease, unspecified; Z85.42 Personal history of malignant neoplasm of other parts of uterus; Z90.49 Acquired absence of other specified parts of digestive tract; Z96.649 Presence of unspecified artificial hip joint
CPT/HCPCS: 36415; 36600; 51702; 70450; 71045; 71250; 80048; 80053; 81001; 82272; 82607; 82728; 82746; 82803; 82948; 83540; 83605; 83735; 83880; 84100; 84443; 84484; 85025; 85045; 85610; 85730; 86886; 86900; 86901; 86920; 87040; 87081; 87086; 87186; 93005; 93925; 93970; 93971; 94640; 94644; 96365; 96375; 97110; 97161-GP; 97530; 99291; C1758; J1940; J1956; J2185; J2270; J2543; J2930; J7030; J7613; J7620; P9016; Q0092; Q0163

== ENCOUNTER 2018-11-28 09:42 | Emergency (ER) | payer OTHER, MEDICAID ==
[~2018-11-28] VITALS: Ht 152.4 cm; Wt 74.8 kg
[~2018-11-28 09:42] MED LIST changes: +LACT10CA1 PO; +MER1I IV; +METH4TAB3 PO; +MIRT15TA4 PO; -SUL500 PO; +SULF500T6 PO
--- NOTE | 2018-11-28 09:42 | NUR ---
Patient BIBA BLS, transferred to bed 1. RN evaluating patient at bedside.
[2018-11-28 09:56] VITALS: BP 156/56
--- NOTE | 2018-11-28 09:56 | NUR ---
PT BIB SELF C/O RT SHOULDER PAIN THAT RADIATES TO HEAD X5 MONTHS S/P FALL. NO SWELLING, BRUISING, OR DEFORMITY NOTED, + CMS. VSS. ER MD TO SEE PT. MEDH:CKD, HTN, DEPRESSION, ANXIETY
[2018-11-28] MEDS ORDERED: ALBUTEROL SULFATE/IPRATROPIU 3 ML SOL IH ONE (10:15)
[2018-11-28] MEDS ORDERED: MORPHINE SULFATE 4 MG/ML SYR IVP ONE (10:15)
--- NOTE | 2018-11-28 11:27 | NUR ---
Patient transferred to bed 8 for further care. RN re-evaluating patient at bedside.
[2018-11-28] MEDS ORDERED: MORPHINE SULFATE 2 MG/ML SYR IVP ONE (12:10)
[2018-11-28] MEDS ORDERED: CYCLOBENZAPRINE 10 MG TAB PO ONE (12:10)
--- NOTE | 2018-11-28 12:46 | NUR ---
CALLED [facility] TO GIVE REPORT FOR PT TO RETURN HOME IN ABOUT 1 HOUR
[2018-11-28 13:55] VITALS: BP 127/55
--- NOTE | 2018-11-28 13:55 | NUR ---
Patient discharged with v/s stable. Written and verbal after care instructions given and explained. Patient alert, oriented and verbalized understanding of instructions. Ambulance Transport with to home. All questions addressed prior to discharge. ID band removed. Patient advised to follow up with PMD. Rx of TRAMADOL given. Patient educated on indication of medication including possible reaction and side effects. Opportunity to ask questions provided and answered.
== END 2018-11-28 13:55 ==
LOC: MED 09:42
DX: S43.101A Unspecified dislocation of right acromioclavicular joint, initial encounter (principal); I96 Gangrene, not elsewhere classified; R06.2 Wheezing; Z79.899 Other long term (current) drug therapy; Z79.891 Long term (current) use of opiate analgesic; X58.XXXA Exposure to other specified factors, initial encounter; Y93.89 Activity, other specified; Y92.89 Other specified places as the place of occurrence of the external cause; Y99.8 Other external cause status
CPT/HCPCS: 73030; 94640; 96374; 96376; 99283; J2270; J7620

== ENCOUNTER 2019-07-28 16:27 | Inpatient (IN) | payer OTHER, MEDICAID, SELFPAY ==
[~2019-07-28] VITALS: Ht 152.4 cm; Wt 83.9 kg
[~2019-07-28 16:27] MED LIST changes: -MER1I IV; +MERO1VIA13 IV; +SIMV-30 PO; -SIMV20TA6 PO
[2019-07-28 16:36] VITALS: BP 166/67
--- NOTE | 2019-07-28 16:37 | NUR ---
BIBA TAKEN TO BED 7
[2019-07-28] MEDS ORDERED: ONDANSETRON 4 MG ODT PO ONE (16:50)
[2019-07-28] MEDS ORDERED: KETOROLAC 60 MG/2 ML VIAL IM ONE (16:50)
[2019-07-28] MEDS ORDERED: METO25TA PO (17:00)
[2019-07-28] MEDS ORDERED: ATOR20TA PO (17:00)
[2019-07-28] MEDS ORDERED: PRON INH (17:00)
[2019-07-28] MEDS ORDERED: MULT1SGL58 PO (17:00)
[2019-07-28] MEDS ORDERED: SYN.05 PO (17:00)
[2019-07-28] MEDS ORDERED: HYDR-5092 PO (17:00)
[2019-07-28] MEDS ORDERED: GABA300C PO (17:00)
[2019-07-28] MEDS ORDERED: HEPA500056 SUBQ (17:00)
[2019-07-28] MEDS ORDERED: BUDE1AER IH (17:00)
[2019-07-28] MEDS ORDERED: DULO60EC PO (17:00)
[2019-07-28] MEDS ORDERED: PUL.5N INH (17:00)
[2019-07-28] MEDS ORDERED: SPIMDI INH (17:00)
[2019-07-28] MEDS ORDERED: TRAM50TA1 PO (17:00)
[2019-07-28] MEDS ORDERED: HYDR-1098 PO (17:00)
[2019-07-28] MEDS ORDERED: PANT40EC PO (17:00)
[2019-07-28] MEDS ORDERED: ATRN INH (17:02)
--- NOTE | 2019-07-28 17:10 | NUR ---
69/F DAMIEN SALDANA FROM [facility] FOR EVALUATION OF GENERALIZED WEAKNESS, RIGHT ARM SWELLING; PT ARRIVED TO ED ON 2L NASAL CANULA WHICH SHE USES AT [facility] WELL (HX COPD). PT CONNECTED TO BEDSIDE MONITOR. BEDRAILS UP X2, BED LOCKED & LOW. HX ESRD, HTN, HYPERLIPIDEMIA, GERD, ASTHMA, HYPOTHYROID, COPD
--- NOTE | 2019-07-28 17:14 | NUR ---
RT UPPER CHEST TODD CATH FOR HEMODIALYSIS
--- NOTE | 2019-07-28 17:50 | NUR ---
XRAY AT BEDSIDE
--- NOTE | 2019-07-28 18:03 | NUR ---
DR MAGALLANES AT BEDSIDE
--- NOTE | 2019-07-28 18:13 | NUR ---
PHONE COUNSELOR AT BEDSIDE FOR BLOOD DRAW
--- NOTE | 2019-07-28 18:42 | NUR ---
U/S TECH AT BEDSIDE
--- NOTE | 2019-07-28 18:45 | NUR ---
INFORMATION SYSTEMS AUDITOR AT BEDSIDE
[2019-07-28 19:04] LABS: BASOPHILS # (AUTO) 0.1 K/uL (0.00-0.22); BASOPHILS % (AUTO) 0.8 % (0.0-2.0); EOSINOPHILS # (AUTO) 0.2 K/uL (0-0.4); EOSINOPHILS % (AUTO) 2.4 % (0.0-4.0); HEMATOCRIT 24.7 % (36-48); HEMOGLOBIN 7.9 g/dL (12.0-16.0); LYMPHOCYTES # (AUTO) 0.7 K/uL (2.5-16.5); LYMPHOCYTES % (AUTO) 8.4 % (20.5-51.1); MEAN CORPUSCULAR HEMOGLOBIN 27 pg (27-31); MEAN CORPUSCULAR HGB CONC 32 g/dL (33-37); MEAN CORPUSCULAR VOLUME 85.3 fL (80-94); MONOCYTES # (AUTO) 0.5 K/uL (0.8-1.0); MONOCYTES % (AUTO) 5.5 % (1.7-9.3); NEUTROPHILS # (AUTO) 7.2 K/uL (1.8-7.7); NEUTROPHILS % (AUTO) 82.9 % (42.2-75.2); PLATELET COUNT (AUTO) 214 K/uL (140-450); RED CELL DISTRIBUTION WIDTH 17.3 % (11.6-13.7); WHITE BLOOD COUNT (AUTO) 8.7 K/uL (4.8-10.8)
[2019-07-28 19:10] LABS: BILIRUBIN,URINE NEGATIVE (NEGATIVE); BLOOD, URINE NEGATIVE (NEGATIVE); COLOR,URINE YELLOW (YELLOW); LEUKOCYTE ESTERASE ,URINE 1+ (NEGATIVE); NITRITE, URINE NEGATIVE (NEGATIVE); UGLUCOSE NEGATIVE (NEGATIVE)
[2019-07-28 19:11] LABS: APPEARANCE,URINE HAZY (CLEAR)
--- NOTE | 2019-07-28 19:16 | NUR ---
REPORT TO CHRISTINA TEJADA. TRANSFER OF CARE AT THIS TIME.
[2019-07-28 19:21] LABS: PROTHROMBIN TIME 9.9 secs (10.8-13.4)
[2019-07-28 19:23] LABS: ALBUMIN 2.6 g/dL (3.4-5.0); ANION GAP 6.9 (8-16); CARBON DIOXIDE 35.5 mmol/L (21-32); CREATININE 0.9 mg/dL (0.6-1.3); POTASSIUM 4.4 mmol/L (3.5-5.1); TOTAL BILIRUBIN 0.4 mg/dL (0.0-1.0)
[2019-07-28 19:31] LABS: RBC,URINE 0-5 /HPF (0-5); YEAST,URINE Many /HPF (None Seen)
[2019-07-28] MEDS: NACL 0.9% 1,000 ML IV SCH (19:41)
[2019-07-28] MEDS ORDERED: HYDROcodone/APAP 5/325 MG 1 TAB TAB PO PRN (19:45)
[2019-07-28] MEDS ORDERED: MORPHINE SULFATE 2 MG/ML SYR IVP PRN (19:45)
[2019-07-28] MEDS ORDERED: ACETAMINOPHEN 325 MG TAB PO PRN (19:45)
[2019-07-28] MEDS ORDERED: ONDANSETRON 4 MG/2 ML VIAL IM/IVP PRN (19:45)
[2019-07-28] MEDS ORDERED: cefTRIAXone 1,000 MG VIAL ONE (20:15)
[2019-07-28 20:32] LABS: MAGNESIUM 1.9 mg/dL (1.8-2.4); PHOSPHORUS 3.8 mg/dL (2.5-4.9)
[2019-07-28] MEDS ORDERED: traMADol 50 MG TAB PO PRN (20:50)
[2019-07-28] MEDS ORDERED: FLUCONAZOLE 100 MG TAB PO ONE (20:50)
[2019-07-28 20:51] LABS: BARBITURATE, URINE NEGATIVE ng/ml (NEG <=200); BENZODIAZEPINE, URINE NEGATIVE ng/mL (NEG <=200); CANNABINOID, URINE NEGATIVE ng/mL (NEG <=50); COCAINE, URINE NEGATIVE ng/mL (NEG <=300); OPIATE, URINE POSITIVE ng/mL (NEG <=2000); PHENCYCLIDINE SCREEN,URINE NEGATIVE ng/mL (NEG <=25)
[2019-07-28] MEDS ORDERED: ALBUTEROL HFA MDI 90 MCG/ACTUATION 8 GM INH PRN (20:55)
[2019-07-28] MEDS ORDERED: hydrALAZINE 25 MG TAB PO SCH (21:00)
--- NOTE | 2019-07-28 21:00 | NUR ---
PT ARRIVED TO UNIT VIA GURNEY. RECEIVED REPORT FROM ER NURSE (TERRELL). PT IN BED WITH HOB ELEVATED. PT IS AWAKE, ALERT, AND ORIENTED. UNABLE TO AMBULATE, WITH GENERALIZED WEAKNESS. ABLE TO MAKE NEEDS KNOWN. EQUATORIAL GUINEAN SPEAKING BUT ABLE TO UNDERSTAND AND SPEAK LITTLE SAO TOMEAN. RESPIRATIONS EVEN AND UNLABORED. ON O2 3LPM/NC. SKIN IS WARM, DRY, AND INTACT. ABDOMEN IS SOFT AND NON-TENDER. PT IS INCONTINENT. IV ACCESS NOTED ON LEFT ARM G 20 CLEAN AND INTACT. PT DENIES ANY PAIN OR DISCOMFORT AT THIS TIME. PT ORIENTED TO ROOM. VS STABLE. MRSA SWAB TAKEN. NEW ORDERED MEDICATIONS GIVEN. IVF HANGED. NO QUESTIONS OR REQUESTS MADE AT THIS TIME. KEPT COMFORTABLE. SAFETY MEASURES IN PLACE. BED IN LOW POSITION, SIDE RAILS RAISED, CALL LIGHT WITHIN REACH. WILL CONTINUE TO MONITOR.
--- NOTE | 2019-07-28 21:00 | NUR ---
Patient will be admitted to care of DR VILLALTA. Admited to TELE. Will go to room 128A. Belongings list completed. Report to CAROLYN VASQUEZ.
[2019-07-28] MEDS ORDERED: CRUSHER, PILL MC ONE (21:33)
[2019-07-28] MEDS: GABAPENTIN 300 MG CAP PO SCH (21:47)
[2019-07-28] MEDS: METOPROLOL 25 MG TAB PO SCH (21:48)
[2019-07-28] MEDS: ATORVASTATIN 20 MG TAB PO SCH (21:49)
[2019-07-28] MEDS: hydrALAZINE 25 MG TAB PO SCH (21:54)
[2019-07-28 22:21] VITALS: BP 152/65
[2019-07-29] VITALS: BP 149/46
--- NOTE | 2019-07-29 | NUR ---
VS STABLE PT IN BED USING CELLPHONE. RESPIRATIONS EVEN AND UNLABORED. O2 IN PLACE. DENIES ANY PAIN OR DISCOMFORT. SAFETY MEASURES IN PLACE. CALL LIGHT WITHIN REACH. WILL CONTINUE TO MONITOR.
--- NOTE | 2019-07-29 02:05 | NUR ---
PT IN BED WITH HOB ELEVATED. PT WATCHING TV. NOT IN DISTRESS. O2 IN PLACE. O2 SAT 99%. PT REQUESTING FOR SOMETHING TO EAT. SNACKS GIVEN. PT KEPT SAFE AND COMFORTABLE. CALL LIGHT WITHIN REACH. WILL CONTINUE TO MONITOR.
--- NOTE | 2019-07-29 02:38 | NUR ---
NURSE CALLED THAT PATIENT IS COMPLAINING OF SOB. PATIENT SEEN AND ASSESS. PRN MDI TX GIVEN AT THIS TIME VIA SPACER AND PATIENT TOLERATED WELL WITH NO ADVERSE REACTION. PATIENT IN NO RESPIRATORY DISTRESS AT THIS TIME. WILL CONTINUE TO MONITOR PATIENT. TITRATED O2 FROM 3L TO 2L NASAL CANNULA WITH SPO2 OF 98%. WILL CONTINUE TO MONITOR.
[2019-07-29 04:00] VITALS: BP 158/56
[2019-07-29] MEDS: hydrALAZINE 25 MG TAB PO SCH ×3 (04:13→20:16)
--- NOTE | 2019-07-29 04:13 | NUR ---
VS TAKEN BP-158/56 HR-72. SCHEDULED HYDRALAZINE GIVEN ORDERED. PT DENIES ANY PAIN OR DISCOMFORT. SAFETY MEASURES IN PLACE. CALL LIGHT WITHIN REACH. WILL CONTINUE TO MONITOR.
[2019-07-29 05:58] LABS: BASOPHILS % (AUTO) 0.6 % (0.0-2.0); EOSINOPHILS # (AUTO) 0.2 K/uL (0-0.4); EOSINOPHILS % (AUTO) 3.3 % (0.0-4.0); HEMATOCRIT 23.8 % (36-48); HEMOGLOBIN 7.6 g/dL (12.0-16.0); LYMPHOCYTES # (AUTO) 0.7 K/uL (2.5-16.5); LYMPHOCYTES % (AUTO) 10.6 % (20.5-51.1); MEAN CORPUSCULAR HEMOGLOBIN 27 pg (27-31); MEAN CORPUSCULAR HGB CONC 32 g/dL (33-37); MEAN CORPUSCULAR VOLUME 85.3 fL (80-94); MONOCYTES # (AUTO) 0.5 K/uL (0.8-1.0); MONOCYTES % (AUTO) 8.4 % (1.7-9.3); NEUTROPHILS # (AUTO) 4.9 K/uL (1.8-7.7); NEUTROPHILS % (AUTO) 77.1 % (42.2-75.2); PLATELET COUNT (AUTO) 212 K/uL (140-450); RED CELL DISTRIBUTION WIDTH 17.6 % (11.6-13.7); WHITE BLOOD COUNT (AUTO) 6.3 K/uL (4.8-10.8)
[2019-07-29 06:38] LABS: ANION GAP 8.5 (8-16); CARBON DIOXIDE 32.7 mmol/L (21-32); CREATININE 0.9 mg/dL (0.6-1.3); POTASSIUM 4.2 mmol/L (3.5-5.1)
[2019-07-29 06:47] LABS: CHOL/HDL RATIO 1.7 (1-4.5)
[2019-07-29 07:06] LABS: MAGNESIUM 1.8 mg/dL (1.8-2.4); PHOSPHORUS 3.7 mg/dL (2.5-4.9)
--- NOTE | 2019-07-29 07:12 | NUR ---
ENDORSED TO DAY SHIFT NURSE FOR CONTINUITY OF CARE. PT IN STABLE CONDITION.
--- NOTE | 2019-07-29 07:13 | NUR ---
RECEIVED REPORT FROM OIL AND GAS PRINCIPAL NURSE FOR CONTINUITY OF CARE. A&OX4; UKRAINIAN SPEAKING. RESPIRATIONS EVEN AND UNLABORED, BREATHING TO 2L/NC. LAC 22G IV IS PATENT AND INTACT, RUNNING PER ORDERS. RT CHEST TODD DIALYSIS CATHETER NOTED. REVIEWED PLAN OF CARE WITH PATIENT. TELE MONITOR ATTACHED. SAFETY MEASURES IN PLACE; CALL LIGHT WITHIN REACH, BED IN LOW POSITION. NO DISTRESS NOTED. WILL CONTINUE TO MONITOR.
[2019-07-29 07:44] LABS: ANION GAP 9.7 (8-16); CARBON DIOXIDE 31.5 mmol/L (21-32); CREATININE 0.9 mg/dL (0.6-1.3); POTASSIUM 4.2 mmol/L (3.5-5.1)
[2019-07-29 08:00] VITALS: BP 154/48
--- NOTE | 2019-07-29 08:49 | NUR ---
PATIENT HAS BEEN SCREENED AND CATEGORIZED HIGH NUTRITION RISK. PATIENT WILL BE SEEN WITHIN 1-2 DAYS OF ADMISSION. 07/29/19-07/30/[address]
[2019-07-29] MEDS ORDERED: amLODIPine 5 MG TAB PO SCH ×2 (09:00→15:00)
[2019-07-29] MEDS: DULoxetine 30 MG CAPDR PO SCH (09:17)
[2019-07-29] MEDS: GABAPENTIN 300 MG CAP PO SCH ×2 (09:17→20:16)
[2019-07-29] MEDS: METOPROLOL 25 MG TAB PO SCH ×2 (09:17→20:16)
[2019-07-29] MEDS: PANTOPRAZOLE 40 MG TABEC PO SCH (09:17)
[2019-07-29] MEDS: MULTIVITAMIN 1 TAB PO SCH (09:18)
[2019-07-29] MEDS: LEVOTHYROXINE 0.025 MG TAB PO SCH (09:18)
--- NOTE | 2019-07-29 09:45 | NUR ---
SCHEDULED MEDICATIONS ADMINISTERED. BP: 154/48; PULSE: 77. PT TOLERATED PO MEDICATIONS WELL. NO DISTRESS NOTED. SAFETY MEASURES IN PLACE. TELE MONITOR ATTACHED. WILL CONTINUE TO MONITOR.
--- NOTE | 2019-07-29 10:18 | NUR ---
DIRECTOR OF BLOOD NOTE: Basic Screen: Yes High Risk DC Screen [place]: SACHIN Garcia Relationship: DAUGHTER Pre-Admission Living Arrangements: SNF Other: [facility] Prior ADL Total/Dependent Current Home Health Name/Tel: N/A Current DME/02 Name/Tel: OXYGEN, BED BOUND Current Hospice Name/Tel: N/A Current Dialysis Name/Tel: [facility] 3:15PM - //FRI Healthcare Decision Maker: Patient Advance Directive No Physician Orders for Life Sustaining Treatment Form No Discipline: Case Mgt/Social Svcs Tentative Discharge Plan/Destination: SNF/ECF Other: [facility] Will require assistance post discharge: No Referred to Production Truck Driver: No Tentative Discharge Plan Summary: PATIENT IS A 69-YEAR-OLD FEMALE ADMITTED FOR UTI AND GENERALIZED WEAKNESS. PATIENT HAS PMHX OF COPD, HYPERTENSION, HYPERLIPIDEMIA, HYPOTHYROIDISM, RHEUMATOID ARTHRITIS, ANEMIA OF CHRONIC DISEASE, CHRONIC PAIN, AND FUNCTIONAL QUARDIPLEGIA. PATIENT WAS ADMITTED FROM [facility]. SW CONTACTED DAISY FROM [facility] TO VERIFY DEMOGRAPHICS [phone]. PER DAISY, PATIENT IS NURSING HOME AND ON A BED HOLD. DAISY STATED THAT PATIENT IS ALERT/ORIENTED AT BASELINE AND IS SELF-RESPONSIBLE FOR MEDICAL DECISIONS. ZACHERY TATED THAT PATIENT REQUIRES TOTAL ASSISTANCE WITH ADLS. TENTATIVE DISCHARGE PLAN IS FOR PATIENT TO RETURN TO [facility]. NO FURTHER NEEDS IDENTIFIED. Signature: QING COLON Date: Jul 29, 2019 Time: 10:17
[2019-07-29 12:00] VITALS: BP 165/56
--- NOTE | 2019-07-29 14:25 | NUR ---
ASSISTED DISTRIBUTION CENTER MANAGER TO CHANGE AND CLEAN PATIENT. BP RECHECKED; 1200 BP: 165/56; RECHECKED BP: 174/68. DR VIVIAN PIPER.
--- NOTE | 2019-07-29 14:35 | NUR ---
AMLODIPINE ADMINISTERED FOR BP OF 174/68. NO ACUTE DISTRESS NOTED. SAFETY MEASURES IN PLACE. WILL CONTINUE TO MONITOR.
--- NOTE | 2019-07-29 15:09 | NUR ---
DISCHARGE PLANNING: THIS IS A 69 Y/O FEMALE PATIENT FROM [facility], WHO WAS BROUGHT IN DUE TO GENERALIZED WEAKNESS AND RIGHT ARM SWELLING. PAST MEDICAL HISTORY INCLUDE ESRD ON HD T, CHRONICA RESPIRATORY FAILURE ON 2L O2, OBSTRUCTIVE SLEEP APNEA ON BIPAP, COPD, HTN, RHEUMATOID ARTHRITIS, ANEMIA OF CHRONIC DISEASE, CHRONIC PAIN AND FUNCTIONAL QUAD. INITIAL DIAGNOSIS OF UTI AND GENERALIZED WEAKNESS. CURRENT LABS INCLUDE WBC 6.3, H/H 7.6/23.8, NA/K 138/4.2, BUN/CREA 13/0.9 AND D DIMER 1070. ON ROCEPHIN. NO CONSULTS AT THIS TIME. DC PLAN BACK TO [facility] ONCE STABLE.
--- NOTE | 2019-07-29 15:49 | NUR ---
07/29/19 RD INITIAL ASSESSMENT COMPLETED PLEASE REFER TO NUTRITION ASSESSMENT UNDER CARE ACTIVITY FOR ESTIMATED NUTRITIONAL NEEDS. 1. RECOMMEND RENAL, CARDIAC NA2GM MECHANICAL SOFT DIET TOLERATED 2. RECOMMEND NEPRO BID 3. ENCOURAGE PO INTAKE 4. RD TO FOLLOW-UP 2-3 DAYS, HIGH RISK QUINTON NUNEZ, RD
[2019-07-29 16:00] VITALS: BP 138/70
--- NOTE | 2019-07-29 19:09 | NUR ---
GAVE BEDSIDE REPORT TO NIGHTSHIFT NURSE, FOR CONTINUITY OF CARE. PT IS IN STABLE CONDITION.
--- NOTE | 2019-07-29 19:10 | NUR ---
RECEIVED BEDSIDE REPORT FROM DAY SHIFT NURSE. PATIENT IS AWAKE, ALERT, AND COOPERATIVE. RESPIRATION EVEN UNLABORED ON 2L NC O2. NO DISTRESS NOTED. SKIN IS WARM AND DRY. IV PATENT AND INTACT. PLAN OF CARE WAS DISCUSSED ALL SAFETY MEASURES IN PLACE. BED IS AT LOW POSITION. CALL LIGHT WITHIN REACH AND VERBALIZES ITS USE. WILL CONTINUE TO MONITOR.
[2019-07-29] MEDS: NACL 0.9% 1,000 ML IV SCH (19:41)
[2019-07-29 20:00] VITALS: BP 155/60
[2019-07-29] MEDS: ATORVASTATIN 20 MG TAB PO SCH (20:16)
--- NOTE | 2019-07-29 20:16 | NUR ---
INITIAL ASSESSMENT DONE. VITALS WERE TAKEN. PATIENT COMPLAINING OF GENERALIZED PAIN 6/10. PRN PAIN MED ADMINISTERED PER ORDER. ALL SCHEDULED MEDS WERE GIVEN. PATIENT IN STABLE CONDITION. SATING 97% ON 2L NC O2. NO DISTRESS NOTED. WILL CONTINUE TO MONITOR.
--- NOTE | 2019-07-29 21:36 | NUR ---
CHECKED PATIENT. PATIENT SLEEPING RESPIRATION EVEN UNLABORED ON 2L NC O2. PAIN MEDS EFFECTIVE. WILL CONTINUE TO MONITOR.
--- NOTE | 2019-07-29 23:12 | NUR ---
CHECKED PATIENT. PATIENT AWAKE, WATCHING TV RESPIRATION EVEN UNLABORED ON 2L NC O2. NO DISTRESS NOTED. WILL CONTINUE TO MONITOR.
--- NOTE | 2019-07-29 23:45 | NUR ---
1ST COVID TEST NEGATIVE. SWABBED PATIENT FOR 2ND COVID TEST. AWAITING FOR RESULT.
[2019-07-30] VITALS: BP 140/67
--- NOTE | 2019-07-30 00:05 | NUR ---
VITALS WERE TAKEN. PATIENT IN STABLE CONDITION. NO DISTRESS NOTED. DENIES PAIN. WILL CONTINUE TO MONITOR.
--- NOTE | 2019-07-30 02:20 | NUR ---
CHECKED PATIENT. PATIENT SLEEPING RESPIRATION EVEN UNLABORED ON 2L NC O2. SATING 97%. NO DISTRESS NOTED. WILL CONTINUE TO MONITOR.
[2019-07-30 04:00] VITALS: BP 148/58
--- NOTE | 2019-07-30 04:05 | NUR ---
VITALS WERE TAKEN. PATIENT IN STABLE CONDITION. NO DISTRESS NOTED. WILL CONTINUE TO MONITOR.
[2019-07-30] MEDS: hydrALAZINE 25 MG TAB PO SCH ×3 (04:18→21:55)
[2019-07-30 06:11] LABS: BASOPHILS % (AUTO) 1.1 % (0.0-2.0); EOSINOPHILS # (AUTO) 0.2 K/uL (0-0.4); EOSINOPHILS % (AUTO) 5.9 % (0.0-4.0); HEMATOCRIT 24.6 % (36-48); HEMOGLOBIN 7.9 g/dL (12.0-16.0); LYMPHOCYTES # (AUTO) 0.8 K/uL (2.5-16.5); LYMPHOCYTES % (AUTO) 19.3 % (20.5-51.1); MEAN CORPUSCULAR HEMOGLOBIN 28 pg (27-31); MEAN CORPUSCULAR HGB CONC 32 g/dL (33-37); MEAN CORPUSCULAR VOLUME 85.9 fL (80-94); MONOCYTES # (AUTO) 0.4 K/uL (0.8-1.0); MONOCYTES % (AUTO) 10.7 % (1.7-9.3); NEUTROPHILS # (AUTO) 2.4 K/uL (1.8-7.7); PLATELET COUNT (AUTO) 207 K/uL (140-450); RED BLOOD CELL COUNT(AUTO) 2.86 MIL/uL (4.20-5.40); RED CELL DISTRIBUTION WIDTH 17.9 % (11.6-13.7); WHITE BLOOD COUNT (AUTO) 3.9 K/uL (4.8-10.8)
[2019-07-30 06:53] LABS: ANION GAP 7.9 (8-16); CARBON DIOXIDE 33.4 mmol/L (21-32); CREATININE 0.9 mg/dL (0.6-1.3); POTASSIUM 4.3 mmol/L (3.5-5.1)
--- NOTE | 2019-07-30 07:13 | NUR ---
ENDORSED PATIENT TO DAY SHIFT NURSE. PATIENT IN STABLE CONDITION.
--- NOTE | 2019-07-30 07:34 | NUR ---
RECEIVED REPORT FROM [employer] NURSE FOR CONTINUITY OF CARE. PT IS AWAKE AND ALERT. RESPIRATIONS ARE EVEN AND UNLABORED, BREATHING TO 2L/NC. LAC 22G IV IS PATENT AND INTACT, RUNNING PER ORDERS. RT [employer]. NO DIALYSIS ORDERED. REVIEWED PLAN OF CARE WITH PATIENT. TELE MONITOR ATTACHED. SAFETY MEASURES IN PLACE; CALL LIGHT WITHIN REACH, BED IN LOW POSITION. NO DISTRESS NOTED. WILL CONTINUE TO MONITOR.
[2019-07-30 08:00] VITALS: BP 161/67
--- NOTE | 2019-07-30 10:45 | NUR ---
SCHEDULED MEDICATIONS ADMINISTERED, WITH MEDICATION EDUCATION PROVIDED. PT TOLERATED PO MEDS WELL. BP CHECKED; BP: 161/67, PULSE: 69. PT COMPLAINED OF FEELING COLD, AND THIRSTY; PROVIDED PT WITH A WARM BLANKET AND JUICE. PT STATED THAT SHE WANTS TO REST. NO DISTRESS NOTED. SAFETY MEASURES IN PLACE; BED IN LOW POSITION, CALL LIGHT WITHIN REACH. WILL CONTINUE TO MONITOR.
[2019-07-30] MEDS: DULoxetine 30 MG CAPDR PO SCH (10:48)
[2019-07-30] MEDS: LEVOTHYROXINE 0.025 MG TAB PO SCH (10:49)
[2019-07-30] MEDS: METOPROLOL 25 MG TAB PO SCH ×2 (10:49→21:55)
[2019-07-30] MEDS: PANTOPRAZOLE 40 MG TABEC PO SCH (10:49)
[2019-07-30] MEDS: amLODIPine 5 MG TAB PO SCH (10:49)
[2019-07-30] MEDS: MULTIVITAMIN 1 TAB PO SCH (10:50)
[2019-07-30] MEDS: GABAPENTIN 300 MG CAP PO SCH ×2 (10:50→21:54)
[2019-07-30 12:00] VITALS: BP 120/58
[2019-07-30] MEDS: DOCUSATE SODIUM 100 MG GELCAP PO PRN (13:06)
--- NOTE | 2019-07-30 13:06 | NUR ---
PT COMPLAINS OF PAIN WHILE TRYING TO HAVE A BOWEL MOVEMENT, AND ASKED FOR LUBRICATION. PT PASSED A VERY LARGE, HARD BOWEL MOVEMENT, BUT NOT ABLE TO PASS ALL HARD STOOL. STOOL DIGITALLY REMOVED WITH LUBRICATION. PO COLACE ADMINISTERED.
--- NOTE | 2019-07-30 13:25 | NUR ---
ATTEMPTED TO CALL PT'S GRANDDAUGHTER SO THE PT COULD SPEAK WITH HER, PIOTR: [phone]; BUT WAS UNABLE TO REACH HER. WILL TRY AGAIN LATER.
[2019-07-30 16:00] VITALS: BP 151/49
--- NOTE | 2019-07-30 17:23 | NUR ---
ATTEMPTED TO CONTACT PATIENT'S GRANDDAUGHTER AGAIN, AND WAS UNABLE TO REACH HER.
--- NOTE | 2019-07-30 17:31 | NUR ---
PT COMPLAINED OF SEVERE PAIN "ALL OVER". PRN ULTRAM ADMINISTERED. WILL REASSESS PAIN.
--- NOTE | 2019-07-30 19:29 | NUR ---
ENDORSED TO TRUCK LEASING MANAGER NURSE, FOR CONTINUITY OF CARE. PT IS IN STABLE CONDITION.
--- NOTE | 2019-07-30 19:30 | NUR ---
RECEIVED ENDORSEMENT FROM AM SHIFT RN. PATIENT IS IN BED. NO SOB. ON 2 LPM VIA NC AT 97%. DENIES PAIN. ABLE TO MAKE NEEDS KNOWN. WITH IV SITE AT LAC 20G, INTACT. NOTED RIGHT CHEST TODD CATH FOR DIALYSIS ACCESS Q T. TH. SAT. PATIENT IS R/O COVID 19. ASSESSMENT DONE. SKIN IS INTACT. DROPLET PRECAUTION ISOLATION OBSERVED AT ALL TIMES. FALL RISK PROTOCOL IN PLACE. PLAN OF CARE WAS DISCUSSED. CALL LIGHT WITHIN REACH. WILL CONTINUE TO MONITOR.
[2019-07-30] MEDS: NACL 0.9% 1,000 ML IV SCH (19:41)
[2019-07-30 20:00] VITALS: BP 133/47
--- NOTE | 2019-07-30 21:09 | NUR ---
97% ON 2LNC
[2019-07-30] MEDS: ATORVASTATIN 20 MG TAB PO SCH (21:54)
--- NOTE | 2019-07-30 21:55 | NUR ---
DUE MEDS GIVEN ORDERED. TOLERATED WELL. MED EDUCATION PROVIDED. WILL CONTINUE TO MONITOR.
[2019-07-30] MEDS ORDERED: KETOROLAC 30 MG/ML VIAL IM SCH (22:20)
[2019-07-30] MEDS ORDERED: ALBUTEROL SULFATE/IPRATROPIU 3 ML SOL IH PRN (22:25)
[2019-07-30] MEDS ORDERED: KETOROLAC 30 MG/ML VIAL IVP SCH (22:55)
--- NOTE | 2019-07-30 23:15 | NUR ---
PATIENT C/O GENERALIZED PAIN 08/26. INFORMED RESIDENT DOCTOR AND ORDERED TORADOL IVP. NOTED AND CARRIED OUT. WILL CONTINUE TO MONITOR.
[2019-07-31] VITALS: BP 138/48
--- NOTE | 2019-07-31 02:57 | NUR ---
PATIENT IS SLEEPING. CALL LIGHT WITHIN REACH. WILL CONTINUE TO MONITOR.
[2019-07-31 04:00] VITALS: BP 151/50
--- NOTE | 2019-07-31 04:49 | NUR ---
V/S TAKEN AND RECORDED. DENIES PAIN. NO SOB. KEPT CLEAN, DRY AND COMFORTABLE AT ALL TIMES. CALL LIGHT WITHIN REACH. WILL CONTINUE TO MONITOR.
[2019-07-31] MEDS: hydrALAZINE 25 MG TAB PO SCH ×2 (05:33→13:34)
[2019-07-31] MEDS: NACL 0.9% 1,000 ML IV SCH (05:49)
--- NOTE | 2019-07-31 06:34 | NUR ---
PATIENT IS WATCHING TV. DENIES PAIN. RESPIRATION EVEN AND UNLABORED. WILL CONTINUE TO MONITOR.
[2019-07-31 07:29] LABS: ANION GAP 7.8 (8-16); CARBON DIOXIDE 32.8 mmol/L (21-32); CREATININE 0.9 mg/dL (0.6-1.3); POTASSIUM 4.6 mmol/L (3.5-5.1)
--- NOTE | 2019-07-31 07:30 | NUR ---
ENDORSED PATIENT TO AM SHIFT RN FOR CONTINUITY OF CARE. NO DISTRESS NOTED.
--- NOTE | 2019-07-31 07:31 | NUR ---
RECEIVED REPORT FROM DIRECTOR PROPERTY NURSE ANAT-RN. PT SLEEPING IN BED, AOX3/4-BELARUSIAN/KINYARWANDA SPEAKING, ON 2L/NC WITH LEFT AC #20G RUNNING NS @10ML/HR. RIGHT TODD CATH FOR DIALYSIS FRIDAY, FRIDAY AND FRIDAY. CALL LIGHT WITHIN REACH. NO S/S OF RESPIRATORY DISTRESS OR DISCOMFORT NOTED AT THIS TIME. WILL CONTINUE TO MONITOR.
[2019-07-31 07:35] LABS: BASOPHILS % (AUTO) 1.4 % (0.0-2.0); EOSINOPHILS # (AUTO) 0.3 K/uL (0-0.4); EOSINOPHILS % (AUTO) 10.1 % (0.0-4.0); HEMATOCRIT 24.5 % (36-48); HEMOGLOBIN 7.7 g/dL (12.0-16.0); LYMPHOCYTES # (AUTO) 0.8 K/uL (2.5-16.5); LYMPHOCYTES % (AUTO) 24.4 % (20.5-51.1); MEAN CORPUSCULAR HEMOGLOBIN 27 pg (27-31); MEAN CORPUSCULAR HGB CONC 31 g/dL (33-37); MEAN CORPUSCULAR VOLUME 86.2 fL (80-94); MONOCYTES # (AUTO) 0.3 K/uL (0.8-1.0); MONOCYTES % (AUTO) 8.4 % (1.7-9.3); NEUTROPHILS # (AUTO) 1.9 K/uL (1.8-7.7); NEUTROPHILS % (AUTO) 55.7 % (42.2-75.2); PLATELET COUNT (AUTO) 206 K/uL (140-450); RED BLOOD CELL COUNT(AUTO) 2.84 MIL/uL (4.20-5.40); RED CELL DISTRIBUTION WIDTH 17.8 % (11.6-13.7); WHITE BLOOD COUNT (AUTO) 3.4 K/uL (4.8-10.8)
[2019-07-31 08:00] VITALS: BP 145/47
[2019-07-31] MEDS ORDERED: FLUCONAZOLE 100 MG TAB PO SCH (09:00)
[2019-07-31] MEDS: GABAPENTIN 300 MG CAP PO SCH (09:02)
[2019-07-31] MEDS: DULoxetine 30 MG CAPDR PO SCH (09:02)
[2019-07-31] MEDS: PANTOPRAZOLE 40 MG TABEC PO SCH (09:02)
[2019-07-31] MEDS: METOPROLOL 25 MG TAB PO SCH (09:02)
[2019-07-31] MEDS: amLODIPine 5 MG TAB PO SCH (09:02)
[2019-07-31] MEDS: LEVOTHYROXINE 0.025 MG TAB PO SCH (09:02)
[2019-07-31] MEDS: DOCUSATE SODIUM 100 MG GELCAP PO PRN (09:03)
[2019-07-31] MEDS: MULTIVITAMIN 1 TAB PO SCH (09:03)
--- NOTE | 2019-07-31 09:04 | NUR ---
SCHEDULED MEDICATIONS GIVEN AND TOLERATED WELL. COLACE GIVEN FOR CONSTIPATION WELL PRUNE JUICE. PT TOLERATED WELL. CALL LIGHT AND TELEPHONE WITHIN REACH. NO S/S OF RESPIRATORY DISTRESS OR DISCOMFORT NOTED AT THIS TIME. WILL CONTINUE TO MONITOR.
[2019-07-31] MEDS ORDERED: [UNRECOGNIZED DRUG - OTHER] PO SCH (09:45)
--- NOTE | 2019-07-31 09:50 | NUR ---
SCHEDULED MEDICATION DIFLUCAN GIVEN AND TOLERATED WELL. CALL LIGHT AND TELEPHONE WITHIN REACH. NO S/S OF RESPIRATORY DISTRESS OR DISCOMFORT NOTED AT THIS TIME. WILL CONTINUE TO MONITOR.
[2019-07-31 10:35] VITALS: BP 145/47
[2019-07-31 12:00] VITALS: BP 131/52
--- NOTE | 2019-07-31 12:05 | NUR ---
SPOKE WITH LUCY FROM [facility] AND GAVE REPORT. ETA 1430 BY [facility]. LUCY AND PT AWARE.
--- NOTE | 2019-07-31 13:00 | NUR ---
PT SIGNED DISCHARGE PAPERWORK. AWAITING FOR [facility]. PT STABLE. CALL LIGHT WITHIN REACH. NO S/S OF RESPIRATORY DISTRESS OR DISCOMFORT NOTED AT THIS TIME. WILL CONTINUE TO MONITOR.
--- NOTE | 2019-07-31 13:34 | NUR ---
SCHEDULED MEDICATION APRESOLINE GIVEN AND TOLERATED WELL. CALL LIGHT WITHIN REACH. NO S/S OF RESPIRATORY DISTRESS OR DISCOMFORT NOTED AT THIS TIME. WILL CONTINUE TO MONITOR.
--- NOTE | 2019-07-31 14:45 | NUR ---
[facility] ARRIVED TO TAKE PT BACK TO [facility]. PT STABLE AT THIS TIME.
== END 2019-07-31 14:45 | DRG 757 ==
LOC: MED 16:27 → MTU 19:41 → EEVIPCON 19:41 → MMU 20:45
PROVIDERS: ADMIT General Practice; ATTEND General Practice
DX: B37.49 Other urogenital candidiasis (principal); I50.43 Acute on chronic combined systolic (congestive) and diastolic (congestive) heart failure; E43 Unspecified severe protein-calorie malnutrition; N18.6 End stage renal disease; R53.2 Functional quadriplegia; I13.2 Hypertensive heart and chronic kidney disease with heart failure and with stage 5 chronic kidney disease, or end stage renal disease; J96.10 Chronic respiratory failure, unspecified whether with hypoxia or hypercapnia; E87.1 Hypo-osmolality and hyponatremia; E66.01 Morbid (severe) obesity due to excess calories; G47.33 Obstructive sleep apnea (adult) (pediatric); B96.89 Other specified bacterial agents as the cause of diseases classified elsewhere; E87.8 Other disorders of electrolyte and fluid balance, not elsewhere classified; D63.8 Anemia in other chronic diseases classified elsewhere; F32.9 Major depressive disorder, single episode, unspecified; E78.5 Hyperlipidemia, unspecified; Z20.828 Contact with and (suspected) exposure to other viral communicable diseases; E03.9 Hypothyroidism, unspecified; M06.9 Rheumatoid arthritis, unspecified; G89.29 Other chronic pain; Z99.2 Dependence on renal dialysis; Z79.899 Other long term (current) drug therapy; Z68.36 Body mass index [BMI] 36.0-36.9, adult
CPT/HCPCS: 36415; 71045; 80048; 80053; 80305; 81001; 82728; 83605; 83615; 83735; 83880; 84100; 84484; 85025; 85379; 85610; 85651; 85730; 86140; 87040; 87081; 87086; 93005; 93971; 94664; 96365; 97110; 97161-GP; 99285; C1758; J0696; J1644; J1885; J7030; J7060; Q0092; U0003-CS

== ENCOUNTER 2019-11-23 17:38 | Inpatient (IN) | payer OTHER, MEDICAID, SELFPAY ==
[~2019-11-23] VITALS: Ht 152.4 cm; Wt 79.8 kg
[~2019-11-23 17:38] MED LIST changes: -ACET-9529 PO; -ALPR0.5T2 PO; -ATEN25TA7 PO; +ATOR20TA PO; +ATRN INH; +BUDE1AER IH; -DOCU-299 PO; +DULO60EC PO; -DULO60EC75 PO; -FER325 PO; -FLUO118.1 TP; -GABA-638 PO; +GABA300C PO; +HEPA500056 SUBQ; +HYDR-1098 PO; -HYDR-3320 PO; +HYDR-5092 PO; -HYDR200T5 PO; -LACT10CA1 PO; -LEVO0.0211 PO; -MECL-322 PO; -MERO1VIA13 IV; -METH4TAB3 PO; +METO25TA PO; -MIRT15TA4 PO; +MULT1SGL58 PO; -OMEP40EC14 PO; +PANT40EC PO; +PRON INH; +PUL.5N INH; -QUEPKT PO; -SIMV-30 PO; +SPIMDI INH; -SULF500T6 PO; +SYN.05 PO; -TOFA11TA PO; -VITA1TAB44 PO; -VITC500 PO; -XAR10 PO
--- NOTE | 2019-11-23 17:44 | NUR ---
BIBA TAKEN TO BED 9
[2019-11-23 17:47] VITALS: BP 125/56
--- NOTE | 2019-11-23 17:56 | NUR ---
dr trimble at bedside evaluating pt.
--- NOTE | 2019-11-23 18:15 | NUR ---
oneal marks at bedside doin ekg.
--- NOTE | 2019-11-23 18:16 | NUR ---
xray at bedside
--- NOTE | 2019-11-23 18:17 | NUR ---
verbal order for in and out straight cath read back dr trimble.rn imelda harmon.
[2019-11-23] MEDS ORDERED: PIPERACILLIN/TAZOBACTAM 3.375 GM in DEXTROSE 5% 50 ML IV ONE (18:40)
[2019-11-23] MEDS ORDERED: VANCOMYCIN 1,000 MG in DEXTROSE 5% 250 ML IV ONE (18:40)
--- NOTE | 2019-11-23 18:42 | NUR ---
Pt arleth bhatt from [facility] for SOB since 729 today, pt on 8L non rebreather upon arrival.Pt aox3 , afibrile , bed bound , sce , rt cvc clean intact dressing , avf left arm , round soft abdomen. medhx: COPD, HLD, Anemia
[2019-11-23] MEDS ORDERED: GLYC15SO12 OP (18:45)
[2019-11-23] MEDS ORDERED: BEN50 PO (18:46)
[2019-11-23] MEDS ORDERED: PRED20TA5 PO (18:47)
[2019-11-23 18:48] LABS: APPEARANCE,URINE CLOUDY (CLEAR); BILIRUBIN,URINE NEGATIVE (NEGATIVE); BLOOD, URINE NEGATIVE (NEGATIVE); COLOR,URINE YELLOW (YELLOW); LEUKOCYTE ESTERASE ,URINE 1+ (NEGATIVE); NITRITE, URINE NEGATIVE (NEGATIVE); UGLUCOSE NEGATIVE (NEGATIVE)
[2019-11-23] MEDS ORDERED: LACT1CAP63 PO (18:48)
[2019-11-23] MEDS ORDERED: SERT-146 PO (18:50)
[2019-11-23 18:54] LABS: RBC,URINE 0-5 /HPF (0-5); WBC,URINE 16-25 (MOD) /HPF (0-5)
[2019-11-23] MEDS ORDERED: PIPERACILLIN/TAZOBACTAM 3.375 GM VIAL IV ONE (18:56)
[2019-11-23] MEDS ORDERED: VANCOMYCIN 1,000 MG VIAL ONE (18:57)
[2019-11-23 19:10] VITALS: BP 151/61
--- NOTE | 2019-11-23 19:10 | NUR ---
ABG RESULTS WERE GIVEN TO DR. LARSON. PLACED PT ON BiPAP SETTINGS IPAP 16, EPAP 6, BACK UP RATE 20, FIO2 50% BASED ON ABG RESULTS. VENT CONNECTED TO RED OUTLET AND ALARMS SET AND AUDIBLE. RN NOTIFIED. WILL CONTINUE TO MONITOR PT.
--- NOTE | 2019-11-23 19:15 | NUR ---
gave report to mel rodriguez pt comfortable in bed , side rail up and lock at lowest position , informed th dr trimble will put us guided iv.Meds given to mel oleary.
--- NOTE | 2019-11-23 19:15 | NUR ---
KARMEND MADE AWARE OF THE NEED FOR AN ULTRASOUNDED GUIDED IV. SUPPLIES AT BEDSIDE.
--- NOTE | 2019-11-23 19:19 | NUR ---
recieved report from CHRISTINA Merino. [facility] at this time.
--- NOTE | 2019-11-23 19:20 | NUR ---
RT AT BEDSIDE. PT ON BIPAP MACHINE SATING AT 100%. PT STATES SHE HAS PAIN IN ABD, DENIES NEED FOR PAIN MEDICINE. EQUAL CHEST RISE AND FALL. BED LOCKED AND IN LOWEST POSITION. FIELD ARTILLERY OPERATIONS SPECIALIST/O2 SAT IN PLACE. SIDE RAILS X2.
[2019-11-23 19:22] LABS: HEMATOCRIT 38.1 % (36-48); HEMOGLOBIN 11.6 g/dL (12.0-16.0); MEAN CORPUSCULAR HEMOGLOBIN 25 pg (27-31); MEAN CORPUSCULAR HGB CONC 30 g/dL (33-37); MEAN CORPUSCULAR VOLUME 81.3 fL (80-94); PLATELET COUNT (AUTO) 301 K/uL (140-450); RED BLOOD CELL COUNT(AUTO) 4.69 MIL/uL (4.20-5.40); RED CELL DISTRIBUTION WIDTH 16.2 % (11.6-13.7); WHITE BLOOD COUNT (AUTO) 18.3 K/uL (4.8-10.8)
[2019-11-23 19:31] LABS: PROTHROMBIN TIME 9.7 secs (10.8-13.4)
[2019-11-23 19:34] LABS: ALBUMIN 3.6 g/dL (3.4-5.0); ANION GAP 11.6 (8-16); CARBON DIOXIDE 30.4 mmol/L (21-32); CREATININE 1.9 mg/dL (0.6-1.3); TOTAL BILIRUBIN 0.3 mg/dL (0.0-1.0)
[2019-11-23 19:35] LABS: LACTATE DEHYDROGENASE 304 U/L (81-234)
[2019-11-23 19:39] LABS: LYMPHOCYTES % (MANUAL) 2 % (20-46); MONOCYTES % (MANUAL) 4 % (5-12)
--- NOTE | 2019-11-23 20:02 | NUR ---
DR. MELENDEZ AT BEDSIDE PERFROMING ULTRASOUND GUIDED IV
[2019-11-23] MEDS ORDERED: HYDROcodone/APAP 7.5/325 MG 1 TAB PO PRN (20:10)
[2019-11-23] MEDS ORDERED: DEXT 5% /NACL 0.9% 1,000 ML IV SCH (20:10)
[2019-11-23] MEDS ORDERED: ONDANSETRON 4 MG/2 ML VIAL IM/IVP PRN (20:10)
[2019-11-23] MEDS ORDERED: guaiFENesin DM 200/20 MG-10 ML 10 ML UDC PO PRN (20:10)
[2019-11-23] MEDS ORDERED: POTASSIUM CHLORIDE 40 MEQ, LIDOCAINE MPF 1% 25 MG in NACL 0.9% 250 ML IV PRN (20:10)
[2019-11-23] MEDS ORDERED: DOCUSATE SODIUM 100 MG GELCAP PO PRN (20:10)
--- NOTE | 2019-11-23 20:30 | NUR ---
RT AT BEDSIDE
[2019-11-23 20:39] LABS: CHOL/HDL RATIO 1.6 (1-4.5); FREE T4 (FREE THYROXINE) 0.68 ng/dL (0.76-1.46); MAGNESIUM 2.1 mg/dL (1.8-2.4); PHOSPHORUS 5.9 mg/dL (2.5-4.9); THYROID STIMULATING HORMONE 2.14 uIU/mL (0.34-3.74)
--- NOTE | 2019-11-23 20:44 | NUR ---
ABG RESULTS WERE GIVEN TO DR. LARSON. NO CHANGES MADE TO SETTINGS AT THIS TIME. WILL CONTINUE TO MONITOR PT
--- NOTE | 2019-11-23 20:45 | NUR ---
IV PATENT, NO SWELLING OR SIGNS OF INFLITRATION AT THIS TIME.
[2019-11-23 21:02] VITALS: BP 147/63
--- NOTE | 2019-11-23 21:02 | NUR ---
RECEIVED REPORT FROM ER NURSE, NOLAN. PT ARRIVED VIA GURNEY ON TELE. AOX3 ON BIPAP. RESPIRATIONS EVEN AND UNLABORED. IV SITE ON RIGHT UPPER ARM, WHICH WAS INFUSING VANCO, IS INFILTRATED. PT HAS RIGHT CHEST DIALYSIS PORT. PT HAS LEFT ARM FISTULA, WHICH IS NOT WORKING. SKIN WARM DRY INTACT. BOWEL SOUNDS ACTIVE. VS: BP 147/63 HR 87 TEMP 97.5 RR 20 O2 SAT 100%. ORIENTED PT TO ROOM AND HOSPITAL. SAFETY PRECAUTIONS IN PLACE, CALL LIGHT WITHIN REACH. WILL CONTINUE TO MONITOR
--- NOTE | 2019-11-23 21:02 | NUR ---
Patient will be admitted to care of [facility]. Admited to TELE. Will go to room 118. Belongings list completed. Report to CHRISTINA VIVEROS.
[2019-11-23 21:21] VITALS: BP 151/61
--- NOTE | 2019-11-23 21:50 | NUR ---
CALLED DR. PARK FOR PICC LINE ORDER DUE TO FAILED ATTEMPT AT INSERTION OF NEW IV. WILL FOLLOW THROUGH WITH NEW ORDER
[2019-11-23] MEDS: GABAPENTIN 300 MG CAP PO SCH (22:14)
[2019-11-23] MEDS: ATORVASTATIN 20 MG TAB PO SCH (22:14)
[2019-11-23] MEDS: METOPROLOL 25 MG TAB PO SCH (22:14)
--- NOTE | 2019-11-23 22:14 | NUR ---
ADMINISTERED SCHEDULED MEDS PER MD. PT TOLERATED WELL. O2 SAT 100% NO DISTRESS NOTED. WILL CONTINUE TO MONITOR
--- NOTE | 2019-11-23 22:45 | NUR ---
PT TRYING TO TAKE OFF BIPAP. BIPAP WAS PUT BACK ON. O2 SAT 99%. NO DISTRESS NOTED. EDUCATED PT TO KEEP BIPAP ON TO KEEP HER OXYGENATION STABLE. SAFETY PRECAUTIONS IN PLACE. CALL LIGHT WITHIN REACH. WILL CONTINUE TO MONITOR
[2019-11-24] VITALS (98 sets, daily range): BP systolic 51–161; BP diastolic 26–116
--- NOTE | 2019-11-24 00:30 | NUR ---
GOT A CALL FROM CLOTH COVERER, PT O2 SAT 14 TO 20'S. FOUND PT'S BIPAP WAS OFF, PT STILL BREATHING. CALLED RT, DID STERNUM RUB AND CHECKING FOR PULSE. PT UNRESPONSIVE WITH NO PULSE. RT STARTED CPR. MOI CAMARA WAS CALLED.
--- NOTE | 2019-11-24 00:38 | NUR ---
CALLED TO BEDSIDE DUE TO PATIENT DESATURATING. AT BEDSIDE, RN INFORMED ME THAT PT DISCONNECTED BiPAP MASK. RN AT BEDSIDE TRYING TO FIXED THE MASK. PT SPO2 IN 20s. PT LOOKS BLUE, CHECKED PULSE, NO PULSE, CALLED CODE BLUE AND STARTED CHEST COMPRESSIONS. PULSE FOUND, PT WAS SUCCESSFULLY INTUBATED BY DR. GRIJALVA WITH ETT SIZE 7.5 AND SECURED WITH ANCHOR-FAST @ 22cm.
[2019-11-24] MEDS ORDERED: INTUBATION KIT MC ONE (00:50)
[2019-11-24] MEDS ORDERED: KETAMINE 500 MG/5 ML VIAL ONE (00:55)
[2019-11-24] MEDS ORDERED: ETOMIDATE 20 MG/10 ML VIAL IVP ONE (00:55)
[2019-11-24] MEDS ORDERED: LIDOCAINE 2% 100 MG/5 ML SYR IVP ONE (00:55)
[2019-11-24] MEDS ORDERED: ROCURONIUM 50 MG/5 ML VIAL IV ONE (00:55)
[2019-11-24] MEDS ORDERED: SUCCINYLCHOLINE CHLORIDE 200 MG/10 ML VIAL IVP ONE (00:55)
[2019-11-24] MEDS: ALBUTEROL SULFATE/IPRATROPIU 3 ML SOL IH SCH ×4 (01:00→19:56)
--- NOTE | 2019-11-24 01:20 | NUR ---
PT WAS TRANSPORTED TO ICU. CONNECTED PT TO VENT SETTINGS ON VOLUME CONTROL WITH LESS EXHALATION VOLUMES. CHANGED TO PRESSURE CONTROL WITH LITTLE IMPROVEMENT. HHN SCHEDULE TX GIVEN PLUS PRN. EXHALE VOLUMES IN 300s. TITRATED PC TO 30 AND EXHALE VOLUME INCREASED TO 400s. VENT PLUGGED IN RED OUTLET AND ALARMS SET AND AUDIBLE. CURRENT VENT SETTINGS: AC/PC RR 25, PIP 30, iT 0.80, PEEP 5, FiO2 100%. RN NOTIFIED. WILL CONTINUE TO MONITOR PT.
--- NOTE | 2019-11-24 01:20 | NUR ---
NOTIFIED DR. PARK PT STATUS. MD AWARE PT CODE BLUE AND TRANSFERRED TO ICU
[2019-11-24] MEDS ORDERED: PROPOFOL 1000 MG/100 ML PREMIX 100 ML IV ONE ×2 (01:23→02:35)
--- NOTE | 2019-11-24 01:31 | NUR ---
CALLED AND UPDATED ON PATIENT's CONDITION AND CODE BLUE. AWARE PATIENT IS NOW INTUBATED AND IN ICU. RECEIVED NEW ORDERS, WILL CARRY OUT.
--- NOTE | 2019-11-24 01:45 | NUR ---
CROUCH CATHETER INSERTED, HAZY YELLOW URINE IN CATHETER, DRAINING BY GRAVITY. OGT IN PLACE, SUCCESSFUL ON FIRST ATTEMPT, +AUSCULTATION VERIFIED BY 2 NURSES, ASPIRATED GI CONTENT, PENDING XRAY.
[2019-11-24] MEDS ORDERED: MIDAZOLAM MDV 50 MG/10 ML VIAL IV ONE (01:55)
[2019-11-24] MEDS ORDERED: MORPHINE SULFATE 50 MG in NACL 0.9% 45 ML IV PRN (01:55)
[2019-11-24] MEDS ORDERED: PIPERACILLIN/TAZOBACTAM 3.375 GM in DEXTROSE 5% 50 ML IV SCH (02:00)
[2019-11-24] MEDS ORDERED: PIPER/TAZO 2.25GM/D5W PREMIX 50 ML IV SCH (02:00)
[2019-11-24] MEDS: ALBUTEROL SULFATE/IPRATROPIU 3 ML SOL IH PRN (02:18)
--- NOTE | 2019-11-24 02:20 | NUR ---
CALLED NUMBER ON FACE SHEET, THE FIRST NUMBER IS [facility]. CALLED THE SECOND NUMBER, NO ANSWER LEFT A MESSAGE. CALLED AGAIN, NO ANSWER, LEFT A SECOND NUMBER. PHONE NUMBER ON THE FACE SHEET-SACHIN TABARES-CHILD [phone]
[2019-11-24] MEDS ORDERED: NOREPINEPHRINE 16 MG in DEXTROSE 5% 250 ML IV PRN (02:25)
--- NOTE | 2019-11-24 02:30 | NUR ---
NOTIFIED MD ABOUT BP 70S, SEDATION OFF @ THIS TIME. MD AWARE, NEW ORDERS FOR LEVOPHED TITRATE TO KEEP MAP>65. STONECUTTER APPRENTICE HAND PHARMACIST CALLED BY HOUSE SUP FOR VERSED AND MORPHINE DRIP ORDERS. WILL CONTINUE TO OBSERVE.
--- NOTE | 2019-11-24 03:21 | NUR ---
CALLED PICC LINE NURSE [phone] AND LEFT MESSAGE W/ PT NAME UNIT AND BED #.
--- NOTE | 2019-11-24 03:25 | NUR ---
LUKAS THOMPSON AT BEDSIDE FOR CENTRAL LINE PLACEMENT.
--- NOTE | 2019-11-24 03:25 | NUR ---
CALLED SACHIN TABARES [phone]. NO ANSWER. CALLED AGAIN, NO ANSWER, LEFT MESSAGE
[2019-11-24] MEDS: NOREPINEPHRINE 4 MG in DEXTROSE 5% 250 ML IV PRN ×4 (04:30→19:37)
[2019-11-24] MEDS ORDERED: NOREPINEPHRINE 4 MG/4 ML VIAL IV ONE ×2 (04:34→04:44)
--- NOTE | 2019-11-24 05:00 | NUR ---
ERMD UNSUCCESSFUL WITH CENTRAL LINE PLACEMENT TO BILAT GROINS, BRUISING NOTED. WILL CONTINUE TO OBSERVE.
[2019-11-24] MEDS ORDERED: PIPERACILLIN/TAZOBACTAM 2.25 GM VIAL IV ONE (05:40)
--- NOTE | 2019-11-24 05:40 | NUR ---
PAGED DR. JOHNSON. CALLED BACK. ABG RESULTS REPORTED TO DR. DUPONT NO CHANGES MADE AT THIS TIME.
--- NOTE | 2019-11-24 05:55 | NUR ---
SPOKE TO SON SACHIN. UPDATED HIM ON PT STATUS
[2019-11-24] MEDS: MIDAZOLAM MDV 50 MG in NACL 0.9% 40 ML IV PRN ×2 (06:00→10:13)
[2019-11-24] MEDS: MORPHINE SULFATE 100 MG in NACL 0.9% 90 ML IV SCH ×2 (06:00→07:22)
[2019-11-24] MEDS: LEVOTHYROXINE 0.05 MG TAB PO SCH (06:30)
--- NOTE | 2019-11-24 06:32 | NUR ---
REC'D PT ON CARESCAPE VENT SETTINGS PC 30 RR 25 ITIME 0.80 PEEP 5 FIO2 100% ALARMS ON AND AUDIBLE AND BVM AT HOB AND VENT IS PLUGGED INTO RED OUTLET, I\L TX GIVEN WITH DUONEB 3ML WITH NO ADVERSE REACTION POST TX B\S ARE COARSE BILATERALLY SXN PT SMALL AMT OF BLOOD TINT SECRETIONS, PT IS ORALLY INTUBATED WITH 7.5 ETT AT 21CM PT IS RESTING
--- NOTE | 2019-11-24 06:32 | NUR ---
decreased fio2 to 80%
[2019-11-24 06:40] LABS: HEMATOCRIT 35.9 % (36-48); HEMOGLOBIN 10.9 g/dL (12.0-16.0); MEAN CORPUSCULAR HEMOGLOBIN 25 pg (27-31); MEAN CORPUSCULAR HGB CONC 31 g/dL (33-37); MEAN CORPUSCULAR VOLUME 81.5 fL (80-94); PLATELET COUNT (AUTO) 288 K/uL (140-450); RED CELL DISTRIBUTION WIDTH 15.8 % (11.6-13.7); WHITE BLOOD COUNT (AUTO) 20.9 K/uL (4.8-10.8)
[2019-11-24 06:53] LABS: CARBON DIOXIDE 25.3 mmol/L (21-32); CREATININE 2.2 mg/dL (0.6-1.3); POTASSIUM 4.3 mmol/L (3.5-5.1)
--- NOTE | 2019-11-24 06:55 | NUR ---
LEVOPHED ON @ 14 MCG/MIN, PT BP 118/56, PT SEDATED RASS-3 NO ACUTE DISTRESS NOTED. WILL CONTINUE TO OBSERVE.
[2019-11-24 07:04] LABS: LYMPHOCYTES % (MANUAL) 5 % (20-46); MONOCYTES % (MANUAL) 4 % (5-12)
--- NOTE | 2019-11-24 07:09 | NUR ---
REPORT GIVEN TO DAY SHIFT FOR CONTINUITY OF CARE.
--- NOTE | 2019-11-24 07:15 | NUR ---
REPORT RECEIVED FROM HTML WEB DEVELOPER RN. PT IS RASS -3, WITH ETT TO VENT. VENT SETTINGS ARE ACPC WITH FIO2 80%, PEEP 5, R 25. PT HAS ACCESS AT R [facility] FOR DIALYSIS, R EJ, AND IO R AKHTAR. SHE ALSO HAS L AV SHUNT BUT IT IS NOT IN USE. MORPHINE IS RUNNING AT 1 MG/HR, VERSED 1 MG/HR, LEVOPHED AT 14 MCG/MIN, D5NS AT 60 ML/HR. PT HAS OG TUBE IN PLACE FOR MEDICATIONS. CROUCH CATHETER IS IN PLACE. HOB IS 30 DEG, WITH BED IN LOW LOCKED POSITION. WILL CONTINUE TO MONITOR CLOSELY.
[2019-11-24] MEDS: amLODIPine 5 MG TAB PO SCH (08:12)
[2019-11-24] MEDS: METOPROLOL 25 MG TAB PO SCH ×2 (08:12→21:00)
[2019-11-24] MEDS: GABAPENTIN 300 MG CAP PO SCH ×2 (08:21→20:52)
[2019-11-24] MEDS: predniSONE 20 MG TAB PO SCH (08:21)
[2019-11-24] MEDS: SERTRALINE 50 MG TAB PO SCH (08:21)
--- NOTE | 2019-11-24 08:37 | NUR ---
PATIENT HAS BEEN SCREENED AND CATEGORIZED HIGH NUTRITION RISK. PATIENT WILL BE SEEN WITHIN 1-2 DAYS OF ADMISSION. 11/24/19-11/25/[address]
--- NOTE | 2019-11-24 08:42 | NUR ---
DISCHARGE PLANNING: THIS IS A 69 Y/O FEMALE PATIENT FROM [facility], WHO WAS BIBA DUE TO SOB, COUGH AND WEAKNESS. PAST MEDICAL HISTORY INCLUDE HTN, ANEMIA, HYPOTHYROID, COPD, ESRD ON HD T-TH-SAT, FUNCTIONAL QUADRIPLEGIA. CURRENT LABS INCLUDE WBC 20.9, H/H 10.9/35.9, NA/K 136/4.3, BUN/CREA 71/2.2, CRP 4.0, BNP 195, FREE T4 0.68, D DIMER 1340, FIBRINOGEN 294. ON ZOSYN. PULMO AND ID CONSULTS IN PLACE. ETT TO VENT, FIO2 100%, PEEP 5, O2 SAT 94%. SEDATED WITH VERSED AND MORPHINE. ON LEVOPHED DRIP - BP 121/61. RAPID COVID TEST NEGATIVE, PCR PENDING. DC PLAN PENDING ON PATIENT'S RESPONSE TO TREATMENT. Addendum: 11/26/19 at 1108 by Sharon Urbano CM FOR CPAP TRIAL TODAY. Addendum: 12/01/19 at 1012 by Sharon Urbano CM DOWNGRADED TO TELE TODAY. Addendum: 12/02/19 at 1522 by Sharon Urbano CM SEEN BY NEPHRO - SCHED FOR DIALYSIS TOMORROW. Addendum: 12/03/19 at 1331 by Yuniel Watts SS JUNIOR FAXED CLINICALS TO [facility]. JUNIOR CONTACTED SHAI IN ADMISSIONS TO VERIFY IT WAS RECEIVED AND TOLD SHAI THAT TENTATIVE DISCHARGE IS FOR FRIDAY. SHAI VERBALIZED UNDERSTANDING AND PROVIDED CELL - SHAI [phone] FOR FOLLOW UP ON WEEKEND. Addendum: 12/03/19 at 1341 by Sharon Urbano CM CONTACTED CANDIDA OLMSTEAD AT [phone], ABLE TO SPEAK TO FRANCISCO. INFORMED HER THAT DC PLAN IS ON FRIDAY. CHAIR TIME IS M-W-F AT 1430. SHE STATED TO GO AHEAD AND FAX CLINICALS TO [phone]. I ALSO INQUIRED HOW RECENT COVID TESTING THEY REQUIRED, INFORMED HER THAT THE NEGATIVE COVID WAS DONE 11/23/2019. PER FRANCISCO "THAT SHOULD BE FINE." CLINICALS FAXED TO THE PROVIDED NUMBER. Addendum: 12/03/19 at 1530 by Sharon Urbano CM PER BRANDEN INTAKE AT [facility], THEY REQUIRE A RECENT COVID TEST AT LEAST 48HRS PRIOR TO DC. DR. CLARK MADE AWARE. Addendum: 12/04/19 at 1305 by Sharon Urbano CM COVID NEGATIVE RESULT SENT TO [facility]. BRANDEN INTAKE AT [facility] MADE AWARE. AWAITING FOR RESPONSE. Addendum: 12/04/19 at 1309 by Sharon Urbano CM CONTACTED PATIENT'S SON SACHIN TABARES TO DISCUSS TENTATIVE PLAN TO DC PATIENT BACK TO [facility] [place] TOMORROW AND IS IN AGREEMENT. IMM LETTER DISCUSSED WELL, NO QUESTIONS AT THIS TIME.
[2019-11-24] MEDS ORDERED: PANTOPRAZOLE 40 MG TABEC PO SCH (09:00)
[2019-11-24] MEDS: DULoxetine 30 MG CAPDR PO SCH (09:00)
--- NOTE | 2019-11-24 09:15 | NUR ---
MEDICATIONS ADMINISTERED PER ORDER, PT TOLERATED WELL. OG TUBE CONFIRMED PLACEMENT BY AUSCULTATION. PT TEMPERATURE 97.0 TEMPORALLY. VAP ORAL CARE PROVIDED. PT CLEANED AND REPOSITIONED. SKIN TEARS DISCOVERED IN LOWER ABDOMINAL FOLDS AND GROIN AREA. CLEANED, DRIED, AND INTERDRY CLOTH PLACED, PHOTOS TAKEN. WILL CONTINUE TO MONITOR.
--- NOTE | 2019-11-24 09:20 | NUR ---
HEEL PROTECTORS APPLIED, PROPHYLACTIC OPTIFOAM TO SACRUM APPLIED
--- NOTE | 2019-11-24 09:27 | NUR ---
SOCIAL WORK NOTE: Patient's Orientation Unable To Assess Information Provided By SACHIN TABARES - SON Comments SW WAS UNABLE TO MEET PATIENT AT BEDSIDE DUE TO MEDICAL CONDITION. SW CONTACTED PATIENT'S SON TO COMPLETE ASSESSMENT AND VERIFY DEMOGRAPHICS. Estimator Printing Plate Making, Realtionship and Phone Number SACHIN TABARES SON/HEALTHCARE DECISION MAKER [phone] Healthcare Power of Air Plant Engineer No Does Patient Have a POLST No Identifying Problems No Social Work Triggers Is A Social Work Consult Needed No Mandate Report Filed No Explanation Of Identifying Problems PATIENT IS A 69-YEAR-OLD FEMALE ADMITTED FOR ACUTE RESPIRATORY FAILURE. PATIENT HAS PMHX OF ASTHMA, COPD, GERD, THYROID DISEASE, AND RENAL DISEASE. Admitted From Care Home Facility Care Home Facility [facility] - [phone] Pre-Admission Level Of Functioning Status Total Care Level Of Functioning Comment PATIENT'S SON REPORTED THAT PATIENT IS BED-BOUND AND REQUIRES TOTAL ASSISTANCE WITH ADLS. Prior Resources/Services Used In Last 12 Months SNF Intermediate Care Prior DME Home Oxygen Hospital Bed Dialysis Hemodialysis Name And Phone Number of Dialysis Facility [facility] - [phone] ESRD Outpatient Days ESRD Outpatient Time 2:30PM Dialysis Comments PATIENT'S SON STATED THAT PATIENT RECEIVES DIALYSIS IN [place] BUT WAS UNSURE OF FACILITY. SW CONTACTED NICHOL FROM [facility] WHO STATED SHE WAS A PATIENT THERE. Patient Had Caregiver No Home Support No Caregiver Issues Financial Issues No Known Financial Issue Referral To The Financial Counselor Needed No Factors/Needs SNF/NH Placement Explanation And Or Other Factors Affecting/Possible DC Needs PATIENT IS FCI AND ON A BED HOLD. Pt/Rep Participated In Discharge Plan Yes Patient/Family Agress With Discharge Plan Yes Discharge Plan Comments TENTATIVE DISCHARGE PLAN IS FOR PATIENT TO RETURN TO [facility]. DC Plan Status Initiated Addendum: 12/01/19 at 1056 by Yuniel SHARP SW CONTACTED PATIENT'S SON SACHIN TABARES [phone] TO FOLLOW UP WITH FAMILY. JUNIOR LEFT VM.
--- NOTE | 2019-11-24 09:31 | NUR ---
PER AWILDA WOODS NURSE, PT'S AUTOMATIC MOUNTER IS DR SYDNEY HATCH, NOT STAFF HERE, DR COLLAZO IS SOCIOLOGY TEACHER FOR DR MCMANUS'S GROUP PAGED.
--- NOTE | 2019-11-24 10:19 | NUR ---
DR PATEL AT BEDSIDE
--- NOTE | 2019-11-24 10:23 | NUR ---
DR LOWRY AT BEDSIDE
--- NOTE | 2019-11-24 10:25 | NUR ---
PER DR PATEL, PT'S REGULAR FITTER AND TURNER IS DR RICH'S GROUP, DR CALLOWAY PAGED AT THIS TIME
--- NOTE | 2019-11-24 10:30 | NUR ---
PT. ADMITTED WITH LOW MORGAN SCALE AT RISK WILL CONTINUE TO FOLLOW PRESSURE ULCER PREVENTION INTERVENTIONS. INTERTRIGO WITH MULTIPLE RED LINES TO LOWER ABDOMINAL FOLDS AND GROINS MOISTURE ASSOCIATED DERMATITIS TO R/L MEDIAL THIGHS, SUPERFICIAL EROSIONS RECOMMENDATIONS: -CLEANSE LOWER ABDOMINAL FOLDS AND GROINS WITH SOAP AND WATER, PAT DRY AND DUST NYSTATIN POWDERS BID AND COMBINATION SAW OPERATOR - CLEANSE R/L INNER THIGHS WITH SOAP AND WATER, PAT DRY AND APPLY THIN LAYER OF Z GUARD BID AND PRN IF SOILING -OFFLOAD BILATERAL HEELS BY PLACING PILLOWS UNDER CALVES UNLESS OTHERWISE CONTRAINDICATED -PRESSURE REDISTRIBUTION SURFACE THERAPY -TURN AND REPOSITION Q2H, OFFLOAD SACRALCOCCYX BY TURNING RIGHT AND LEFT -CONTINUE TO FOLLOW RD RECOMMENDATIONS ALL ABOVE RECOMMENDATIONS DISCUSSED WITH PRIMARY RN. PLEASE CONTACT WOUND CARE NURSE FOR ANY QUESTION AND CHANGE OF WOUND CONDITION.
--- NOTE | 2019-11-24 11:05 | NUR ---
DR CALLOWAY CALLED BACK, NOTIFIED OF CONSULTATION
--- NOTE | 2019-11-24 11:08 | NUR ---
PICC LINE NURSE AT BEDSIDE.
--- NOTE | 2019-11-24 11:46 | NUR ---
11/24/19 RD INITIAL ASSESSMENT COMPLETED PLEASE REFER TO NUTRITION ASSESSMENT UNDER CARE ACTIVITY FOR ESTIMATED NUTRITIONAL NEEDS. 1. RECOMMEND NEPRO 1.8 @ 35 ML/HR X 24 HR. START AT 10 ML/HR, INCREASE BY 10ML/HR Q4H -PROVIDES 1512 KCAL AND 68 GM OF PROTEIN PER DAY, WHICH PROVIDES 100% OF KCAL AND PROTEIN NEEDS. 2. RECOMMEND FREE WATER FLUSH OF [address] TO FOLLOW-UP 2-3 DAYS, HIGH RISK QUINTON NUNEZ RD
--- NOTE | 2019-11-24 12:11 | NUR ---
VAP ORAL CARE PROVIDED. PT TEMPERATURE 98.0 TEMPORALLY. WILL CONTINUE TO MONITOR.
[2019-11-24] MEDS: PIPERACILLIN/TAZOBACTAM 2.25 GM in DEXTROSE 5% 50 ML IV SCH ×2 (12:39→21:58)
[2019-11-24] MEDS: Z-GUARD PASTE TP SCH (13:00)
[2019-11-24] MEDS ORDERED: Z-GUARD PASTE TP SCH (13:00)
[2019-11-24] MEDS: NYSTATIN POW 100 MU/GM 15 GM BTL TP SCH (13:00)
--- NOTE | 2019-11-24 13:15 | NUR ---
MEDICATIONS ADMINISTERED PER ORDER. PT REPOSITIONED AND SUCTIONED. WILL CONTINUE TO MONITOR.
--- NOTE | 2019-11-24 13:23 | NUR ---
SPOKE TO DR. PARK ABOUT TUBE FEEDING RECOMMENDATIONS. DR. PARK APPROVED.
--- NOTE | 2019-11-24 14:04 | NUR ---
HHN TX NOT GIVEN DUE TO RT IN ER FOR CODE BLUE
[2019-11-24] MEDS ORDERED: VANCOMYCIN PER PHARMACY MC PRN (15:35)
--- NOTE | 2019-11-24 19:00 | NUR ---
HANDOFF GIVEN TO AUTO WASHER RN FOR CONTINUITY OF CARE.
--- NOTE | 2019-11-24 19:15 | NUR ---
1500 ML OUT PER IMCU SPECIALIST JONES.
--- NOTE | 2019-11-24 19:15 | NUR ---
RECEIEVED REPORT FROM STEPHANIE RN, PT SEDATED RASS -3 ETT TO VENT AC/PC FIO2 80% RR 25 PEEP 5, PT HAS RIGHT UPPER ARM MIDLINE AND REJ, INFUSING LEVIPHED 4MG/HR AT 18 MCG/HR, MORPHINE AT 1 MG/HR, VERSED AT 1 MG/HR, LUNG SOUNDS COARSE, S1 AND S2 HEART SOUNDS HEARD, PULSES PALPABLE UPPER AND LOWER EXTREMITIES, BOWEL SOUNDS ACTIVE, PT HAS FOELY CATHETER IN PLACE DRAINING CLEAR YELLOW URINE, PT CURRENTLY RECEIVING DIALYSIS WITH DRIVER LICENSE REVIEWING OFFICER AT BEDSIDE, SAFETY PROTOCOLS IN PLACE WILL CONTINUE TO MONITOR PT
[2019-11-24] MEDS ORDERED: VANCOMYCIN 1,000 MG VIAL ONE (19:55)
[2019-11-24] MEDS ORDERED: VANCOMYCIN 1,000 MG in NACL 0.9% 250 ML IV ONE (20:00)
[2019-11-24] MEDS ORDERED: CRUSHER, PILL MC ONE (20:26)
[2019-11-24] MEDS: ATORVASTATIN 20 MG TAB PO SCH (20:51)
--- NOTE | 2019-11-24 22:04 | NUR ---
ALL PT MEDS GIVEN, PT REPOSITIONED NO SIGNS OF DISTRESS ORAL CARE GIVEN WILL CONTINUE TO MONITOR PT
[2019-11-25] VITALS (96 sets, daily range): BP systolic 87–150; BP diastolic 34–83
[2019-11-25] MEDS: NOREPINEPHRINE 4 MG in DEXTROSE 5% 250 ML IV PRN ×2 (00:30→09:55)
--- NOTE | 2019-11-25 00:35 | NUR ---
PT REPOSITIONED IN BED NO SIGNS OF DISTRESS WILL CONTINUE TO MONITOR PT
[2019-11-25] MEDS: Z-GUARD PASTE TP SCH ×2 (01:00→12:59)
[2019-11-25] MEDS: NYSTATIN POW 100 MU/GM 15 GM BTL TP SCH ×2 (01:00→12:59)
[2019-11-25] MEDS: ALBUTEROL SULFATE/IPRATROPIU 3 ML SOL IH SCH ×4 (01:10→19:11)
[2019-11-25 04:24] LABS: BASOPHILS % (AUTO) 0.1 % (0.0-2.0); EOSINOPHILS % (AUTO) 0.1 % (0.0-4.0); HEMATOCRIT 29.7 % (36-48); HEMOGLOBIN 9.2 g/dL (12.0-16.0); LYMPHOCYTES % (AUTO) 6.9 % (20.5-51.1); MEAN CORPUSCULAR HEMOGLOBIN 24 pg (27-31); MEAN CORPUSCULAR HGB CONC 31 g/dL (33-37); MEAN CORPUSCULAR VOLUME 78.9 fL (80-94); MONOCYTES # (AUTO) 0.7 K/uL (0.8-1.0); MONOCYTES % (AUTO) 5.2 % (1.7-9.3); NEUTROPHILS # (AUTO) 12.5 K/uL (1.8-7.7); NEUTROPHILS % (AUTO) 87.7 % (42.2-75.2); PLATELET COUNT (AUTO) 219 K/uL (140-450); RED BLOOD CELL COUNT(AUTO) 3.77 MIL/uL (4.20-5.40); RED CELL DISTRIBUTION WIDTH 15.5 % (11.6-13.7); WHITE BLOOD COUNT (AUTO) 14.3 K/uL (4.8-10.8)
[2019-11-25 04:37] LABS: ANION GAP 12.5 (8-16); CARBON DIOXIDE 28.2 mmol/L (21-32); CREATININE 1.7 mg/dL (0.6-1.3); POTASSIUM 3.7 mmol/L (3.5-5.1)
--- NOTE | 2019-11-25 05:15 | NUR ---
PT MEDS GIVEN PT REPOSITIONED, BED BATH GIVEN, ORAL CARE PROVIDED NO SIGNS OF DISTRESS WILL CONTINUE TO MONITOR PT
[2019-11-25] MEDS: PIPERACILLIN/TAZOBACTAM 2.25 GM in DEXTROSE 5% 50 ML IV SCH ×3 (05:25→20:33)
[2019-11-25] MEDS: LEVOTHYROXINE 0.05 MG TAB PO SCH (06:00)
[2019-11-25 06:07] LABS: HEPATITIS A ANTIBODY IGM Negative (Negative); HEPATITIS B CORE AB TOTAL Negative (Negative); HEPATITIS B SURFACE ANTIBODY Non Reactive (.); HEPATITIS B SURFACE ANTIGEN Negative (Negative)
--- NOTE | 2019-11-25 07:00 | NUR ---
RECIVED PT ON VENT WITH SETTINGS CHARTED BREATH SOUNDS PRESENT BILAT SXN PT WITH BLOOD TINGEG SECS ETT SECURE 21 CM GUM LINE AMBU BAG BEDSIDE VENT PLUGGED INTO RED OUTLET WILL CONT TO MONITOR PT ON VENT
--- NOTE | 2019-11-25 07:00 | NUR ---
RECIVED PT ON VENT WITH SETTINGS CHARTED BREATH SOUNDS PRESENT BILAT CLEAR SXN PT WITH MIN AMT OFF WHITE SECS ETT TUBE SECURRE 24 CM UM LINE AMBU BAG BEDSIDE VENT PLUGGED INTO RED OUTLET
[2019-11-25] MEDS: METOPROLOL 25 MG TAB PO SCH ×2 (08:27→20:41)
[2019-11-25] MEDS: DULoxetine 30 MG CAPDR PO SCH (08:27)
[2019-11-25] MEDS: amLODIPine 5 MG TAB PO SCH (08:27)
--- NOTE | 2019-11-25 08:30 | NUR ---
DECREASED RR TO [address] LOWRY
[2019-11-25] MEDS: PANTOPRAZOLE 40 MG INJ VIAL IVP SCH (09:54)
[2019-11-25] MEDS: predniSONE 20 MG TAB PO SCH (09:54)
[2019-11-25] MEDS: GABAPENTIN 300 MG CAP PO SCH ×2 (09:57→20:41)
[2019-11-25] MEDS: SERTRALINE 50 MG TAB PO SCH (09:57)
[2019-11-25 12:58] LABS: T4 (THYROXINE) 4.6 ug/dL (4.5-12.0)
[2019-11-25] MEDS: MORPHINE SULFATE 50 MG in NACL 0.9% 45 ML IV SCH (15:45)
[2019-11-25] MEDS: MIDAZOLAM MDV 50 MG in NACL 0.9% 40 ML IV PRN (17:30)
--- NOTE | 2019-11-25 19:30 | NUR ---
RECIEVED ENDORSEMENT FROM DAY SHIFT RN, PT RASS -3, EYES PERRL 3CM, ETT TO VENT A/C PC FIO2 40 RATE 20 PEEP 5, LUNG CLEAR BILATERAL, SR ON MONITOR, PERIPHERAL PULSES PALPABLE, ABDOMEN SOFT AND ROUND, OGT TO TF NEPRO 35 ML/HR FWF 150ML Q4H, SKIN NON-TACT SKIN TEAR INGUINAL AND ABD FOLS, EXCORIATED PERIAREA AND R ARM WEEPING, SUELLEN MIDLINE, REJ 18 GAUGE, R SUBCLAVIAN HD CATH, RUNNING VERSED 2MG/HR, MORPHINE 2MG/HR, NS 5ML/HR, FC IN PLACE, LEVON URINE, PT SHOWING NO SIGNS OF ACUTE DISTRESS, WILL CONTINUE WITH CURRENT POC AND MONITORING
[2019-11-25] MEDS: ATORVASTATIN 20 MG TAB PO SCH (20:41)
--- NOTE | 2019-11-25 21:15 | NUR ---
ADMINISTERED 2100H MEDICATIONS, REPOSITIONED PT, ORAL CARE AND SUCTIONING PERFORMED, HUNG NEW BAG OF NEPRO 35ML/HR FWF 150ML Q4H, PT SHOWING NO SIGNS OF ACUTE DISTRESS, SIDE RAILS UP AND SAFETY MEASURES IN PLACE, WILL CONTINUE WITH CURRENT POC AND MONITORING
[2019-11-26] VITALS (71 sets, daily range): BP systolic 61–184; BP diastolic 37–91
[2019-11-26] MEDS: MEROPENEM 500 MG in NACL 0.9% 50 ML IV SCH (00:09)
--- NOTE | 2019-11-26 00:13 | NUR ---
REPOSITIONED PT, ORAL CARE AND SUCTIONING PERFORMED, PT AFREBRILE TEMP 96.5, PT SHOWING NO SIGNS OF ACUTE DISTRESS, FIBERGLASS BOAT BUILDER RAILS UP, BED LOW AND SAFETY MEASURES IN PLACE, WILL CONTINUE WITH CURRENT POC AND MONITORING
[2019-11-26] MEDS: NYSTATIN POW 100 MU/GM 15 GM BTL TP SCH ×2 (00:15→13:03)
[2019-11-26] MEDS: Z-GUARD PASTE TP SCH ×2 (00:16→13:03)
[2019-11-26] MEDS: ALBUTEROL SULFATE/IPRATROPIU 3 ML SOL IH SCH ×4 (01:40→19:16)
--- NOTE | 2019-11-26 02:17 | NUR ---
REPOSITIONED PT, ORAL CARE AND SUCTIONING PERFORMED, PT SHOWING NO SIGNS OF ACUTE DISTRESS, SAFETY MEASURES IN PLACE, WILL CONTINUE WITH CURRENT POC AND MONITORING
[2019-11-26] MEDS: PIPERACILLIN/TAZOBACTAM 2.25 GM in DEXTROSE 5% 50 ML IV SCH ×3 (04:40→21:25)
--- NOTE | 2019-11-26 05:01 | NUR ---
REPOSITIONED PT, ORAL CARE AND SUCTIONING, CROUCH CARE PROVIDEDM, AM CARE GIVEN, HUNG NEW BAG OF ZOSYN, PT SHOWING NO SIGNS OF ACUTE DISTRESS, SIDE RAILS UP AND SAFETY MEASURES IN PLACE, WILL CONTINUE WITH CURRENT POC AND MONITORING
[2019-11-26 05:21] LABS: BASOPHILS % (AUTO) 0.1 % (0.0-2.0); EOSINOPHILS % (AUTO) 0.1 % (0.0-4.0); HEMATOCRIT 26.9 % (36-48); HEMOGLOBIN 8.6 g/dL (12.0-16.0); LYMPHOCYTES # (AUTO) 0.7 K/uL (2.5-16.5); LYMPHOCYTES % (AUTO) 6.7 % (20.5-51.1); MEAN CORPUSCULAR HEMOGLOBIN 25 pg (27-31); MEAN CORPUSCULAR HGB CONC 32 g/dL (33-37); MEAN CORPUSCULAR VOLUME 78.2 fL (80-94); MONOCYTES # (AUTO) 0.3 K/uL (0.8-1.0); MONOCYTES % (AUTO) 3.4 % (1.7-9.3); NEUTROPHILS # (AUTO) 8.8 K/uL (1.8-7.7); NEUTROPHILS % (AUTO) 89.7 % (42.2-75.2); PLATELET COUNT (AUTO) 190 K/uL (140-450); RED BLOOD CELL COUNT(AUTO) 3.44 MIL/uL (4.20-5.40); RED CELL DISTRIBUTION WIDTH 15.4 % (11.6-13.7); WHITE BLOOD COUNT (AUTO) 9.8 K/uL (4.8-10.8)
[2019-11-26] MEDS: LEVOTHYROXINE 0.05 MG TAB PO SCH (05:35)
[2019-11-26 05:49] LABS: ANION GAP 11.8 (8-16); CARBON DIOXIDE 27.1 mmol/L (21-32); CREATININE 2.3 mg/dL (0.6-1.3); POTASSIUM 3.9 mmol/L (3.5-5.1)
--- NOTE | 2019-11-26 07:04 | NUR ---
ENDORSED TO DAY SHIFT RN FOR CONTINUITY OF CARE
--- NOTE | 2019-11-26 07:04 | NUR ---
RECEIVED INTUBATED PT WITH A 7.5 ETT SECURED @21 TEETH/GUM ON VENT. SETTINGS PC Pinsp30, R20, PEEP 5 AND FIO2 30%. PT SEDATED AT THIS TIME NOT IN ANY DISTRESS. VENT IS PLUGGED INTO A RED OUTLET WITH ALARMS ON AND FUNCTIONING. AMBU BAG IS PRESENT NEAR BEDSIDE. WILL CONTINUE TO MONITOR.
[2019-11-26] MEDS: DULoxetine 30 MG CAPDR PO SCH (08:09)
[2019-11-26] MEDS: METOPROLOL 25 MG TAB PO SCH ×2 (08:09→20:26)
--- NOTE | 2019-11-26 08:42 | NUR ---
ABG RESULTS GIVEN TO
[2019-11-26] MEDS: amLODIPine 5 MG TAB PO SCH (09:00)
--- NOTE | 2019-11-26 09:25 | NUR ---
PT PLACED SBT FOR 1 HOUR PER ANY CPAP 5 PS 10 AND FIO2 30%. PT HAS BEEN OFF OF SEDATION PER ICU NURSE, PT OPENS EYES AND ABLE TO FOLLOW SIMPLE COMMANDS. WILL CONTINUE TO MONITOR.
--- NOTE | 2019-11-26 09:39 | NUR ---
PT PLACED BACK ON DOCUMENTED VENT SETTINGS. PT DIDN'T TOLERATED SBT PT BEGAN TO FALL BACK TO SLEEP AND VT ONLY VARYING FROM 190-240 AND RR/VE LOW. NIF [id number] , VC 250 ML. WILL TRY SBT AT A LATER TIME WHEN PT IS MORE ALERT/AWAKE. NURSE MADE AWARE.
[2019-11-26] MEDS: GABAPENTIN 300 MG CAP PO SCH ×2 (09:59→20:26)
[2019-11-26] MEDS: SERTRALINE 50 MG TAB PO SCH (09:59)
[2019-11-26] MEDS: PANTOPRAZOLE 40 MG INJ VIAL IVP SCH (09:59)
[2019-11-26] MEDS: predniSONE 20 MG TAB PO SCH (10:00)
--- NOTE | 2019-11-26 11:10 | NUR ---
PT TRIED AGAIN ON SBT PT OPENS EYES WHEN SPOKEN TO BUT THEN BECOMES DROWSY AND FALLS BACK TO SLEEP AND VT BECOMES IN ADEQUATE. SPO2 DROPS TO LOW 80%'S. NURSE MADE AWARE.
--- NOTE | 2019-11-26 13:52 | NUR ---
11/26/19 RD FOLLOW UP COMPLETED PLEASE REFER TO NUTRITION ASSESSMENT UNDER CARE ACTIVITY FOR ESTIMATED NUTRITIONAL NEEDS. 1. CONTINUE NEPRO 1.8 @ 35 ML/HR X 24 HR. START AT 10 ML/HR, INCREASE BY 10ML/HR Q4H -PROVIDES 1512 KCAL AND 68 GM OF PROTEIN PER DAY, WHICH PROVIDES 100% OF KCAL AND PROTEIN NEEDS. 2. CONTINUE FREE WATER FLUSH OF 150 ML Q4H 3. IF/WHEN PT IS EXTUBATED CONSIDER SWALLOW EVALUATION FOR PO INTAKE 4. RD TO FOLLOW-UP 2-3 DAYS, HIGH RISK QUINTON NUNEZ, GLORIA
--- NOTE | 2019-11-26 17:05 | NUR ---
ATTEMPTED TO PLACE PT AGAIN ON SBT DUE TO PT BEING MORE AWAKE. PT LASTED ABOUT TEN MINUTES BEFORE B/P AND HR INCREASED NURSE BEDSIDE AND AWARE. PT PLACED BACK ON DOCUMENTED VENT SETTINGS. VENT ALARMS ON AND FUNCTIONING.
[2019-11-26] MEDS ORDERED: LABETALOL 100 MG/20 ML VIAL IV SCH (17:19)
[2019-11-26] MEDS ORDERED: VANCOMYCIN 500 MG in NACL 0.9% 100 ML IV SCH (18:00)
--- NOTE | 2019-11-26 19:16 | NUR ---
RECEIVED PATIENT FROM DAY SHIFT ON PC 20,RR30,+5,30%. VENTILATOR PLUGGED INTO RED OUTLET. BMV AT BEDSIDE. ETT SECUED AT 22CM AT THE LIP. HHN TX GIVEN. ALARMS SETS. SET. B/S CLEAR AND DIMINISHED. WILL CONTINUE TO MONITOR
[2019-11-26] MEDS: MORPHINE SULFATE 50 MG in NACL 0.9% 45 ML IV SCH (19:50)
[2019-11-26] MEDS ORDERED: VANCOMYCIN 500 MG in DEXTROSE 5% 100 ML IV SCH (20:00)
--- NOTE | 2019-11-26 20:00 | NUR ---
RECEIVED REPORT FROM DAY SHIFT RN. PT ETT TO VENT A/C PC- FIO2-30%, RATE- 20, PEEP-5. RESPIRATION EVEN AND UNLABORED. ACCESSES ON THE RIGHT UPPER ARM MIDLINE, RIGHT EJ 18G, RIGHT CHEST TUNNELED CATH FOR DIALYSIS. SKIN WARM AND DRY. INCONTINENT DERMATITIS OBSERVED TO BILATERAL INNER THIGHS AND JESUS AREA, MULTIPLE SCABS ON THE RIGHT ARM. PT ON MORPHINE @ 2MG/HR. RASS -3. ABDOMEN SOFT, NON TENDER. CROUCH CATHETER INTACT AND PATENT. BED IN LOWEST POSITION, SIDE RAILS UP. ALL SAFETY MEASURES IN PLACE. WILL CONTINUE TO MONITOR PT.
[2019-11-26] MEDS: ATORVASTATIN 20 MG TAB PO SCH (20:26)
--- NOTE | 2019-11-26 22:10 | NUR ---
PRESSURE AREAS OFF LOADED. NO RESPIRATORY DISTRESS OBSERVED. WILL CONTINUE TO MONITOR PT.
[2019-11-26] MEDS ORDERED: MEROPENEM 500 MG VIAL IV ONE (23:42)
[2019-11-27] VITALS (103 sets, daily range): BP systolic 98–197; BP diastolic 22–97
--- NOTE | 2019-11-27 | NUR ---
TURNED AND REPOSITIONED PT. NO DISTRESS NOTED. FLACC 0. RASS -3. WILL CONTINUE TO MONITOR.
[2019-11-27] MEDS: Z-GUARD PASTE TP SCH ×2 (01:07→12:44)
[2019-11-27] MEDS: NYSTATIN POW 100 MU/GM 15 GM BTL TP SCH ×2 (01:07→12:43)
[2019-11-27] MEDS: ALBUTEROL SULFATE/IPRATROPIU 3 ML SOL IH SCH ×4 (01:19→19:30)
[2019-11-27] MEDS: LEVOTHYROXINE 0.05 MG TAB PO SCH (06:51)
--- NOTE | 2019-11-27 07:15 | NUR ---
HANDOFF FROM SHIFT SUPERVISOR RN RN. PT IS INTUBATED WITH ETT TO VENT, ACPC, FIO2 30%, R 20, AND PEEP OF 5. PT HAS ACCESS AT R SUBCLAVIAN FOR HEMODIALYSIS, A SUELLEN MIDLINE, AND A R EJ 18 G. PT IS ON MORPHINE RUNNING AT 3 MG/HR. PT HAS OG TUBE WITH NEPRO RUNNING AT 35 ML/HR, WITH FREE WATER FLUSH OF 150 ML Q 4HR. CROUCH CATHETER IS IN PLACE. HOB IS AT 30 DEG WITH BED IN LOW LOCKED POSITION. WILL CONTINUE TO MONITOR.
--- NOTE | 2019-11-27 07:31 | NUR ---
RECEIVED ON A [employer] R860 VENTILATOR PLUGGED INTO RED OUTLET TOLERATING WELL WITHOUT ADVERSE REACTIONS NOTED TO AN ENDOTRACHEAL TUBE #7.5 SECURED AT 24cm WITH AN ANCHOR FAST CUFF PRESSURE CHECKED NOTED AMBU BAG AT BEDSIDE ENDOTRACHEAL SUCTION FOR LARGE THICK PALE YELLOW SECRETIONS
--- NOTE | 2019-11-27 07:58 | NUR ---
DR. JERRY DUPONT AT BEDSIDE MD CHANGED VENTILATOR MODE TO CPAP PEEP 5 PS 10 NEW ORDER: IF TOLERATED ABG AFTER 1 HOUR
--- NOTE | 2019-11-27 08:00 | NUR ---
DR. DUPONT AT BEDSIDE TO SEE PT. PER DR. DUPONT'S ORDERS, MORPHINE HELD AND CPAP TRAILS BEGUN. WILL CONTINUE TO MONITOR.
[2019-11-27] MEDS: GABAPENTIN 300 MG CAP PO SCH (08:19)
[2019-11-27] MEDS: SERTRALINE 50 MG TAB PO SCH (08:19)
[2019-11-27] MEDS: predniSONE 20 MG TAB PO SCH (08:19)
[2019-11-27] MEDS: METOPROLOL 25 MG TAB PO SCH ×2 (08:19→21:00)
[2019-11-27] MEDS: amLODIPine 5 MG TAB PO SCH (08:19)
[2019-11-27] MEDS: PANTOPRAZOLE 40 MG INJ VIAL IVP SCH (08:20)
--- NOTE | 2019-11-27 08:51 | NUR ---
PT DESAT TO 74% WHILE ON CPAP TRIALS, RT CALLED TO BEDSIDE. ACPC MODE ON VENTILATOR RESUMED WITH 100% FIO2. MORPHINE RESTARTED.
--- NOTE | 2019-11-27 08:56 | NUR ---
CALLED TO ICU 1 FOR PT DESAT TO 75% CHRISTINA HOU AT BEDSIDE INCREASED FIO2 TO 100% FOR TWO MINUTES AND O2 SAT WENT TO 95% THEN PT STARTED TO DESAT AGAIN AND I INCREASED FIO2 TO 100% ON VENT AND CHANGED PT BACK TO AC MODE. PT ONLY LASTED ON CPAP MODE FOR 50 MINUTES
[2019-11-27] MEDS: DULoxetine 30 MG CAPDR PO SCH (09:00)
[2019-11-27] MEDS: ALBUTEROL SULFATE/IPRATROPIU 3 ML SOL IH PRN (09:20)
--- NOTE | 2019-11-27 09:20 | NUR ---
SHALLOW CHEST RISE BREATH SOUNDS COARSE RHONCHI AND WHEEZE BILATERAL ENDOTRACHEAL SUCTION FOR MODERATE THICK PALE YELLOW SECRETIONS HHN PRN THERAPY GIVEN AT THIS TIME SATURATION 100% ON FIO2 OF 100% POST HHN THERAPY DECREASED FIO2 TO 40% INCREASED PEEP TO 8 cmH2O RN NOTIFIED
--- NOTE | 2019-11-27 09:31 | NUR ---
MEDICATIONS ADMINISTERED PER ORDER. PT TOLERATED WELL. CHG BATH, CROUCH CARE, AND VAP ORAL CARE PROVIDED. PT REPOSITIONED. 5 ML RESIDUAL FROM OG TUBE FEEDING. TEMPERATURE 97.9. WILL CONTINUE TO MONITOR.
--- NOTE | 2019-11-27 09:45 | NUR ---
RT PETER AT BEDSIDE DUE TO HIGH PEAK ALARM, PER RT, FIO2 TO 40%, PEEP TO 8. WILL CONTINUE TO MONITOR.
[2019-11-27] MEDS ORDERED: VANCOMYCIN 1,000 MG in DEXTROSE 5% 250 ML IV SCH (11:30)
--- NOTE | 2019-11-27 11:40 | NUR ---
RESTING WELL WITH NO EVIDENCE OF SOB NOTED GOOD CHEST RISE
--- NOTE | 2019-11-27 12:44 | NUR ---
MEDICATIONS ADMINISTERED PER ORDER. PT TOLERATED WELL. VAP ORAL CARE PROVIDED. TEMPERATURE 98.8 AXILLARY. WILL CONTINUE TO MONITOR.
--- NOTE | 2019-11-27 13:13 | NUR ---
NO RESPIRATORY DISTRESS NOTED GOOD CHEST RISE Vt IMPROVEMENT EQUAL OR GREATER THAN 8 ml/kg ENDOTRACHEAL SUCTION FOR MODERATE THICK YELLOW SECRETIONS AIRWAY PATENT Addendum: 11/27/19 at 1334 by Jeff Rodriguez RT EXPIRATORY RATIO 3.3 OR GREATER INCREASED I/TIME TO 0.70 SEC
--- NOTE | 2019-11-27 13:57 | NUR ---
DR. GUERRERO AT BEDSIDE SEEING PT.
--- NOTE | 2019-11-27 15:57 | NUR ---
RESTING WELL EQUAL CHEST RISE
--- NOTE | 2019-11-27 16:57 | NUR ---
VAP ORAL CARE PROVIDED. PT REPOSITIONED. TEMPERATURE 99.6 AXILLARY. WILL CONTINUE TO MONITOR.
[2019-11-27] MEDS: MORPHINE SULFATE 50 MG in NACL 0.9% 45 ML IV SCH (17:17)
--- NOTE | 2019-11-27 17:35 | NUR ---
STABLE EQUAL CHEST RISE ENDOTRACHEAL SUCTION FOR MODERATE THICK YELLOW SECRETIONS AIRWAY PATENT EXPIRATORY Vt GREATER THAN 8 ml/kg WITH PEAK PRESSURE MAINTAINING AT EQUAL/GREATER THAN 40 cmH2O DECREASED Pinsp TO 28 cmH2O PEAK PRESSURE DECREASED TO 37-38 cmH2O
--- NOTE | 2019-11-27 19:15 | NUR ---
HANDOFF GIVEN TO TURBOGENERATOR OPERATOR RN FOR CONTINUITY OF CARE.
--- NOTE | 2019-11-27 19:20 | NUR ---
RECEIVED REPORT FROM STEPHANIE RN PT ETT TO VENT AC/PC FIO2 40% RR 20 PEEP 8, LUNG SOUNDS CLEAR PT SEDATED RASS -3 ON MORPHINE AT 3MG/HR, PT HAS RIGHT SUBCLAVIAN HD PORT, SUELLEN MIDLINE, S1 AND S2 HEART SOUNDS HEARD, PULSES PALPABLE UPPER AND LOWER EXTREMITIES, PT HAS OGT TO FEEDING NEPRO 35 ML/HR FWF 150 Q4H, BOWEL SOUNDS ACTIVE, CROUCH CATHETER IN PLACE DRAINING CLEAR YELLOW URINE, NO SIGNS OF DISTRESS SAFETY PROTOCOLS IN PLACE, WILL CONTINUE TO MONITOR PT
--- NOTE | 2019-11-27 19:30 | NUR ---
RECEIVED PATIENT FROM DAY SHIFT ON PC 28,RR 20, PEEP 8,40%. VENTILATOR PLUGGED INTO RED OUTLET. BMV AT BEDSIDE.ETT SECURED. ALARMS SETS. B/S COARSE THROUGHOUT. HHN TX GIVEN VIA INLINE. SX SCANT AMOUNT OF THICK YELLOW SECRETION. NO RESPIRATORY DISTRESS NOTED. WILL CONTINUE TO MONITOR
[2019-11-27] MEDS: ATORVASTATIN 20 MG TAB PO SCH (21:05)
[2019-11-27] MEDS: ZOLPIDEM 5 MG TAB PO PRN (21:06)
--- NOTE | 2019-11-27 21:11 | NUR ---
PT MEDS GIVEN, PT REPOSITIONED IN BED, SWEEPER DRIVER DOCTOR CALLED FOR PT HR 60-65BPM INFORMED HIM HR DROPPED EARLIER IN THE DAY RECEIVED ORDERS TO HOLD METOPROLOL FOR THIS DOSE
[2019-11-27] MEDS: MEROPENEM 500 MG in NACL 0.9% 50 ML IV SCH (21:20)
[2019-11-28] VITALS (83 sets, daily range): BP systolic 104–215; BP diastolic 34–109
--- NOTE | 2019-11-28 00:08 | NUR ---
PT REPOSITIONED IN BED, ORAL CARE PROVIDED, NO SIGNS OF DISTRESS OBSERVED WILL CONTINUE TO MONITOR PT
[2019-11-28] MEDS: NYSTATIN POW 100 MU/GM 15 GM BTL TP SCH ×2 (00:32→12:17)
[2019-11-28] MEDS: Z-GUARD PASTE TP SCH ×2 (00:32→12:18)
[2019-11-28] MEDS: ALBUTEROL SULFATE/IPRATROPIU 3 ML SOL IH SCH ×4 (01:36→20:07)
[2019-11-28] MEDS: METOPROLOL 25 MG TAB PO SCH ×3 (04:30→20:30)
--- NOTE | 2019-11-28 05:00 | NUR ---
BED BATH GIVEN, ORAL CARE PROVIDED, CROUCH CARE PROVIDED, NEW FEEDING HUNG, LINEN CHANGED, CENTRAL LINE DRESSING WAS SATURATED AND REPLACE, REJ REMOVED
[2019-11-28] MEDS: LEVOTHYROXINE 0.05 MG TAB PO SCH (05:45)
--- NOTE | 2019-11-28 05:46 | NUR ---
DR. MCKEON AT PT BEDSIDE
[2019-11-28 06:03] LABS: ANION GAP 14.4 (8-16); CARBON DIOXIDE 24.9 mmol/L (21-32); CREATININE 2.7 mg/dL (0.6-1.3); POTASSIUM 4.3 mmol/L (3.5-5.1)
[2019-11-28 06:11] LABS: BASOPHILS % (AUTO) 0.3 % (0.0-2.0); EOSINOPHILS % (AUTO) 0.1 % (0.0-4.0); HEMOGLOBIN 8.6 g/dL (12.0-16.0); LYMPHOCYTES # (AUTO) 0.7 K/uL (2.5-16.5); MEAN CORPUSCULAR HEMOGLOBIN 25 pg (27-31); MEAN CORPUSCULAR HGB CONC 32 g/dL (33-37); MEAN CORPUSCULAR VOLUME 78.1 fL (80-94); MONOCYTES # (AUTO) 0.5 K/uL (0.8-1.0); MONOCYTES % (AUTO) 4.8 % (1.7-9.3); NEUTROPHILS # (AUTO) 8.6 K/uL (1.8-7.7); PLATELET COUNT (AUTO) 225 K/uL (140-450); RED BLOOD CELL COUNT(AUTO) 3.45 MIL/uL (4.20-5.40); RED CELL DISTRIBUTION WIDTH 15.5 % (11.6-13.7); WHITE BLOOD COUNT (AUTO) 9.7 K/uL (4.8-10.8)
[2019-11-28 06:22] LABS: MAGNESIUM 1.9 mg/dL (1.8-2.4); PHOSPHORUS 4.5 mg/dL (2.5-4.9)
[2019-11-28 06:51] LABS: NEUTROPHILS % (AUTO) 87.8 % (42.2-75.2)
--- NOTE | 2019-11-28 07:15 | NUR ---
HANDOFF RECEIVED FROM WATCH CASE POLISHER RN. PT IS RASS -3, WITH MORPHINE RUNNING AT 3 MG/HR. PT IS ON ETT TO VENT, ACPD FIO2 40%, PEEP 8, R 20. PT HAS OG TUBE RUNNING WITH NEPRO AT 30 ML/HR, FWF 150 ML Q4HR. FOR ACCESS, PT HAS R UA MIDLINE AND R SUBCLAVIAN TUNNEL CATHETER FOR HEMODIALYSIS. CROUCH CATHETER IS IN PLACE. HOB TO 30 DEG, WITH BED IN LOW LOCKED POSITION. WILL CONTINUE TO MONITOR PT.
--- NOTE | 2019-11-28 08:00 | NUR ---
RECEIVED ON A [employer] R860 VENTILATOR PLUGGED INTO RED OUTLET TOLERATING WELL WITHOUT COMPLICATIONS NOTED TO AN ENDOTRACHEAL TUBE #7.5 SECURED AT 21 cm TEETH/GUM LINE WITH AN ANCHOR FAST CUFF PRESSURE CHECKED NOTED AMBU BAG AT BEDSIDE LOC AWAKE STABLE GOOD CHEST RISE ENDOTRACHEAL SUCTION FOR LARGE THIN YELLOW SECRETIONS AIRWAY PATENT
[2019-11-28] MEDS: predniSONE 20 MG TAB PO SCH (08:02)
[2019-11-28] MEDS: PANTOPRAZOLE 40 MG INJ VIAL IVP SCH (08:02)
[2019-11-28] MEDS: SERTRALINE 50 MG TAB PO SCH (08:02)
--- NOTE | 2019-11-28 08:20 | NUR ---
FULL STACK SOFTWARE ENGINEER REQUEST FOR MORPHINE SULFATE VIA IV TO BE OFF TO FACILITATE CPAP WEANING PER OLAF/RN MORPHINE SULFATE OFF AT THIS TIME
--- NOTE | 2019-11-28 08:20 | NUR ---
MORPHINE DRIP HELD FOR WEANING PER RT PETER REQUEST. WILL CONTINUE TO MONITOR.
--- NOTE | 2019-11-28 08:46 | NUR ---
MEDICATIONS ADMINISTERED PER ORDER, METOPROLOL HELD DUE TO BRADYCARDIA. PT TOLERATED WELL. VAP ORAL CARE, CHG BATH, AND CROUCH CARE PROVIDED. PT REPOSITIONED. TEMPERATURE 98.7 AXILLARY. WILL CONTINUE TO MONITOR CLOSELY.
[2019-11-28] MEDS: DULoxetine 30 MG CAPDR PO SCH (08:49)
[2019-11-28] MEDS: CHLORHEXADINE GLUC 2% CLOTH TP SCH (08:49)
--- NOTE | 2019-11-28 09:20 | NUR ---
LOC AWAKE FOLLOWS WEED SPRAYER SIMPLE COMMANDS BREATH SOUNDS DIFFUSED RHONCHI BILATERAL ENDOTRACHEAL SUCTION FOR SMALL THIN YELLOW SECRETIONS AIRWAY PATENT PLACED ON CPAP PS 10 PEEP 5 PATIENT FAILED WITHIN 30 SECONDS CPAP ATTEMPTS X 3 Addendum: 11/28/19 at 1031 by Jeff Rodriguez RT HOB PLACED AT 35 DEGREES
--- NOTE | 2019-11-28 09:25 | NUR ---
DR. JERRY DUPONT AT BEDSIDE REVIEWED THE FOLLOWIN/11 MORPHINE SULFATE SEDATION OFF AT 0820; CPAP (PS 10 PEEP 5) TRIALS TODAY PATIENT FAILED WITHIN 30 SECONDS ATTEMPT X 3 PATIENT FAILURE TO TAKE NORMAL BREATH ONLY WITH PHYSICAL STIMULATION BREATH SOUNDS DIFFUSED RHONCHI BILATERAL PULMOARY SECRETIONS SMALL TO MODERATE SCATTERED THICK YELLOW SECRETIONS;;; 11/26 CPAP (PS 10 PEEP 5) TRIALS FAILED AT 50 MINS DUE TO DESCENDING SATURATION TO 71%; IN AM BREATH SOUNDS COARSE RHONCHI BILATERAL PULMONARY SECRETIONS OF LARGE THICK YELLOW SECRETIONS NEW ORDER CHANGE MODE TO SIMV WITH BACK UP RATE 8 NOTED IF TOLERATING AFTER 1 HOUR DRAW ABG THEN CONTINUE T/O DAY AND NOCS WEAN IN AM
--- NOTE | 2019-11-28 09:39 | NUR ---
CHANGED MODE TO SIMV NOTED OLAF/RN NOTIFIED GOOD CHEST RISE ENDOTRACHEAL SUCTION FOR SMALL THI YELLOW SECRETINS AIRWAY PATENT
--- NOTE | 2019-11-28 09:40 | NUR ---
PER RT SATINDER PT NOW ETT TO VENT SIMV MODE, SIV 18, VT 400, PEEP 5, YBE994%, PRESSURE SUPPORT 10. NO SIGNS OF RESPIRATORY DISTRESS NOTED AT THIS TIME. WILL CONTINUE TO MONITOR.
--- NOTE | 2019-11-28 09:45 | NUR ---
DR. DUPONT AT BEDSIDE TO SEE PT.
[2019-11-28] MEDS: MUPIROCIN CA NASAL 2% 1GM TUBE NS SCH (09:51)
--- NOTE | 2019-11-28 11:06 | NUR ---
RESTING COMFORTABLY TOLERATING SIMV MODE NOTED GOOD EQUAL CHEST RISE POST ABG PUNCTURE ENDOTRACHEAL SUCTION FOR SMALL THIN YELLOW SECRETIONS AIRWAY PATENT
--- NOTE | 2019-11-28 11:11 | NUR ---
ABG COMPLETED PUNCTURE AT RIGHT RADIAL PRESSURE APPLIED NO EVIDENCE OF EXCESS BLEEDING OR HEMATOMA
--- NOTE | 2019-11-28 12:00 | NUR ---
MEDICATIONS ADMINISTERED PER ORDER. TEMPERATURE 98.4 AXILLARY. VAP ORAL CARE PROVIDED, PT REPOSITIONED. PT TOLERATED WELL. PT OPENS EYES WHEN IN ROOM, WILL NOD YES OR NO AND FOLLOW DIRECTIONS. SEDATION STILL HELD. NO SIGNS OF DISTRESS NOTED AT THIS TIME. WILL CONTINUE TO MONITOR
[2019-11-28] MEDS ORDERED: VANCOMYCIN 1,000 MG in DEXTROSE 5% 250 ML IV SCH (14:00)
--- NOTE | 2019-11-28 14:30 | NUR ---
MORPHINE DRIP FOR SEDATION RESTARTED DUE TO PT BECOMING AGITATED AND FIGHTING VENTILATOR. MORPHINE DRIP RUNNING AT 1 MG/ML NOW, WILL TITRATE NEEDED. WILL CONTINUE TO MONITOR.
--- NOTE | 2019-11-28 15:55 | NUR ---
DR. GUERRERO AT BEDSIDE TO SEE PT.
--- NOTE | 2019-11-28 15:58 | NUR ---
DR. STANLEY AT BEDSIDE TO SEE PT.
--- NOTE | 2019-11-28 16:08 | NUR ---
TOLERATING SIMV NOTED WELL NOTED GOOD CHEST RISE
--- NOTE | 2019-11-28 16:45 | NUR ---
PT DESAT TO 54%, GIVEN 100% FIO2, CALLED RT RAJAN TO BEDSIDE. GAVE METOPROLOL THAT HAD BEEN HELD THIS MORNING DUE TO BP BEING IN THE 200S. WILL CONTINUE TO MONITOR.
--- NOTE | 2019-11-28 16:45 | NUR ---
CLERK OPERATOR CALLED TO BEDSIDE PATIENT WITH DESCENDING SATURATION TO MID 50'S AND VT LESS THAN 250 ml BREATH SOUNDS COARSE RHONCHI BILATERAL ENDOTRACHEAL SUCTION X 2 FOR COPIOUS THICK YELLOW TO DARK BROWN SECRETIONS AIRWAY PATENT
--- NOTE | 2019-11-28 16:45 | NUR ---
PT. AWAKE BECAME AGITATED HR 111/MIN. BP 220/111 RT CALL TO BEDSIDE . DR. DUPONT WAS CALL.
[2019-11-28] MEDS ORDERED: PROPOFOL 1000 MG/100 ML PREMIX 100 ML IV PRN (16:50)
--- NOTE | 2019-11-28 16:50 | NUR ---
CALL BACK ORDERED TO START ON [id number] IV DRIP.
--- NOTE | 2019-11-28 16:55 | NUR ---
REMAINS ON SIMV NOTED EQUAL CHEST RISE WITH GOOD AERATION BILATERAL AIRWAY PATENT
[2019-11-28] MEDS ORDERED: PROPOFOL 1000 MG/100 ML PREMIX 100 ML IV ONE (16:56)
--- NOTE | 2019-11-28 17:27 | NUR ---
AMENDED "CAN CHANGE TO FULL NEEDED" = CAN CHANGE TO FULL VENTILATOR SUPPORT NEEDED
--- NOTE | 2019-11-28 17:27 | NUR ---
CALLED DR. JERRY DUPONT TO REVIEW PULMONARY STATUS POLICE RESERVES COMMANDER SUCTIONING X 2 FOR COPIOUS THICK YELLOW TO BROWN SECRETIONS ALSO REVIEWED ABG SAMPLE REPORT NEW ORDERS: OK TO ORDER MUCOMYST 1 ML/10% X 2 DAYS; CAN CHANGE TO FULL NEEDED
[2019-11-28] MEDS: MORPHINE SULFATE 50 MG in NACL 0.9% 45 ML IV SCH (18:41)
--- NOTE | 2019-11-28 19:00 | NUR ---
HANDOFF GIVEN TO CHICKEN TENDER RN FOR CONTINUITY OF CARE.
--- NOTE | 2019-11-28 19:30 | NUR ---
RECIEVED ENDORSEMENT FROM DAY SHIFT RN, PT SEDATED RASS -3, EYES CLOSED, PERRL 3CM, ETT TO VENT SIMVC CIV 18 FIO2 35% PEEP 5 TV 400, LUNGS COARSE BILATERAL, SB ON MONITOR, PERIPHERAL PULSES PALPABLE, ABD SOFT AND ROUND, SKIN WARM AND DRY TO TOUCH, AFREBRILE, OGT TO FEEDING NEPRO 35ML/HR FWF 150ML Q4H, CROUCH CATH IN PLACE, SOFT WRIST RESTRAINTS IN PLACE ON BUE, SKIN NON INTACT, SKIN TEAR ON R/L UNGUINAL AND ABD, INCONTINENT DERMATITIS ON THIGHS, L ARM SCABS AND R ARM WEEPING ON MIDLINE IV SITE, SUELLEN MIDLINE AND R SUBCLAVIAN HD CATH, RUNNING MORPHINE 5MCG/MIN, PROPOFOL 5 MCG/KG/MIN, NS 5MLS/HR, PT SHOWING NO SIGNS OF ACUTE DISTRESS, SIDE RAILS UP AND SAFETY MEASURES IN PLACE, WILL CONTINUE WITH CURRENT POC AND MONITORING
[2019-11-28] MEDS: ACETYLCYSTEINE 10% (100 MG/ML) 100 MG/ML VIAL INH SCH (20:08)
[2019-11-28] MEDS: ATORVASTATIN 20 MG TAB PO SCH (20:27)
--- NOTE | 2019-11-28 21:44 | NUR ---
REPOSITIONED PT, ORAL CARE AND SUCTIONING PERFORMED, ADMINSTERED 2100H MEDICATIONS PER ORDER, PT SHOWING NO SIGNS OF ACUTE DISTRESS, SIDE RAILS UP AND SAFETY MEASURES IN PLACE, WILL CONTINUE WITH CURRENT POC AND MONITORING
[2019-11-28] MEDS: MEROPENEM 500 MG in NACL 0.9% 50 ML IV SCH (21:49)
--- NOTE | 2019-11-28 23:57 | NUR ---
REPOSTIONED PT, ORAL CARE AND SUCTIONING PERFORMED, PT AFEBRILE, SHOWING NO SIGNS OF ACUTE DISTRESS, SIDE RAILS UP AND SAFETY MEASURES IN PLACE, WILL CONTINUE WITH CURRENT POC AND MONITORING
[2019-11-29] VITALS (96 sets, daily range): BP systolic 101–202; BP diastolic 37–106
[2019-11-29] MEDS: NYSTATIN POW 100 MU/GM 15 GM BTL TP SCH (00:04)
[2019-11-29] MEDS: Z-GUARD PASTE TP SCH ×2 (00:05→13:00)
[2019-11-29] MEDS: ACETYLCYSTEINE 10% (100 MG/ML) 100 MG/ML VIAL INH SCH ×4 (00:07→19:41)
[2019-11-29] MEDS: ALBUTEROL SULFATE/IPRATROPIU 3 ML SOL IH SCH ×4 (00:07→19:41)
--- NOTE | 2019-11-29 01:45 | NUR ---
REPOSITIONED PT, ORAL CARE AND SUCTIONING PERFORMED, PT SHOWING NO SIGNS OF ACUTE DISTRESS, SIDE RAILS UP AND SAFETY MEASURES IN PLACE, WILL CONTINUE WITH CURRENT POC AND MONITORING
--- NOTE | 2019-11-29 03:19 | NUR ---
HUNG NEW BOTTLE OF NEPRO 35 ML/HR FWF 150ML Q4H, PT SHOWING NO SIGNS OF ACUTE DISTRESS, SIDE RAILS UP AND SAFETY MEASURES IN PLACE, WILL CONTINUE WITH CURRENT POC AND MONITORING
[2019-11-29] MEDS: LEVOTHYROXINE 0.05 MG TAB PO SCH (05:36)
[2019-11-29 06:04] LABS: BASOPHILS % (AUTO) 0.2 % (0.0-2.0); EOSINOPHILS % (AUTO) 0.3 % (0.0-4.0); HEMATOCRIT 25.8 % (36-48); HEMOGLOBIN 8.3 g/dL (12.0-16.0); LYMPHOCYTES # (AUTO) 0.8 K/uL (2.5-16.5); MEAN CORPUSCULAR HEMOGLOBIN 25 pg (27-31); MEAN CORPUSCULAR HGB CONC 32 g/dL (33-37); MEAN CORPUSCULAR VOLUME 77.2 fL (80-94); MONOCYTES # (AUTO) 0.4 K/uL (0.8-1.0); MONOCYTES % (AUTO) 5.7 % (1.7-9.3); NEUTROPHILS # (AUTO) 6.4 K/uL (1.8-7.7); NEUTROPHILS % (AUTO) 83.8 % (42.2-75.2); PLATELET COUNT (AUTO) 230 K/uL (140-450); RED BLOOD CELL COUNT(AUTO) 3.34 MIL/uL (4.20-5.40); RED CELL DISTRIBUTION WIDTH 15.6 % (11.6-13.7); WHITE BLOOD COUNT (AUTO) 7.7 K/uL (4.8-10.8)
--- NOTE | 2019-11-29 06:23 | NUR ---
REPOSITIONED PT, ORAL CARE AND SUCTIONING PERFORMED, MORNING CARE GIVEN, ADMINISTERED 0630H MEDICATIONS, PT AFEBRILE, SHOWING NO SIGNS OF ACUTE DISTRESS, SIDE RAILS UP AND SAFETY MEASURES IN PLACE, WILL CONTINUE WITH CURRENT POC AND MONITORING
[2019-11-29 06:31] LABS: CARBON DIOXIDE 24.7 mmol/L (21-32); CREATININE 2.9 mg/dL (0.6-1.3); POTASSIUM 4.7 mmol/L (3.5-5.1)
[2019-11-29 06:54] LABS: MAGNESIUM 1.9 mg/dL (1.8-2.4); PHOSPHORUS 5.3 mg/dL (2.5-4.9)
--- NOTE | 2019-11-29 07:18 | NUR ---
RECEIVED ON A [employer] R860 VENTILATOR PLUGGED INTO RED OUTLET TOLERATING SIMV MODE WELL WITHOUT ADVERSE REACTIONS NOTED TO AN ENDOTRACHEAL TUBE #7.5 SECURED AT 21cm TEETH/GUM LINE WITH AN ANCHOR FAST CUFF PRESSURE CHECKED NOTED AMBU BAG AT BEDSIDE STABLE SEDATE RESTING COMFORTABLY WITHOUT SOB NOTED EQUAL CHEST RISE ENDOTRACHEAL SUCTION FOR LARGE THICK YELLOW/BROWN SECRETIONS AIRWAY PATENT
--- NOTE | 2019-11-29 07:23 | NUR ---
ENDORSED TO DAY SHIFT RN FOR CONTINUITY OF CARE
[2019-11-29] MEDS: DULoxetine 30 MG CAPDR PO SCH (07:54)
[2019-11-29] MEDS: METOPROLOL 25 MG TAB PO SCH ×2 (07:55→21:00)
[2019-11-29] MEDS: PANTOPRAZOLE 40 MG INJ VIAL IVP SCH (08:57)
[2019-11-29] MEDS: SERTRALINE 50 MG TAB PO SCH (08:58)
[2019-11-29] MEDS: predniSONE 20 MG TAB PO SCH (08:58)
[2019-11-29] MEDS: CHLORHEXADINE GLUC 2% CLOTH TP SCH (09:00)
[2019-11-29] MEDS: MUPIROCIN CA NASAL 2% 1GM TUBE NS SCH (09:00)
--- NOTE | 2019-11-29 10:00 | NUR ---
STABLE SEDATED NO EVIDENCE OF RESPIRATORY DISTRESS NOTED GOOD CHEST RISE AIRWAY PATENT
--- NOTE | 2019-11-29 11:22 | NUR ---
SEDATED RESTING WELL EQUAL CHEST RISE ENDOTRACHEAL SUCTION FOR SMALL SEMI THICK PALE YELLOW SECRETIONS AIRWAY PATENT HEMODIALYSIS INITIATED UNABLE TO WEAN PATIENT AT THIS TIME
[2019-11-29] MEDS ORDERED: DEXMEDETOMIDINE HCL 200 MCG in NACL 0.9% 48 ML IV PRN (12:45)
--- NOTE | 2019-11-29 13:17 | NUR ---
11/29/[address] FOLLOW UP COMPLETED PLEASE REFER TO NUTRITION ASSESSMENT UNDER CARE ACTIVITY FOR ESTIMATED NUTRITIONAL NEEDS. 1. CONTINUE NEPRO 1.8 @ 35 ML/HR X 24 HR. START AT 10 ML/HR, INCREASE BY 10ML/HR Q4H -PROVIDES 1512 KCAL AND 68 GM OF PROTEIN PER DAY, WHICH PROVIDES 100% OF KCAL AND PROTEIN NEEDS. 2. RECOMMEND REDUCING FREE WATER FLUSH 100 ML Q4H 3. RECOMMEND PROSOURCE BID PER DAY -THIS WILL PROVIDE AN ADDITIONAL 120 KCAL AND [address] 4. RD TO FOLLOW-UP 2-3 DAYS, HIGH RISK QUINTON NUNEZ, RD
--- NOTE | 2019-11-29 13:20 | NUR ---
HEMODIALYSIS REMAINS IN PROGRESS VENTILATOR STATUS PRESENTING WITH INCREASED PEAK PRESSURE AT +50 cmH2O CHANGED MODE TO PRESSURE CONTROL NOTED SEDATED GOOD CHEST RISE ENDOTRACHEAL SUCTION FOR MODERATE THICK PALE YELLOW SECRETIONS WITH SMALL SCATTERED BLOOD STREAKS AIRWAY PATENT
--- NOTE | 2019-11-29 15:50 | NUR ---
CHART REVIEWED, IMMUNIZATION INFO UPDATED, PNA VAC 04/2019, FLU VAC 11/17/2019 PER [employer] DOCUMENTATIONS.
--- NOTE | 2019-11-29 15:54 | NUR ---
HEMODIALYSIS COMPLETED STABLE SEDATED RESTING WELL NO DISTRESS NOTED GOOD CHEST RISE RESUMED SIMV MODE NOTED
--- NOTE | 2019-11-29 17:20 | NUR ---
AWAKE AND ALERT ENDOTRACHEAL SUCTION FOR MODERATE SEMI THICK YELLOW SECRETIONS AIRWAY PATENT PLACED ON CPAP/SBT TRIALS NOTED
--- NOTE | 2019-11-29 17:37 | NUR ---
UPDATED DR. FIGUEROA ON PT CONDITION, ON PRECEDEX, PROPOFOL ON HOLD FOR SBT, TV AROUND 400ML, SPO2 HIGH 90S, RESPIRATORY RATE 18-24. INSTRUCTED TO KEEP PATIENT ON PRESSURE SUPPORT [id number] AND BACK TO AC TO REST OVERNIGHT. RT NOTIFIED.
--- NOTE | 2019-11-29 18:10 | NUR ---
RIGHT UPPER ARM MIDLINE DRESSING SOILED AND PEELING OFF, DRESSING CHANGED WITH STERILE TECHNIQUE, PT ROSARIO WELL, PT AWAKE, ALERT, HAND GESTURES TO REMOVE RESTRAINTS, PT UNABLE TO FOLLOW COMMANDS, REMOVED NGT EARLIER TODAY, EXPLAINED THAT RESTRAINTS SHOULD REMAIN IN PLACE FOR SAFE KEEPING OF MEDICAL TUBINGS, UNABLE TO ASSESS IF PT UNDERSTANDS, PT INTUBATED.
--- NOTE | 2019-11-29 19:15 | NUR ---
RECEIVED REPORT FROM [facility] NURSE, AT BEDSIDE, FOR CONTINUITY OF CARE. SEDATED TO RASS -3, PER MD ORDERS. PUPILS 3MM, BRISK, PERRL. ETT TO VENT, CURRENTLY ON CPAP TRIAL. TOLERATING WELL. LUNGS SOUNDS CLEAR, DIMINISHED AT BASES UPON AUSCULTATION. THICK YELLOW SECRETIONS WITH SOME SCANT BLOOD UPON SUCTIONING. GAG REFLEX INTACT. +S1, S2. SR ON MONITOR @ THIS TIME. RT SUBCLAVIAN HD CATH IN PLACE. NON-FUNCTIONAL AV SHUNT TO DINORAH IN PLACE. BOWEL SOUNDS ACTIVE X4. ABD SOFT, NON-DISTENDED. NO FEEDING TUBE IN PLACE AT THIS TIME. NEPRO ORDERED @ 35 ML/H WITH FWF @ 100 ML Q4H. WILL FOLLOW UP. RT UPPER ARM MIDLINE IN PLACE INFUSING PRECEDEX @ 0.4 MCG/KG/HR (7.71 ML/HR) (CONC:200 MCG/50ML) CROUCH IN PLACE DRAINING CLEAR, YELLOW-URINE TO GRAVITY. PEDAL PULSES PALPABLE. SKIN WARM AND DRY, NOT INTACT, SEE WOUND ASSESSMENT. [place]STATIN ORDER IN PROGRESS. CONTACT PRECAUTIONS REMAIN IN PLACE D/T ESBL OF URINE, MRSA OF NARES/SPUTUM. BED LOW AND LOCKED WITH HOB >30 DEGREES. WILL CONT TO MONITOR.
--- NOTE | 2019-11-29 20:30 | NUR ---
PT SWITCHED FROM CPAP TRIALS TO ACPC MODE, BY RT, AT THIS TIME. PRECEDEX HELD, PROPOFOL RESTARTED. PT TOLERATED WELL.
[2019-11-29] MEDS: ATORVASTATIN 20 MG TAB PO SCH (21:00)
[2019-11-29] MEDS: MEROPENEM 500 MG in NACL 0.9% 50 ML IV SCH (22:01)
[2019-11-30] VITALS (59 sets, daily range): BP systolic 100–201; BP diastolic 35–104
--- NOTE | 2019-11-30 | NUR ---
REPOSITIONED WITH PRESSURE AREAS OFFLOADED. VAP ORAL CARE PROVIDED. FLACC 0. RASS -3, PER MD ORDERS. BED LOW AND LOCKED WITH HOB >30 DEGREES. WILL CONT TO MONITOR.
[2019-11-30] MEDS: ACETYLCYSTEINE 10% (100 MG/ML) 100 MG/ML VIAL INH SCH ×2 (00:07→07:49)
[2019-11-30] MEDS: ALBUTEROL SULFATE/IPRATROPIU 3 ML SOL IH SCH ×4 (00:07→19:12)
[2019-11-30] MEDS: NYSTATIN POW 100 MU/GM 15 GM BTL TP SCH ×2 (00:49→13:45)
[2019-11-30] MEDS: Z-GUARD PASTE TP SCH ×2 (00:49→13:46)
--- NOTE | 2019-11-30 03:00 | NUR ---
BED BATH PROVIDED. PT TOLERATED WELL. WILL CONT TO MONITOR.
--- NOTE | 2019-11-30 05:32 | NUR ---
PT WAS RETURNED TO VC AFTER 2HR CPAP PER DR FIGUEROA PT TOLERATED WELL CURRENT VC SETTINGS VC 400 +5, f18, 30% ETT REMAINS SECURED AT 21CM AMBU AT BEDSIDE AND VENT PLUGGED INTO RED OUTLET
[2019-11-30] MEDS: LEVOTHYROXINE 0.05 MG TAB PO SCH (06:06)
[2019-11-30 07:13] LABS: BASOPHILS % (AUTO) 0.2 % (0.0-2.0); EOSINOPHILS # (AUTO) 0.1 K/uL (0-0.4); HEMATOCRIT 27.1 % (36-48); HEMOGLOBIN 8.6 g/dL (12.0-16.0); LYMPHOCYTES # (AUTO) 1.1 K/uL (2.5-16.5); LYMPHOCYTES % (AUTO) 12.3 % (20.5-51.1); MEAN CORPUSCULAR HEMOGLOBIN 25 pg (27-31); MEAN CORPUSCULAR HGB CONC 32 g/dL (33-37); MONOCYTES # (AUTO) 0.7 K/uL (0.8-1.0); MONOCYTES % (AUTO) 8.1 % (1.7-9.3); NEUTROPHILS # (AUTO) 6.8 K/uL (1.8-7.7); NEUTROPHILS % (AUTO) 78.4 % (42.2-75.2); PLATELET COUNT (AUTO) 263 K/uL (140-450); RED BLOOD CELL COUNT(AUTO) 3.51 MIL/uL (4.20-5.40); WHITE BLOOD COUNT (AUTO) 8.7 K/uL (4.8-10.8)
--- NOTE | 2019-11-30 07:49 | NUR ---
RECEIVED ON A [employer] R860 VENTILATOR PLUGGED INTO RED OUTLET TOLERATING WELL WITHOUT ADVERSE REACTIONS NOTED TO AN ENDOTRACHEAL TUBE #7.5 SECURED AT 21 cm TEETH/GUM LINE WITH ANCHOR FAST CUFF PRESSURE CHECKED NOTED AMBU BAG AT BEDSIDE SEDATED LOC AWAKE AND ALERT GOOD CHEST RISE ENDOTRACHEAL SUCTION FOR LARGE THICK YELLOW WITH BLOOD TINGE SECRETIONS AIRWAY PATENT
--- NOTE | 2019-11-30 08:10 | NUR ---
DECREASED RATE TO 16 TO FACILITATE SP Vt JUNIOR ADMINISTRATIVE ASSISTANT TO MONITOR
[2019-11-30 08:21] LABS: ANION GAP 11.9 (8-16); CARBON DIOXIDE 27.5 mmol/L (21-32); CREATININE 1.8 mg/dL (0.6-1.3); POTASSIUM 3.4 mmol/L (3.5-5.1)
[2019-11-30] MEDS: CHLORHEXADINE GLUC 2% CLOTH TP SCH (09:00)
[2019-11-30] MEDS: METOPROLOL 25 MG TAB PO SCH ×2 (09:00→21:15)
[2019-11-30] MEDS: DULoxetine 30 MG CAPDR PO SCH (09:00)
[2019-11-30] MEDS ORDERED: amLODIPine 5 MG TAB PO SCH (09:10)
--- NOTE | 2019-11-30 09:33 | NUR ---
RESTING COMFORTABLY WITHOUT EVIDENCE OF RESPIRATORY DISTRESS EQUAL CHEST RISE AIRWAY PATENT
--- NOTE | 2019-11-30 09:43 | NUR ---
RESUMED CPAP/SBT TRIALS NOTED TUBE KNITTER TO MONITOR GOOD CHEST RISE AND AERATION THROUGHOUT BILATERAL LUNG SIMEON AIRWAY PATENT KEARA/RN NOTIFIED BACK UP SETTINGS REVIEWED AND SET FOLLOWS: MODE AC RATE 16 VT 400 PEEP 5 FIO2 30%
[2019-11-30] MEDS: PANTOPRAZOLE 40 MG INJ VIAL IVP SCH (09:52)
[2019-11-30] MEDS: SERTRALINE 50 MG TAB PO SCH (09:54)
[2019-11-30] MEDS: predniSONE 20 MG TAB PO SCH (09:54)
[2019-11-30] MEDS: MUPIROCIN CA NASAL 2% 1GM TUBE NS SCH (10:00)
--- NOTE | 2019-11-30 11:20 | NUR ---
RESTING WELL TOLERATING CPAP/SBT TRIALS NOTED GOOD EQUAL CHEST RISE AIRWAY PATENT
--- NOTE | 2019-11-30 11:23 | NUR ---
DR. ARISTEO TAVAREZ AT BEDSIDE REVIEWED WITH MD CPAP/SBT TRIAL THIS AM, OXYGEN SATURATION, CXR 11/28 @ 2125, BREATH SOUNDS, CURRENT [facility] THERAPY FREQUENCY AND RESPIRATORY DRUGS NEW ORDER: OK TO EXTUBATE, NO ABG REQUIRED, KEEP CURRENT HHN FREQUENCY, DC MUCOMYST, KEEP SATURATION GREATER THAN 90%
--- NOTE | 2019-11-30 11:30 | NUR ---
PATIENT SUCCESSFULLY EXTUBATED PLACED ON SUPPLEMENTAL OXYGEN AT 2 LPM VIA NC POST EXTUBATION PATIENT PRESENTING WITH INTERMITTENT STRONG PRODUCTIVE COUGH OROPHARYNGEAL SUCTION SMALL SEMI THICK YELLOW SECRETIONS EDUCATION PROVIDED TO PATIENT WITH ACKNOWLEDGEMENT ON SELF OROPHARYNGEAL SUCTION
--- NOTE | 2019-11-30 12:58 | NUR ---
PAGED DR PRESTON ON REGARDS BP 200/69 PULSE 78. PATIENT DENIED OF ANY PAIN OR DISCOMFORT. AWAITING FOR MD TO RETURN CALL.
--- NOTE | 2019-11-30 13:32 | NUR ---
ENCOURAGED PATIENT WITH ACKNOWLEDGEMENT FOR DEEP BREATHING AND COUGH DURING HHN THERAPY
--- NOTE | 2019-11-30 14:16 | NUR ---
SPOKE TO RE ELEVATED BP 180-200S HR CURRENTLY 80S-90S. RECIEVED ORDER FOR LABETALOL IV NOW AND TO GIVE MORNING DOSE OF METOPROLOL THAT WAS HELD FOR HR IN 50S THIS AM.
[2019-11-30] MEDS ORDERED: LABETALOL 100 MG/20 ML VIAL IV SCH (14:17)
[2019-11-30] MEDS: fentaNYL citrate 0.05 MG/ML VIAL IVP PRN ×2 (14:53→22:16)
--- NOTE | 2019-11-30 19:25 | NUR ---
RECEIVED REPORT FROM AM SHIFT. PT SEEN AND ASSESSED. PT IS ON 2L NC WITH SPO2 OF 97%. RALES BREATH SOUNDS ON AUSCULTATION. PT IS IN NO RESPIRATORY DISTRESS AT THIS TIME. HHN TX GIVEN AND PT TOLERATED TX WELL WITH NO ADVERSE REACTION. PT WAS INFORMED TO CALL FOR PRN TX WHEN EXPERIENCING SHORTNESS OF BREATH. WILL CONTINUE TO MONITOR PT.
--- NOTE | 2019-11-30 20:00 | NUR ---
RECEIVED REPORT FROM DAY SHIFT RN. PT IS ALERT AND ORIENTED. ABLE TO MAKE NEEDS KNOWN TO STAFF. ABLE TO FOLLOW COMMANDS. RESPIRATION EVEN AND UNLABORED. ON NASAL CANNULA @ 2LPM. LUNG SOUNDS DIMINISHED UPON AUSCULTATION. BOWEL SOUNDS ACTIVE. ABDOMEN LARGE, NON TENDER. ACCESSES ON THE RIGHT UPPER ARM MIDLINE, RIGHT SUBCLAVIAN DIALYSIS CATHETER. SKIN WARM AND DRY. INCONTINENT DERMATITIS OBSERVED TO BILATERAL INNER THIGHS AND JESUS AREA, MULTIPLE SCABS ON THE RIGHT ARM, EXCORIATION TO ABDOMINAL FOLDS. TREATMENT IN PLACE. NGT TO RIGHT NARES, INTACT, PATENT AND IN PLACE. NEPRO @ 35MLS/HR WITH 100 ML/4HRS FWF. CROUCH CATHETER INTACT AND PATENT. BED IN LOWEST POSITION, SIDE RAILS UP. ALL SAFETY MEASURES IN PLACE. WILL CONTINUE TO MONITOR PT.
--- NOTE | 2019-11-30 21:00 | NUR ---
PT HAD A BOWEL MOVEMENT. PT CLEANED AND REPOSITIONED. DENIES PAIN. NO DISTRESS NOTED. WILL CONTINUE TO MONITOR.
[2019-11-30] MEDS: ATORVASTATIN 20 MG TAB PO SCH (21:15)
[2019-11-30] MEDS: MEROPENEM 500 MG in NACL 0.9% 50 ML IV SCH (21:16)
--- NOTE | 2019-11-30 21:21 | NUR ---
MEROPENEM HUNG AND INFUSING ORDERED. WILL CONTINUE TO MONITOR.
[2019-11-30] MEDS: ZOLPIDEM 5 MG TAB PO PRN (23:55)
[2019-12-01] VITALS (8 sets, daily range): BP systolic 130–188; BP diastolic 43–81
--- NOTE | 2019-12-01 | NUR ---
TURNED AND REPOSITIONED PT. PT IN NO DISTRESS OBSERVED. DENIES PAIN. WILL CONTINUE TO MONITOR.
--- NOTE | 2019-12-01 01:00 | NUR ---
PT PULLED OUT HER NGT AND REFUSING REINSERTION. DISCUSSED ABOUT THE SIGNIFICANCE OF THE NGT BUT STILL REFUSED. PT DENIES PAIN AND SOB. WILL CONTINUE TO MONITOR.
[2019-12-01] MEDS ORDERED: hydrALAZINE 25 MG TAB PO SCH (01:10)
--- NOTE | 2019-12-01 01:10 | NUR ---
BEDSIDE SWALLOW EVALUATION PERFORMED. NO SIGNS OF ASPIRATION, NO COUGHING NOTED. PT TOLERATED WELL. WILL CONTINUE TO MONITOR.
[2019-12-01] MEDS ORDERED: hydrALAZINE 25 MG TAB PO PRN (01:15)
--- NOTE | 2019-12-01 01:15 | NUR ---
CALLED DR. PARK AND MADE HIM AWARE ABOUT THE PT'S BLOOD PRESSURE WITH SBP>180. MD ORDERED HYDRALAZINE PO 30MG NOW AND Q4H PRN. ALSO AWARE THAT PT PULLED OUT HER NGT AND REFUSING FOR REINSERTION. WILL CONTINUE TO MONITOR PT. Addendum: 12/01/19 at 0128 by Connor Arnold RN ORDER RECEIVED TO GIVE HYDRALAZINE PO 30MG Q4H PRN FOR SBP>170/ DBP>100. CARRIED OUT.
[2019-12-01] MEDS: Z-GUARD PASTE TP SCH (01:23)
[2019-12-01] MEDS: NYSTATIN POW 100 MU/GM 15 GM BTL TP SCH (01:24)
[2019-12-01] MEDS: ALBUTEROL SULFATE/IPRATROPIU 3 ML SOL IH SCH ×4 (01:45→19:41)
--- NOTE | 2019-12-01 03:44 | NUR ---
MORNING CARE PROVIDED. CLEANED PT, JESUS CARE, ORAL CARE, CROUCH CARE PROVIDED. TURNED AND REPOSITIONED. DENIES PAIN.WILL CONTINUE TO MONITOR.
[2019-12-01] MEDS: LEVOTHYROXINE 0.05 MG TAB PO SCH (05:41)
--- NOTE | 2019-12-01 05:44 | NUR ---
BP: 171/69. PRN HYDRALAZINE 30MG PO GIVEN ORDERED. WILL CONTINUE TO MONITOR.
--- NOTE | 2019-12-01 06:34 | NUR ---
LATEST BP: 164/58. NO SIGNS OF DISTRESS OBSERVED. WILL CONTINUE TO MONITOR.
--- NOTE | 2019-12-01 07:00 | NUR ---
HANDOFF RECEIVED FROM KILN STACKER RN. PT IS A&OX4, ON 2 L NC, CURRENTLY SATTING AT 98%. NO SIGNS OF RESPIRATORY DISTRESS NOTED. PT IS SR ON THE MONITOR. FOR ACCESS, PT HAS SUELLEN MIDLINE AND R SUBCLAVIAN HD. PT NO LONGER HAS NG TUBE FEED RUNNING DUE TO PT PULLING OUT NG TUBE, REFUSED TO LET KILN STACKER RN PUT BACK IN. PER KILN STACKER, BEDSIDE SWALLOW EVAL PERFORMED AND OKAY TO GIVE PO MEDS. PT CROUCH CATHETER IN PLACE. HOB IS 30 DEG, WITH BED IN LOW LOCKED POSITION. WILL CONTINUE TO MONITOR.
--- NOTE | 2019-12-01 07:35 | NUR ---
PT IS AOX4, ABLE TO FOLLOW SIMPLE COMMANDS. PT TEMPERATURE 98.1 ORALLY. VAP ORAL CARE PROVIDED, PT ABLE TO COMPLETE WITH MINIMAL ASSIST. CROUCH CARE PROVIDED. WILL CONTINUE TO MONITOR.
[2019-12-01] MEDS: PANTOPRAZOLE 40 MG INJ VIAL IVP SCH (08:23)
[2019-12-01] MEDS: SERTRALINE 50 MG TAB PO SCH (08:23)
[2019-12-01] MEDS: predniSONE 20 MG TAB PO SCH (08:24)
[2019-12-01] MEDS: hydrALAZINE 10 MG TAB PO SCH ×3 (08:28→16:13)
[2019-12-01] MEDS: amLODIPine 5 MG TAB PO SCH (08:28)
[2019-12-01] MEDS: DULoxetine 30 MG CAPDR PO SCH (08:29)
[2019-12-01] MEDS: MUPIROCIN CA NASAL 2% 1GM TUBE NS SCH (08:30)
[2019-12-01] MEDS: METOPROLOL 25 MG TAB PO SCH ×2 (09:00→20:58)
[2019-12-01] MEDS: CHLORHEXADINE GLUC 2% CLOTH TP SCH (09:00)
--- NOTE | 2019-12-01 09:02 | NUR ---
MEDICATIONS ADMINISTERED PER ORDER, METOPROLOL HELD DUE TO HR<60. PT ABLE TO TAKE PO MEDICINES AND TOLERATED WELL, NO SIGNS OF COUGHING OR CHOKING. PT TURNED AND CLEANED, SMALL BOWEL MOVEMENT. WILL CONTINUE TO MONITOR.
--- NOTE | 2019-12-01 09:07 | NUR ---
HEEL TURNER AT BEDSIDE.
[2019-12-01 09:11] LABS: BASOPHILS % (AUTO) 0.1 % (0.0-2.0); EOSINOPHILS # (AUTO) 0.1 K/uL (0-0.4); EOSINOPHILS % (AUTO) 1.1 % (0.0-4.0); HEMATOCRIT 29.5 % (36-48); HEMOGLOBIN 9.4 g/dL (12.0-16.0); LYMPHOCYTES # (AUTO) 1.3 K/uL (2.5-16.5); LYMPHOCYTES % (AUTO) 13.2 % (20.5-51.1); MEAN CORPUSCULAR HEMOGLOBIN 25 pg (27-31); MEAN CORPUSCULAR HGB CONC 32 g/dL (33-37); MEAN CORPUSCULAR VOLUME 77.3 fL (80-94); MONOCYTES # (AUTO) 0.7 K/uL (0.8-1.0); MONOCYTES % (AUTO) 7.5 % (1.7-9.3); NEUTROPHILS # (AUTO) 7.7 K/uL (1.8-7.7); NEUTROPHILS % (AUTO) 78.1 % (42.2-75.2); PLATELET COUNT (AUTO) 334 K/uL (140-450); RED BLOOD CELL COUNT(AUTO) 3.82 MIL/uL (4.20-5.40); RED CELL DISTRIBUTION WIDTH 15.3 % (11.6-13.7); WHITE BLOOD COUNT (AUTO) 9.9 K/uL (4.8-10.8)
--- NOTE | 2019-12-01 09:45 | NUR ---
DR. FIGUEROA AT BEDSIDE TO SEE PT
[2019-12-01 10:16] LABS: ANION GAP 11.3 (8-16); CARBON DIOXIDE 28.2 mmol/L (21-32); CREATININE 1.8 mg/dL (0.6-1.3); POTASSIUM 3.5 mmol/L (3.5-5.1)
--- NOTE | 2019-12-01 11:45 | NUR ---
DR. CALLOWAY AT BEDSIDE TO SEE PT.
[2019-12-01] MEDS ORDERED: VANCOMYCIN HCL 1.25 GM in DEXTROSE 5% 500 ML IV SCH (12:00)
--- NOTE | 2019-12-01 12:40 | NUR ---
MEDICATIONS ADMINISTERED PER ORDER, PT TOLERATED WELL. TEMPERATURE 98.4 TEMPORALLY. WILL CONTINUE TO MONITOR.
--- NOTE | 2019-12-01 12:48 | NUR ---
WOUND CARE RE-EVALUATION NOTE: INTERTRIGO AND EROSIONS ARE NOT IMPROVING, WILL RECOMMEND TO DISCONTINUE NYSTATIN POWDER AND START HYDROGEL. -INTERTRIGO TO LEFT INGUINAL AREA 1X7CM SUPERFICIAL -MOISTURE ASSOCIATED DERMATITIS TO R/L MEDIAL THIGHS IMPROVING -RIGHT LOWER ABDOMINAL FOLD EROSIONS PROGRESS TO PARTIAL THICKNESS SKIN LOSS, 1X18X0.1CM, WOUND BED IS PINK, MOIST NO ODOR, NO S/S OF INFECTION, JESUS WOUND SKIN INTACT -RIGHT INGUINAL AREA EROSIONS PROGRESS TO PARTIAL THICKNESS SKIN LOSS, 2.5X7X0.1CM, WOUND BED IS PINK, MOIST NO ODOR, NO S/S OF INFECTION, JESUS WOUND SKIN INTACT RECOMMENDATIONS: -DISCONTINUE NYSTATIN POWDERS AND Z GUARD BID AND KIERAN -CLEANSE RIGHT AND LEFT LOWER ABDOMINAL FOLDS AND RIGHT INGUINAL AREA PARTIAL THICKNESS SKIN LOSS, PAT DRY AND APPLY HYDROGEL AND COVER WITH FAN FOLDED KERLIX ROLL , SECURED WITH PAPER TAPE CHANGE QD AND PRN IF SOILING POC DISCUSSED WITH PRIMARY RN Addendum: 12/01/19 at 1308 by Skylar Singh (Grace) RN CORRECTION: -CLEANSE RIGHT LOWER ABDOMINAL FOLDS AND RIGHT INGUINAL AREA PARTIAL THICKNESS SKIN LOSS, PAT DRY AND APPLY HYDROGEL AND COVER WITH FAN FOLDED KERLIX ROLL , SECURED WITH PAPER TAPE CHANGE QD AND PRN IF SOILING
--- NOTE | 2019-12-01 13:15 | NUR ---
MEDICATIONS ADMINISTERED PER ORDER, PT TOLERATED WELL. CHG BED BATH GIVEN, TEMPERATURE 99.7 AXILLARY. WILL CONTINUE TO MONITOR.
--- NOTE | 2019-12-01 13:30 | NUR ---
PT AT BEDSIDE, ASSISTED PT TO SIT UP ALONG SIDE OF BED. PT TOLERATED WELL. WILL CONTINUE TO MONITOR.
--- NOTE | 2019-12-01 16:26 | NUR ---
MEDICATIONS ADMINISTERED PER ORDER, PT TOLERATED WELL. PT REPOSITIONED, ABLE TO TURN ON SIDE WITH ASSISTANCE. TEMPERATURE 98.5 ORALLY.
--- NOTE | 2019-12-01 18:13 | NUR ---
SPEECH LANGUAGE PATHOLOGIST AT BEDSIDE.
--- NOTE | 2019-12-01 18:23 | NUR ---
PER SPEECH LANGUAGE PATHOLOGY, PT OKAY FOR MECHANICAL SOFT DIET.
--- NOTE | 2019-12-01 18:38 | NUR ---
* ST NOTE * Pt seen at bedside w/RN present. Pt alert, cooperative and engaged throughout session, reporting no c/o pain at this time. Bedside Dysphagia and Oral mechanism exams completed. See evaluation report for further details. Singh's Assessment of Swallowing Ability (MASA) utilized at this time, w/pt scoring 186/200. Acc to MASA, pt presenting with unlikely risk of aspiration, as well as unlikely risk of dysphagia, which is congruent w/clinician's observations during therapeutic feeding trials. Pt demo'ing difficulty masticating and lingual residue 2/2 to pt edentulous w/o dentures in place, but otherwise no oral phase dysphagia and no suspected pharyngeal phase dysphagia. Pt may thus benefit from mechanical soft textures w/thin liquids for all meals w/aspiration precautions in place. Further ST services not indicated at this time. Pt and caregiver/RN education completed re: results of evaluation; benefits of abiding by aspiration precautions and recommended PO diet consistency; and prognosis for improvement; with pt and RN verbalizing understanding and agreement w/clinician's recommendations. PT Request for Service received w/Nsg and JANNETTE noting order was entered erroneously but was for SWALLOW EVALUATION: Recommend: - PO DIET CONSISTENCY OF MECHANICAL SOFT TEXTURES W/THIN LIQUIDS for all meals - WHOLE PILL MEDICATIONS IN PUREE TEXTURES OKAY - MAINTAIN STRICT ASPIRATION PRECAUTIONS DURING PT'S PO INTAKE - CUE/REMIND PT TO SIT UP AT 90 DEGREE ANGLE DURING PO INTAKE; EAT/DRINK SLOWLY; TAKE SMALL BITES/SIPS; ALTERNATE BTWN SOLIDS AND LIQUIDS No further ST follow up indicated at this time. Time In/Out 17:55 - 18:20
--- NOTE | 2019-12-01 19:47 | NUR ---
HANDOFF GIVEN TO CAUSE ANALYSTEVON VASQUEZ FOR CONTINUITY OF CARE.
--- NOTE | 2019-12-01 19:50 | NUR ---
RECEIVED REPORT FROM ICU NURSE, PT TRANSFERRED BACK TO TELE UNIT FORM ICU IN STABLE CONDITION. PT IS AAOX3-4, VERBALLY RESPONSIVE, CAN UNDERSTAND AND SPEAK SALVADOREAN AND [place]ERBAIJANI. C/C WAS SOB. DX ARF & PNA. PT IN NO DISTRESS, NO SOB, DENIES PAIN/DISCOMFORT. PT HAS O2 2LPM VIA NC, SATTING WELL AT 98-100%. NOTED R SUBCLAVIAN TUNNELED CATH FOR DIALYSIS ACCESS AND SUELLEN MIDLINE, PATENT AND FLUSHED, RUNNING NS TKO. PER BOILER OR ENGINE OPERATOR, PT HAD DIALYSIS TODAY FINISHED AROUND 11AM WITH 3L OUTPUT. PT HAS CROUCH CATH IN PLACED, INTACT AND DRAINING ADEQUATELY W/ CLEAR YELLOW URINE. INCONTINENT TO BOWEL. PT HAS L ABDOMINAL INTERTRIGO, R ABD SKI TEAR AND R&L INGUINAL FOLDS SKIN TEAR AND DERMATITIS. CONTACT ISOLATION PRECAUTION IN PLACED FOR MRSA NARES, SPUTUM AND ESBL URINE. FALL RISK PROTOCOL IN PLACED. COMFORT AND SAFETY MEASURES IN PLACED. REORIENTED TO ROOM AND CALL LIGHT. CALL LIGHT WITHIN REACH. WILL CONTINUE TO MONITOR.
[2019-12-01] MEDS: ATORVASTATIN 20 MG TAB PO SCH (20:57)
[2019-12-01] MEDS: MEROPENEM 500 MG in NACL 0.9% 50 ML IV SCH (22:55)
--- NOTE | 2019-12-01 23:20 | NUR ---
PT REQUESTED HELP IN CALLING HER SON VIA BEDSIDE TELEPHONE. WELL APPRECIATED.
[2019-12-02] VITALS: BP 163/52
[2019-12-02] MEDS: ALBUTEROL SULFATE/IPRATROPIU 3 ML SOL IH SCH ×4 (00:46→19:09)
--- NOTE | 2019-12-02 01:20 | NUR ---
PT SLEEPING COMFORTABLY IN BED, NO APPARENT DISTRESS, NO SOB, RESPIRATIONS EQUAL. BED IN LOWEST POSITION. SAFETY MEASURES IN PLACED. CALL LIGHT IN PLACED. WILL CONTINUE TO MONITOR.
[2019-12-02] MEDS: ACETAMINOPHEN 325 MG TAB PO PRN ×2 (02:49→09:26)
--- NOTE | 2019-12-02 02:49 | NUR ---
PT COMPLAINED OF PAIN IN CHEST AND BACK. TYLENOL 650 MG PRN GIVEN. WILL RE-ASSESS AFTER AN HOUR.
--- NOTE | 2019-12-02 06:11 | NUR ---
12/02/19 RD FOLLOW UP COMPLETED PLEASE REFER TO NUTRITION ASSESSMENT UNDER CARE ACTIVITY FOR ESTIMATED NUTRITIONAL NEEDS. 1. RECOMMEND RENAL 80 GM PROTEIN MECHANICAL SOFT DIET 2. RECOMMEND NEPRO BID IF PO INTAKE <75% 3. ASSIST WITH MEALS IF NEEDED 4. RD TO FOLLOW-UP 2-3 DAYS, HIGH RISK QUINTON NUNEZ, RD
[2019-12-02] MEDS: LEVOTHYROXINE 0.05 MG TAB PO SCH (06:30)
--- NOTE | 2019-12-02 07:00 | NUR ---
TITRATED PT TO 1L NC, SATURATION 99%.
--- NOTE | 2019-12-02 07:30 | NUR ---
RECEIVED REPORT FROM NIGHT NURSE PT IS AWAKE ON 2LPM OXYGEN VIA NC , WITH CROUCH CATHETER, MECHANICAL SOFT DIET, WITH RIGHT SUBCLAVIAN TUNNEL CUT FOR DIALYSIS INTACT IV SITES ON RIGHT UA MIDLINE. INCONTINENT, SKIN NON INTACT. SAFETY MEASURES IN PLACE CALL LIGHT WITHIN REACH. WILL CONTINUE TO MONITOR.
[2019-12-02 08:00] VITALS: BP 150/40
[2019-12-02] MEDS: PANTOPRAZOLE 40 MG INJ VIAL IVP SCH (09:07)
[2019-12-02] MEDS: METOPROLOL 25 MG TAB PO SCH ×2 (09:10→21:15)
[2019-12-02] MEDS: DULoxetine 30 MG CAPDR PO SCH (09:10)
[2019-12-02] MEDS: SERTRALINE 50 MG TAB PO SCH (09:11)
[2019-12-02] MEDS: amLODIPine 5 MG TAB PO SCH (09:11)
[2019-12-02] MEDS: hydrALAZINE 10 MG TAB PO SCH ×4 (09:12→21:00)
[2019-12-02] MEDS: MUPIROCIN CA NASAL 2% 1GM TUBE NS SCH (09:12)
--- NOTE | 2019-12-02 09:20 | NUR ---
MEDICATION GIVEN AT THIS TIME CHECK VITAL SIGNS PRIOR TO MEDICATION BP 150/40 MD 57 AND PATIENT COMPLAINS OF PAIN IN THE BACK AND HER BODY. DR PARK WAS AWARE AND VISITED THE PATIENT AT THIS TIME. SAFETY MEASURES IN PLACE CALL LIGHT WITHIN REACH. WILL CONTINUE TO MONITOR.
[2019-12-02] MEDS: CHLORHEXADINE GLUC 2% CLOTH TP SCH (09:23)
[2019-12-02 12:00] VITALS: BP 149/30
--- NOTE | 2019-12-02 12:00 | NUR ---
MADE ROUNDS AT THIS TIME AND CHECKED VITAL SIGNS BP AT 149/30 AND OH 70 ON THE LEFT CALF.
--- NOTE | 2019-12-02 13:20 | NUR ---
CHECK VITAL SIGNS BP 148/46 LA 50 MEDICATION HYDRAZALINE NOT GIVEN PATIENT PULSE RATE IS LOW. ASSESSES AND APPLIED MEDICATION ON PATIENT ABDOMEN , RIGHT AND LEFT INGUINAL FOLLDS. PAT IS STABLE AND DENIES PAIN.
[2019-12-02] MEDS: SKINTEGRITY HYDROGEL TP SCH (13:22)
--- NOTE | 2019-12-02 13:48 | NUR ---
HOLD HYDRALAZINE MEDICATION BP 148/[address] PARK AWARE
[2019-12-02 16:00] VITALS: BP 129/47
--- NOTE | 2019-12-02 17:00 | NUR ---
MEDICATION GIVEN, CHECK VITAL SIGNS PRIOR TO MEDICATION BP 139/50 GA 56 OXYGEN SATURATION AT 97%. PT IS STABLE.
--- NOTE | 2019-12-02 18:27 | NUR ---
PATIENT COMPLAINS OF SHORTNESS OF BREATH, CHECK VITAL SIGNS BP 145/46 HI 57 OXYGEN SATURATION 1005. INCREASED OXYGEN LEVEL FROM 1LPM TO 2LPM AND ENCOURAGED BREATHING EXERCISES. PT VERBALIZES FEELING BETTER. PT IS STABLE.
--- NOTE | 2019-12-02 19:11 | NUR ---
ENDORSED TO NIGHT NURSE FOR CONTINUITY OF CARE. PT IS STABLE
--- NOTE | 2019-12-02 19:13 | NUR ---
RECEIVED REPORT FROM AM SHIFT. PT SEEN AND ASSESSED. PT IS ON 2L NC WITH SPO2 OF 98%. RALES BREATH SOUNDS ON AUSCULTATION. PT IS IN NO RESPIRATORY DISTRESS AT THIS TIME. HHN TX GIVEN AND PT TOLERATED TX WELL WITH NO ADVERSE REACTION. PT WAS INFORMED TO CALL FOR PRN TX WHEN EXPERIENCING SHORTNESS OF BREATH. WILL CONTINUE TO MONITOR PT.
--- NOTE | 2019-12-02 19:30 | NUR ---
RECEIVED REPORT AND CONTINUITY OF CARE FROM AM NURSE. PT IS IN STABLE CONDITION. WILL CONTINUE TO MONITOR.
[2019-12-02 20:00] VITALS: BP 149/53
[2019-12-02] MEDS: ATORVASTATIN 20 MG TAB PO SCH (21:15)
[2019-12-02] MEDS: MEROPENEM 500 MG in NACL 0.9% 50 ML IV SCH (22:15)
--- NOTE | 2019-12-02 22:29 | NUR ---
PT REPORTED HAVING CHEST PAIN. MD WAS NOTIFIED AND ORDER WAS RECEIVED. WILL ADMINISTER ORDER PER MD.
[2019-12-02] MEDS: MORPHINE SULFATE 2 MG/ML SYR IVP PRN (22:45)
[2019-12-02] MEDS ORDERED: MORPHINE SULFATE 2 MG/ML SYR ONE (22:50)
--- NOTE | 2019-12-02 23:15 | NUR ---
PT IS WATCHING TV. NO SIGNS OF DISTRESS NOTED.
[2019-12-03] VITALS: BP 153/47
[2019-12-03] MEDS: ALBUTEROL SULFATE/IPRATROPIU 3 ML SOL IH SCH ×4 (00:18→19:00)
--- NOTE | 2019-12-03 01:04 | NUR ---
PT IS SITTING IN BED WATCHING TV. NO SIGNS OF DISTRESS NOTED.
--- NOTE | 2019-12-03 03:15 | NUR ---
PT SLEEPING. BREATHING SPONTANEOUSLY.
[2019-12-03 04:00] VITALS: BP 144/48
[2019-12-03] MEDS: ALBUTEROL SULFATE/IPRATROPIU 3 ML SOL IH PRN (04:31)
--- NOTE | 2019-12-03 04:33 | NUR ---
PT C/O OF SOB. PRN TX GIVEN AND PT TOLERATED TX WELL WITH NO ADVERSE REACTION. WILL CONTINUE TO MONITOR PT.
--- NOTE | 2019-12-03 06:12 | NUR ---
PT IS SLEEPING. NO SIGNS OF DISTRESS NOTED.
[2019-12-03] MEDS: LEVOTHYROXINE 0.05 MG TAB PO SCH (06:30)
--- NOTE | 2019-12-03 07:30 | NUR ---
RECEIVED REPORT FROM NIGHT NURSE FOR CONTINUITY OF CARE, PT IS STABLE, PT RECEIVING BREATHING TREATMENT, PT ON 2L OXYGEN VIA NC, PT HAS RIGHT UPPER ARM MIDLINE IS INFUSING NORMAL SALINE TKO, PT HAS SEVERAL WOUNDS: LEFT ABD INTERTRIGO, L & R INGUINAL FOLD, R ABD FOLD, R ARM SCAB, AND LEFT LEG SCAB, BED IN LOW POSITION, SAFETY MEASURES IN PLACE, CALL LIGHT WITHIN REACH, WILL CONTINUE TO MONITOR.
--- NOTE | 2019-12-03 07:53 | NUR ---
GAVE REPORT AND ENDORSED CARE TO AM NURSE. PT IS IN STABLE CONDITION.
[2019-12-03 08:00] VITALS: BP 156/52
[2019-12-03 08:58] LABS: BASOPHILS # (AUTO) 0.1 K/uL (0.00-0.22); BASOPHILS % (AUTO) 0.9 % (0.0-2.0); EOSINOPHILS # (AUTO) 0.2 K/uL (0-0.4); EOSINOPHILS % (AUTO) 2.8 % (0.0-4.0); HEMATOCRIT 32.3 % (36-48); HEMOGLOBIN 10.4 g/dL (12.0-16.0); LYMPHOCYTES # (AUTO) 1.1 K/uL (2.5-16.5); LYMPHOCYTES % (AUTO) 17.6 % (20.5-51.1); MEAN CORPUSCULAR HEMOGLOBIN 25 pg (27-31); MEAN CORPUSCULAR HGB CONC 32 g/dL (33-37); MEAN CORPUSCULAR VOLUME 77.4 fL (80-94); MONOCYTES # (AUTO) 0.5 K/uL (0.8-1.0); MONOCYTES % (AUTO) 7.4 % (1.7-9.3); NEUTROPHILS # (AUTO) 4.6 K/uL (1.8-7.7); NEUTROPHILS % (AUTO) 71.3 % (42.2-75.2); PLATELET COUNT (AUTO) 394 K/uL (140-450); RED BLOOD CELL COUNT(AUTO) 4.18 MIL/uL (4.20-5.40); RED CELL DISTRIBUTION WIDTH 15.7 % (11.6-13.7); WHITE BLOOD COUNT (AUTO) 6.4 K/uL (4.8-10.8)
[2019-12-03] MEDS: amLODIPine 5 MG TAB PO SCH (09:00)
[2019-12-03] MEDS: METOPROLOL 25 MG TAB PO SCH ×2 (09:00→20:17)
[2019-12-03] MEDS: hydrALAZINE 10 MG TAB PO SCH ×4 (09:00→20:16)
[2019-12-03 09:16] LABS: ANION GAP 14.5 (8-16); CARBON DIOXIDE 25.2 mmol/L (21-32); CREATININE 1.9 mg/dL (0.6-1.3); POTASSIUM 3.7 mmol/L (3.5-5.1)
[2019-12-03 09:18] LABS: MAGNESIUM 1.9 mg/dL (1.8-2.4); PHOSPHORUS 4.6 mg/dL (2.5-4.9)
[2019-12-03] MEDS: SERTRALINE 50 MG TAB PO SCH (09:19)
[2019-12-03] MEDS: DULoxetine 30 MG CAPDR PO SCH (09:19)
[2019-12-03] MEDS: PANTOPRAZOLE 40 MG INJ VIAL IVP SCH (09:20)
--- NOTE | 2019-12-03 09:35 | NUR ---
ADMINISTERED SCHEDULED MEDICATION, MEDICATION EDUCATION PROVIDED, PT VERBALIZED UNDERSTANDING, PT TOLERATED WELL, PT IS STABLE, CALL LIGHT WITHIN REACH.
--- NOTE | 2019-12-03 11:05 | NUR ---
PT STARTED HD, PT IS STABLE, DIALYSIS NURSE AT BEDSIDE. WILL CONTINUE TO MONITOR.
[2019-12-03 12:00] VITALS: BP 135/44
--- NOTE | 2019-12-03 12:24 | NUR ---
GAVE HEPARIN TO DIALYSIS NURSE FOR HD, PT IS STABLE RECEIVING HD, DIALYSIS NURSE AT BEDSIDE, WILL CONTINUE TO MONITOR,
--- NOTE | 2019-12-03 13:39 | NUR ---
HEMODIALYSIS IN PROGRESS
--- NOTE | 2019-12-03 14:35 | NUR ---
PT FINISH DIALYSIS, WITH OUTPUT OF 2.3 LITERS, PT IS STABLE WITH BP 129/36, WILL CONTINUE TO MONITOR. CALL LIGHT WITHIN REACH.
[2019-12-03] MEDS: SKINTEGRITY HYDROGEL TP SCH (15:22)
--- NOTE | 2019-12-03 15:51 | NUR ---
OBTAINED SWAB FOR COVID EVERETTE RAPID TEST, EXPLAINED TO PT THE PROCESS, PT TOLERATED OKAY, PT IS STABLE, CALL LIGHT WITHIN REACH, WILL CONTINUE TO MONITOR,
[2019-12-03 16:00] VITALS: BP 158/45
--- NOTE | 2019-12-03 17:23 | NUR ---
HOLD PER PARAMETER, PT BLOOD PRESSURE 143/40 AND PULSE IS 62, PT IS STABLE, NO SIGNS DISTRESS NOTED, CALL LIGHT WITHIN REACH, WILL CONTINUE TO MONITOR.
--- NOTE | 2019-12-03 19:15 | NUR ---
ENDORSE PT TO NIGHT NURSE FOR CONTINUITY OF CARE, PT IS STABLE
--- NOTE | 2019-12-03 19:16 | NUR ---
RECEIVED REPORT FROM AM NURSE FOR CONTINUITY OF CARE, PT IS STABLE, PT RECEIVING BREATHING TREATMENT, PT ON 2L OXYGEN VIA NC, PT HAS RIGHT UPPER ARM MIDLINE IS INFUSING NORMAL SALINE TKO, WITH LEFT ABD INTERTRIGO, L & R INGUINAL FOLD WOUNDS, R ABD FOLD WOUND, R ARM SCAB, AND LEFT LEG SCAB, BED IN LOW POSITION, SAFETY MEASURES IN PLACE, CALL LIGHT WITHIN REACH, WILL CONTINUE TO MONITOR. Addendum: 12/04/19 at 0200 by Jacquelin Farris RN WITH RIGHT UPPER MIDLINE, WITH BRUISING NOTED ON THE RIGHT UPPER ARM MIDLINE, NO SWELLING. NO BLEEDING
[2019-12-03 20:00] VITALS: BP 148/49
[2019-12-03] MEDS: MORPHINE SULFATE 2 MG/ML SYR IVP PRN (20:10)
[2019-12-03] MEDS: ATORVASTATIN 20 MG TAB PO SCH (20:16)
--- NOTE | 2019-12-03 22:00 | NUR ---
PT CHANGED AND CLEANED, TURNED HER TO SIDE, OFFLOADED PRESSURE AREAS.
--- NOTE | 2019-12-03 23:11 | NUR ---
PT ABLE TO MAKE NEEDS KNOWN, GIVEN SAOME SNACK, ATE LITTLE, PT TRYING TO GET SOME SLEEP
[2019-12-04] VITALS: BP 149/46
[2019-12-04] MEDS: ALBUTEROL SULFATE/IPRATROPIU 3 ML SOL IH SCH ×5 (01:41→23:36)
--- NOTE | 2019-12-04 01:55 | NUR ---
PT TUNNELED CATHETER CHECKED, ALSO CHECKED ON THE R MIDLINE, WITH BRUISING NOTED BUT NO SWELLING NOTED
--- NOTE | 2019-12-04 02:17 | NUR ---
PATIENT C/O OF PHLEGM IN HER THROAT UNPRODUCTIVE COUGH, ADMINISTERED COUGH MED
[2019-12-04 04:00] VITALS: BP_SYST 128; BP_SYST 150; BP_DIAS 32; BP_DIAS 46
--- NOTE | 2019-12-04 04:00 | NUR ---
PT TURNED AND CHANGED, DENIES PAIN, WILL CONTINUE TO MONITOR
--- NOTE | 2019-12-04 06:00 | NUR ---
SUNCTIONED PAT, NEAR TRACH TIE, WITH LIGHT SECRETIONS NOTED. ALSO SUCTIONED PT Addendum: 12/04/19 at 0858 by Jacquelin Farris RN DELETE NOTE WRONG PATIENT
[2019-12-04 06:40] LABS: BASOPHILS # (AUTO) 0.1 K/uL (0.00-0.22); BASOPHILS % (AUTO) 0.9 % (0.0-2.0); EOSINOPHILS # (AUTO) 0.1 K/uL (0-0.4); EOSINOPHILS % (AUTO) 1.6 % (0.0-4.0); HEMATOCRIT 31.2 % (36-48); MEAN CORPUSCULAR HEMOGLOBIN 25 pg (27-31); MEAN CORPUSCULAR HGB CONC 32 g/dL (33-37); MEAN CORPUSCULAR VOLUME 77.6 fL (80-94); MONOCYTES # (AUTO) 0.4 K/uL (0.8-1.0); MONOCYTES % (AUTO) 5.7 % (1.7-9.3); NEUTROPHILS # (AUTO) 4.9 K/uL (1.8-7.7); NEUTROPHILS % (AUTO) 76.8 % (42.2-75.2); PLATELET COUNT (AUTO) 371 K/uL (140-450); RED BLOOD CELL COUNT(AUTO) 4.03 MIL/uL (4.20-5.40); RED CELL DISTRIBUTION WIDTH 16.2 % (11.6-13.7); WHITE BLOOD COUNT (AUTO) 6.3 K/uL (4.8-10.8)
[2019-12-04 07:03] LABS: MAGNESIUM 1.5 mg/dL (1.8-2.4)
[2019-12-04 07:06] LABS: ANION GAP 11.7 (8-16); CARBON DIOXIDE 28.1 mmol/L (21-32); CREATININE 1.2 mg/dL (0.6-1.3); POTASSIUM 3.8 mmol/L (3.5-5.1)
[2019-12-04] MEDS: LEVOTHYROXINE 0.05 MG TAB PO SCH (07:17)
--- NOTE | 2019-12-04 07:25 | NUR ---
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
[2019-12-04 08:00] VITALS: BP 164/50
--- NOTE | 2019-12-04 08:55 | NUR ---
PT IS AWAKE AND ALERT ORIENTED X 3/4 WITH LITTLE INSIGHT. V/S: 97.0, 68, 20, 164/50, 97% ON 2L NC. PAIN 0/10. PT IS ABLE TO COMMUNICATE VERBALLY IN [place]. TOLERATED PO MEDICATION WITH NO PROBLEMS. LUNG SOUNDS ARE DIMINISHED ABD IS ROUND SOFT AND NON-TENDER, LBM 10 DENIES CONSTIPATION OR ABD DISCOMFORT AT THIS TIME. PT HAS MIDLINE RIGHT UPPER ARM. THAT IS PATENT AND INTACT ON TKO. PT HAS DISCOLORATION TO UPPER RIGHT ARM IDENTIFIED WITH SHIFT PATTERN MECHANIC HOWEVER NO SWELLING NO DISCHARGE AROUND IV SITE. PT HAS SEVERAL WOUNDS. LEFT AND RIGHT INGUINAL AREA, MEDICAL LEFT AND RIGHT THIGH, RIGHT AND LEFT ABD FOLDS (EROSION) NO SOB, RECEIVED BREATHING TREATMENT WITH NO PROBLEMS, SAFETY MEASURES IN PLACE.
[2019-12-04] MEDS: PANTOPRAZOLE 40 MG INJ VIAL IVP SCH (09:40)
[2019-12-04] MEDS: DULoxetine 30 MG CAPDR PO SCH (09:41)
[2019-12-04] MEDS: SERTRALINE 50 MG TAB PO SCH (09:41)
[2019-12-04] MEDS: hydrALAZINE 10 MG TAB PO SCH ×4 (09:41→21:00)
[2019-12-04] MEDS: METOPROLOL 25 MG TAB PO SCH ×2 (09:44→21:00)
[2019-12-04] MEDS: amLODIPine 5 MG TAB PO SCH (09:44)
--- NOTE | 2019-12-04 10:40 | NUR ---
PROVISION OF CARE PROVIDED, IN NO DISTRESS. WATCHING TV. CALL LIGHT WITHIN REACH.
--- NOTE | 2019-12-04 11:46 | NUR ---
12/04/2019 RD FOLLOW UP COMPLETED PLEASE REFER TO NUTRITION PROGRESS NOTE UNDER CARE ACTIVITY FOR ESTIMATED NUTRITION NEEDS. RD RECOMMENDATIONS: 1. CONTINUE RENAL 80 GM PROTEIN MECHANICAL SOFT DIET 2. DISCONTINUE NEPRO BID PER PTS REQUEST 3. ASSIST WITH MEALS IF NEEDED 4. RENAL DIET EDUCATION PROVIDED TO PT. 5. RD TO FOLLOW-UP 3-5 DAYS, MODERATE RISK. MARGARITA ORTA, RD
[2019-12-04 12:00] VITALS: BP 139/52
[2019-12-04] MEDS: ALBUTEROL SULFATE/IPRATROPIU 3 ML SOL IH PRN (12:05)
--- NOTE | 2019-12-04 12:10 | NUR ---
PT CALLED NURSE STATING SHE WAS HAVING SOB, UPON ASSESSMENT PT IS FIDGETY AND WANTED COVERS OFF, SHE STATED SHE FELT SOME ANXIETY BECAUSE SHE IS UNCOMFORTABLE IN BED, PT ENCOURAGED TO USE DEEP BREATHING TECHNIQUES RESPIRATION ARE EVEN AND UNLABORED. NO SIGNS OF RESPIRATORY DISTRESS. V/S: 98.5, 61, 18, 139/56, 97% ON 2 K NC. PT WAS TURNED TO RIGHT SIDE FOR COMFORT. STATES SHE FELT SOME RELIEF, DENIES ANY FURTHER SOB OR CHEST PAIN. RT WAS CALLED PT REMAINS STABLE IN NO FURTHER DISTRESS, BREATHING TREATMENT GIVEN ORDERED. ALL NEEDS MET AT THIS TIME. CALL LIGHT WITHIN REACH.
[2019-12-04] MEDS ORDERED: MAG SULF 2000 MG/WATER PREMIX 50 ML IV SCH (13:00)
[2019-12-04] MEDS: SKINTEGRITY HYDROGEL TP SCH (13:05)
--- NOTE | 2019-12-04 14:24 | NUR ---
PT RESTING IN BED, RECEIVING MAG-RIDER WITH NO ISSUES, CALL LIGHT WITHIN REACH ALL NEEDS MET.
[2019-12-04 16:00] VITALS: BP 139/45
--- NOTE | 2019-12-04 16:45 | NUR ---
V/S: 98.1, 66, 18, 139/45, 97% ON 2 L NC. PAIN 0/10. RESTING IN BED NO DISTRESS, CALL LIGHT WITHIN REACH. TOLERATED PO MEDICATION WITH NO PROBLEM.
--- NOTE | 2019-12-04 18:36 | NUR ---
PROVISION OF CARE PROVIDED, PT ASSISTED WITH PHONE CALL TO SON. IN NO DISTRESS ALL NEEDS MET.
--- NOTE | 2019-12-04 19:25 | NUR ---
RECEIVED REPORT FROM LUCILLE RNSRIRAM. PT AOX3/4 ON 2L N/C. NO S/S RESPIRATORY DISTRESS. DENIES SOB. IV SITE MIDLINE SUELLEN DOUBLE LUMEN, PATENT AND INTACT, TKO. PT HAS OPEN WOUNDS ON LEFT AND RIGHT INGUINAL AREA, MEDICAL LEFT AND RIGHT THIGH, RIGHT AND LEFT ABD FOLDS. SAFETY MEASURES IN PLACE. CALL LIGHT WITHIN REACH. WILL CONTINUE TO MONITOR
--- NOTE | 2019-12-04 19:25 | NUR ---
REPORT GIVEN TO PATENT LAWYER RN FOR CONTINUITY OF CARE. PT IS STABLE , REQUESTED ASSISTANCE WITH PHONE CALL, NUMBER WAS DIALED HOWEVER DID NOT GO THROUGH.
[2019-12-04 20:00] VITALS: BP 131/37
[2019-12-04] MEDS ORDERED: KETOROLAC 30 MG/ML VIAL IVP SCH (20:10)
--- NOTE | 2019-12-04 20:15 | NUR ---
PT C/O PAIN ALL OVER BODY. PT BP 131/37 HR 68. MADE AWARE. ORDERS RECEIVED.
--- NOTE | 2019-12-04 20:31 | NUR ---
PT C/O ITCHINESS. MD MADE AWARE. ORDERS RECEIVED
--- NOTE | 2019-12-04 20:42 | NUR ---
ADMINISTERED SCHEDULED MEDS, PROVIDED MEDICATION EDUCATION. PT VERBALIZED UNDERSTANDING. HELD BLOOD PRESSURE MEDS DUE TO LOW DBP, MD AWARE. ORDERS RECEIVED. NO DISTRESS NOTED. WILL CONTINUE TO MONITOR
[2019-12-04] MEDS: ATORVASTATIN 20 MG TAB PO SCH (20:54)
--- NOTE | 2019-12-04 23:50 | NUR ---
PT C/O SOB. VS: BP 147/41, RR 18 HR 67 TEMP 97.1 O2 SAT 98% ON 2L N/C. ENCOURATGED PT TO TAKE DEEP BREATHS AND TO RELAX. RESPIRATIONS EVEN AND UNLABORED. CALLED RT. BREATHING TREATMENT GIVEN ORDERED. PT TOLERATED WELL. PT IS STABLE
[2019-12-05] VITALS: BP 147/41
--- NOTE | 2019-12-05 01:45 | NUR ---
PT ASLEEP IN BED. RESPIRATIONS EVEN AND UNLABORED. O2 SAT 97%. WILL CONTINUE TO MONITOR
[2019-12-05 04:00] VITALS: BP 153/42
--- NOTE | 2019-12-05 04:05 | NUR ---
PT ASLEEP IN BED. NO DISTRESS NOTED. WILL CONTINUE TO MONITOR
--- NOTE | 2019-12-05 05:00 | NUR ---
CLEANED, CHANGED, TURNED PT, TOLERATED WELL. NO DISTRESS NOTED. WILL CONTINUE TO MONITOR
[2019-12-05 06:25] LABS: EOSINOPHILS # (AUTO) 0.1 K/uL (0-0.4); EOSINOPHILS % (AUTO) 2.6 % (0.0-4.0); HEMATOCRIT 30.8 % (36-48); HEMOGLOBIN 9.7 g/dL (12.0-16.0); LYMPHOCYTES # (AUTO) 0.8 K/uL (2.5-16.5); LYMPHOCYTES % (AUTO) 16.8 % (20.5-51.1); MEAN CORPUSCULAR HEMOGLOBIN 25 pg (27-31); MEAN CORPUSCULAR HGB CONC 32 g/dL (33-37); MEAN CORPUSCULAR VOLUME 77.7 fL (80-94); MONOCYTES # (AUTO) 0.4 K/uL (0.8-1.0); MONOCYTES % (AUTO) 7.6 % (1.7-9.3); NEUTROPHILS # (AUTO) 3.5 K/uL (1.8-7.7); PLATELET COUNT (AUTO) 316 K/uL (140-450); RED BLOOD CELL COUNT(AUTO) 3.97 MIL/uL (4.20-5.40); RED CELL DISTRIBUTION WIDTH 16.3 % (11.6-13.7); WHITE BLOOD COUNT (AUTO) 4.9 K/uL (4.8-10.8)
[2019-12-05] MEDS: LEVOTHYROXINE 0.05 MG TAB PO SCH (06:25)
[2019-12-05 06:40] LABS: ANION GAP 10.9 (8-16); CARBON DIOXIDE 25.9 mmol/L (21-32); CREATININE 1.4 mg/dL (0.6-1.3); POTASSIUM 3.8 mmol/L (3.5-5.1)
[2019-12-05 06:43] LABS: MAGNESIUM 2.3 mg/dL (1.8-2.4); PHOSPHORUS 3.4 mg/dL (2.5-4.9)
--- NOTE | 2019-12-05 07:20 | NUR ---
ENDORSED PT TO DAY RN FOR CONTINUITY OF CARE. PT IS IN STABLE CONDITION
--- NOTE | 2019-12-05 07:25 | NUR ---
RECEIVED REPORT FROM RECORD PRESS TENDER. PT IN STABLE CONDITION, SLEEPING, NO DISTRESS NOTED, RESPIRATIONS EVEN AND UNLABORED ON 2L NC. R UA MIDLINE IN PLACE, PATENT AND ASYMPTOMATIC. R CHEST SUBCLAVIAN IN PLACE FOR HD. L UPPER ARM FISTULA IN PLACE, NOT ACTIVELY BEING USED. MECHANICAL SOFT DIET. CONTACT ISOLATION FOR MRSA NARES, SPUTUM AND URINE ESBL. SKIN IS NON INTACT WITH MULTIPLE SKIN TEARS TO INGUINAL AREA AND SKIN FOLDS. SAFETY MEASURES IN PLACE, BED IN LOW POSITION, CALL LIGHT WITHIN REACH. WILL CONTINUE TO MONITOR.
[2019-12-05] MEDS: ALBUTEROL SULFATE/IPRATROPIU 3 ML SOL IH SCH ×2 (07:29→13:23)
[2019-12-05 08:00] VITALS: BP 142/40
[2019-12-05] MEDS: MORPHINE SULFATE 2 MG/ML SYR IVP PRN ×2 (08:36→13:35)
[2019-12-05] MEDS: PANTOPRAZOLE 40 MG INJ VIAL IVP SCH (08:48)
[2019-12-05] MEDS: DULoxetine 30 MG CAPDR PO SCH (08:49)
[2019-12-05] MEDS: METOPROLOL 25 MG TAB PO SCH (08:49)
[2019-12-05] MEDS: hydrALAZINE 10 MG TAB PO SCH ×2 (08:49→13:00)
[2019-12-05] MEDS: amLODIPine 5 MG TAB PO SCH (08:49)
[2019-12-05] MEDS: SERTRALINE 50 MG TAB PO SCH (08:50)
--- NOTE | 2019-12-05 08:51 | NUR ---
MEDICATIONS ADMINISTERED PER ORDER. PT TOLERATED WELL. METOPROLOL AND HYDRALAZINE HELD, AMLODIPINE GIVEN PER DR CLARK, DIASTOLIC BP 40. MORPHINE ADMININISTERED FOR PAIN. WILL REASSESS
[2019-12-05] MEDS ORDERED: DOCU-299 PO (10:10)
--- NOTE | 2019-12-05 11:30 | NUR ---
PT SLEEPING, NO DISTRESS NOTED, RESPIRATIONS EVEN AND UNLABORED. WILL CONTINUE TO MONITOR.
[2019-12-05 12:00] VITALS: BP 138/41
--- NOTE | 2019-12-05 12:26 | NUR ---
PT CLEANED, WOUND CARE DONE. VITAL SIGNS TAKEN. NO DISTRESS NOTED, RESPIRATIONS EVEN AND UNLABORED. PT POSITIONED TO EAT LUNCH. WILL CONTINUE TO MONITOR.
[2019-12-05] MEDS: SKINTEGRITY HYDROGEL TP SCH (13:13)
[2019-12-05 14:34] VITALS: BP 138/41
--- NOTE | 2019-12-05 15:20 | NUR ---
PT DISCHARGED AT THIS TIME. REPORT GIVEN TO AURELIA AT [facility]. PT DISCHARGE AND PRESCRIPTION TEACHING GIVEN, PT VERBALIZED UNDERSTANDING. PT UNABLE TO SIGN DISCHARGE PAPERWORK. R UA MIDLINE REMOVED WITH MINIMAL BLOOD LOSS AND LUMEN INTACT. ID BANDS REMOVED. BELONGINGS VERIFIED AND SENT WITH PT. PT DISCHARGED WITH R SUBCLAVIAN TUNNELED CATH FOR HEMODIALYSIS. PT ESCORTED OFF UNIT VIA GURNEY BY [facility] STAFF IN STABLE CONDITION.
== END 2019-12-05 15:20 | DRG 870 ==
LOC: MED 17:38 → EEVIPCON 19:49 → MTU 19:49 → MIC 11-24 01:10 → MTU 12-01 19:30
PROVIDERS: ADMIT Family Medicine; ATTEND Family Medicine
PROC: 5A09357 Assistance with Respiratory Ventilation, Less than 24 Consecutive Hours, Continuous Positive Airway Pressure (ICD-10-PCS; 2019-11-23)
PROC: 5A12012 Performance of Cardiac Output, Single, Manual (ICD-10-PCS; 2019-11-23)
PROC: 5A1955Z Respiratory Ventilation, Greater than 96 Consecutive Hours (ICD-10-PCS; principal; 2019-11-24)
PROC: 0BH17EZ Insertion of Endotracheal Airway into Trachea, Via Natural or Artificial Opening (ICD-10-PCS; 2019-11-24)
PROC: 5A1D70Z Performance of Urinary Filtration, Intermittent, Less than 6 Hours Per Day (ICD-10-PCS; 2019-11-24)
PROC: 5A1D70Z Performance of Urinary Filtration, Intermittent, Less than 6 Hours Per Day (ICD-10-PCS; 2019-11-25)
PROC: 5A1D70Z Performance of Urinary Filtration, Intermittent, Less than 6 Hours Per Day (ICD-10-PCS; 2019-11-28)
PROC: 5A1D70Z Performance of Urinary Filtration, Intermittent, Less than 6 Hours Per Day (ICD-10-PCS; 2019-11-30)
PROC: 5A1D70Z Performance of Urinary Filtration, Intermittent, Less than 6 Hours Per Day (ICD-10-PCS; 2019-12-02)
PROC: 5A1D70Z Performance of Urinary Filtration, Intermittent, Less than 6 Hours Per Day (ICD-10-PCS; 2019-12-05)
DX: A41.9 Sepsis, unspecified organism (principal); J69.0 Pneumonitis due to inhalation of food and vomit; R65.21 Severe sepsis with septic shock; N17.0 Acute kidney failure with tubular necrosis; I46.9 Cardiac arrest, cause unspecified; J15.212 Pneumonia due to Methicillin resistant Staphylococcus aureus; J96.21 Acute and chronic respiratory failure with hypoxia; J96.22 Acute and chronic respiratory failure with hypercapnia; N18.6 End stage renal disease; R53.2 Functional quadriplegia; I13.2 Hypertensive heart and chronic kidney disease with heart failure and with stage 5 chronic kidney disease, or end stage renal disease; J44.0 Chronic obstructive pulmonary disease with (acute) lower respiratory infection; N39.0 Urinary tract infection, site not specified; I50.42 Chronic combined systolic (congestive) and diastolic (congestive) heart failure; E87.1 Hypo-osmolality and hyponatremia; Z20.828 Contact with and (suspected) exposure to other viral communicable diseases; B96.1 Klebsiella pneumoniae [K. pneumoniae] as the cause of diseases classified elsewhere; D63.8 Anemia in other chronic diseases classified elsewhere; E03.9 Hypothyroidism, unspecified; E78.5 Hyperlipidemia, unspecified; F32.9 Major depressive disorder, single episode, unspecified; M06.9 Rheumatoid arthritis, unspecified; M19.90 Unspecified osteoarthritis, unspecified site; R13.11 Dysphagia, oral phase; E66.01 Morbid (severe) obesity due to excess calories; G89.29 Other chronic pain; G47.33 Obstructive sleep apnea (adult) (pediatric); E66.9 Obesity, unspecified; Z91.19 Patient's noncompliance with other medical treatment and regimen; Z99.2 Dependence on renal dialysis; Z79.899 Other long term (current) drug therapy; Z68.34 Body mass index [BMI] 34.0-34.9, adult
CPT/HCPCS: 36415; 36600; 71045; 80048; 80053; 80202; 81001; 82150; 82550; 82728; 82803; 82948; 83036; 83605; 83615; 83690; 83735; 83880; 84100; 84436; 84439; 84443; 84479; 84484; 85025; 85379; 85384; 85610; 85730; 86140; 86704; 86706; 86708; 86709; 86803; 87040; 87070; 87081; 87086; 87186; 87205; 87340; 87804; 92526; 93005; 94003; 94640; 96365; 96375; 97110; 97112; 97161-GP; 97530; 99291; A6248; C9113; J0330; J1644; J1885; J2001; J2185; J2250; J2270; J2543; J2704; J3010; J3370; J3475; J3480; J3490; J7030; J7042; J7060; J7512; Q0092; U0003-CS

== ENCOUNTER 2019-12-22 16:15 | Emergency (ER) | payer OTHER, MEDICAID ==
[~2019-12-22] VITALS: Ht 142.2 cm; Wt 70.3 kg
[~2019-12-22 16:15] MED LIST changes: +BEN50 PO; +DOCU-299 PO; +GLYC15SO12 OP; +PRED20TA5 PO; +SERT-146 PO
[2019-12-22 16:17] VITALS: BP 127/41
[2019-12-22 17:16] LABS: BASOPHILS % (AUTO) 0.3 % (0.0-2.0); HEMATOCRIT 32.5 % (36-48); HEMOGLOBIN 10.2 g/dL (12.0-16.0); LYMPHOCYTES # (AUTO) 0.4 K/uL (2.5-16.5); LYMPHOCYTES % (AUTO) 4.6 % (20.5-51.1); MEAN CORPUSCULAR HEMOGLOBIN 25 pg (27-31); MEAN CORPUSCULAR HGB CONC 31 g/dL (33-37); MEAN CORPUSCULAR VOLUME 80.5 fL (80-94); MONOCYTES # (AUTO) 0.1 K/uL (0.8-1.0); MONOCYTES % (AUTO) 1.4 % (1.7-9.3); NEUTROPHILS # (AUTO) 9.1 K/uL (1.8-7.7); NEUTROPHILS % (AUTO) 93.7 % (42.2-75.2); PLATELET COUNT (AUTO) 282 K/uL (140-450); RED BLOOD CELL COUNT(AUTO) 4.04 MIL/uL (4.20-5.40); RED CELL DISTRIBUTION WIDTH 19.1 % (11.6-13.7); WHITE BLOOD COUNT (AUTO) 9.7 K/uL (4.8-10.8)
[2019-12-22 17:27] LABS: C-REACTIVE PROTEIN QUANT < 0.2 mg/dL (0.0-0.9)
[2019-12-22 17:41] LABS: ALBUMIN 3.4 g/dL (3.4-5.0); ANION GAP 11.3 (8-16); CARBON DIOXIDE 33.1 mmol/L (21-32); CREATININE 1.8 mg/dL (0.6-1.3); POTASSIUM 5.4 mmol/L (3.5-5.1); TOTAL BILIRUBIN 0.3 mg/dL (0.0-1.0)
[2019-12-22] MEDS: ALBUTEROL HFA MDI 90 MCG/ACTUATION 8 GM INH ONE (18:20)
[2019-12-22] MEDS ORDERED: MAGN400S60 PO (18:21)
[2019-12-22] MEDS ORDERED: POLY15SO48 OP (18:21)
[2019-12-22] MEDS ORDERED: BUDE1AER IH (18:21)
[2019-12-22] MEDS: DEXAMETHASONE 10 MG/ML VIAL IM ONE (18:27)
[2019-12-23 15:00] VITALS: BP 141/60
== END 2019-12-23 15:05 | disposition home or self-care (01) ==
LOC: MED 16:15
DX: J44.9 Chronic obstructive pulmonary disease, unspecified (principal); E87.6 Hypokalemia; E07.9 Disorder of thyroid, unspecified; N28.9 Disorder of kidney and ureter, unspecified; I77.0 Arteriovenous fistula, acquired; I10 Essential (primary) hypertension; J45.909 Unspecified asthma, uncomplicated; K21.9 Gastro-esophageal reflux disease without esophagitis; Z95.828 Presence of other vascular implants and grafts; Z79.899 Other long term (current) drug therapy; Z20.828 Contact with and (suspected) exposure to other viral communicable diseases
CPT/HCPCS: 36415; 71045; 80053; 83605; 83880; 84484; 85025; 86140; 87040; 87426; 93005; 94640; 96372; 99285; J1100; Q0092

== ENCOUNTER 2020-02-01 13:39 | Inpatient (IN) | payer OTHER, MEDICAID ==
[~2020-02-01] VITALS: Ht 154.9 cm; Wt 86.2 kg
[~2020-02-01 13:39] MED LIST changes: +AMLO-271 PO; -AMLO5TAB5 PO; -DOCU-299 PO; -GLYC15SO12 OP; -HYDR-5092 PO; +MAGN400S60 PO; +POLY15SO48 OP
[2020-02-01 14:58] VITALS: BP 151/59
[2020-02-01 16:24] LABS: BASOPHILS % (AUTO) 0.1 % (0.0-2.0); HEMATOCRIT 37.8 % (36-48); HEMOGLOBIN 11.7 g/dL (12.0-16.0); LYMPHOCYTES # (AUTO) 0.4 K/uL (2.5-16.5); MEAN CORPUSCULAR HEMOGLOBIN 26 pg (27-31); MEAN CORPUSCULAR HGB CONC 31 g/dL (33-37); MEAN CORPUSCULAR VOLUME 83.5 fL (80-94); MONOCYTES # (AUTO) 0.2 K/uL (0.8-1.0); MONOCYTES % (AUTO) 1.5 % (1.7-9.3); NEUTROPHILS # (AUTO) 9.3 K/uL (1.8-7.7); NEUTROPHILS % (AUTO) 94.4 % (42.2-75.2); PLATELET COUNT (AUTO) 246 K/uL (140-450); RED BLOOD CELL COUNT(AUTO) 4.53 MIL/uL (4.20-5.40); RED CELL DISTRIBUTION WIDTH 18.3 % (11.6-13.7); WHITE BLOOD COUNT (AUTO) 9.8 K/uL (4.8-10.8)
[2020-02-01 16:38] LABS: CARBON DIOXIDE 28.9 mmol/L (21-32); CHLORIDE 108 mmol/L (98-107); CREATININE 1.4 mg/dL (0.6-1.3); GLUCOSE 156 mg/dL (74-106); POTASSIUM 5.9 mmol/L (3.5-5.1); SODIUM SERUM 142 mmol/L (136-145); UREA NITROGEN, BLOOD 40 mg/dL (7-18)
[2020-02-01] MEDS ORDERED: SODIUM ZIRCONIUM CYCLOSILICATE 10 GM POWD.PACK PO ONE (17:05)
[2020-02-01] MEDS ORDERED: CALCIUM GLUCONATE 10% 1000 MG/10 ML VIAL IVP ONE (17:25)
[2020-02-01] MEDS ORDERED: INSULIN REGULAR, HUMAN 100 UNIT/ML VIAL IVP ONE (17:25)
[2020-02-01] MEDS ORDERED: DEXTROSE 50% 50 ML SYR IVP ONE (17:25)
[2020-02-01] MEDS ORDERED: SODIUM BICARBONATE 8.4% PFS 50 MEQ/50 ML SYR IVP ONE (17:25)
[2020-02-01] MEDS ORDERED: HYDROcodone/APAP 7.5/325 MG 1 TAB PO PRN (23:00)
[2020-02-01] MEDS ORDERED: DOCUSATE SODIUM 100 MG GELCAP PO PRN (23:00)
[2020-02-01] MEDS ORDERED: MAGNESIUM HYDROXIDE 2400 MG/30 ML UDC PO PRN (23:00)
[2020-02-01] MEDS ORDERED: diphenhydrAMINE 50 MG CAP PO PRN (23:00)
[2020-02-01] MEDS ORDERED: POTASSIUM CHLORIDE 10 MEQ TABER PO PRN (23:00)
[2020-02-01] MEDS ORDERED: ACETAMINOPHEN 325 MG TAB PO PRN (23:00)
[2020-02-01] MEDS ORDERED: ONDANSETRON 4 MG/2 ML VIAL IM/IVP PRN (23:00)
[2020-02-01 23:48] LABS: PROTHROMBIN TIME 9.9 secs (10.8-13.4)
[2020-02-01 23:56] LABS: CHOL/HDL RATIO 1.6 (1-4.5); FREE T4 (FREE THYROXINE) 0.92 ng/dL (0.76-1.46); THYROID STIMULATING HORMONE 1.51 uIU/mL (0.34-3.74)
[2020-02-02] MEDS: hydrALAZINE 25 MG TAB PO SCH ×3 (05:00→22:37)
[2020-02-02] MEDS ORDERED: NON-FORMULARY ITEM (Multivitamin (Multivitamins) 1 CAP) PO SCH (09:00)
[2020-02-02] MEDS ORDERED: NON-FORMULARY ITEM (Budesonide/Formoterol Fumarate* (Symbicort 160-4.5 Mcg Inhaler*) 2 PUF IH SCH (09:00)
[2020-02-02 09:34] LABS: BASOPHILS % (AUTO) 0.7 % (0.0-2.0); EOSINOPHILS # (AUTO) 0.1 K/uL (0-0.4); EOSINOPHILS % (AUTO) 1.4 % (0.0-4.0); HEMATOCRIT 38.9 % (36-48); LYMPHOCYTES # (AUTO) 1.6 K/uL (2.5-16.5); MEAN CORPUSCULAR HEMOGLOBIN 26 pg (27-31); MEAN CORPUSCULAR HGB CONC 31 g/dL (33-37); MEAN CORPUSCULAR VOLUME 83.9 fL (80-94); MONOCYTES # (AUTO) 0.5 K/uL (0.8-1.0); MONOCYTES % (AUTO) 6.7 % (1.7-9.3); NEUTROPHILS # (AUTO) 5.3 K/uL (1.8-7.7); NEUTROPHILS % (AUTO) 70.2 % (42.2-75.2); PLATELET COUNT (AUTO) 217 K/uL (140-450); RED BLOOD CELL COUNT(AUTO) 4.64 MIL/uL (4.20-5.40); RED CELL DISTRIBUTION WIDTH 18.5 % (11.6-13.7); WHITE BLOOD COUNT (AUTO) 7.5 K/uL (4.8-10.8)
[2020-02-02 10:08] LABS: ANION GAP 10.5 (8-16); CHLORIDE 106 mmol/L (98-107); CREATININE 0.9 mg/dL (0.6-1.3); GLUCOSE 110 mg/dL (74-106); POTASSIUM 3.5 mmol/L (3.5-5.1); SODIUM SERUM 142 mmol/L (136-145); UREA NITROGEN, BLOOD 29 mg/dL (7-18)
[2020-02-02 10:11] LABS: MAGNESIUM 1.8 mg/dL (1.8-2.4); PHOSPHORUS 3.4 mg/dL (2.5-4.9)
[2020-02-02] MEDS: METOPROLOL 25 MG TAB PO SCH ×2 (11:11→22:37)
[2020-02-02] MEDS: GABAPENTIN 300 MG CAP PO SCH ×2 (11:11→22:37)
[2020-02-02] MEDS: LEVOTHYROXINE 0.025 MG TAB PO SCH (11:11)
[2020-02-02] MEDS: DULoxetine 30 MG CAPDR PO SCH (11:11)
[2020-02-02] MEDS: SERTRALINE 50 MG TAB PO SCH (11:11)
[2020-02-02] MEDS: amLODIPine 5 MG TAB PO SCH (11:12)
[2020-02-02] MEDS: PANTOPRAZOLE 40 MG TABEC PO SCH (11:12)
[2020-02-02] MEDS: POLYVINYL ALCOHOL 1.4% OP 15 ML SOL OP SCH ×2 (13:38→18:06)
[2020-02-02] MEDS ORDERED: ATORVASTATIN 20 MG TAB PO SCH (21:00)
[2020-02-03] VITALS: BP 116/56
[2020-02-03] MEDS: POLYVINYL ALCOHOL 1.4% OP 15 ML SOL OP SCH ×3 (00:07→12:10)
[2020-02-03 04:00] VITALS: BP 134/68
[2020-02-03] MEDS: hydrALAZINE 25 MG TAB PO SCH ×2 (05:24→12:10)
[2020-02-03 06:55] LABS: BASOPHILS % (AUTO) 0.5 % (0.0-2.0); EOSINOPHILS # (AUTO) 0.1 K/uL (0-0.4); EOSINOPHILS % (AUTO) 1.4 % (0.0-4.0); HEMATOCRIT 39.5 % (36-48); HEMOGLOBIN 12.3 g/dL (12.0-16.0); LYMPHOCYTES # (AUTO) 1.5 K/uL (2.5-16.5); MEAN CORPUSCULAR HEMOGLOBIN 26 pg (27-31); MEAN CORPUSCULAR HGB CONC 31 g/dL (33-37); MEAN CORPUSCULAR VOLUME 83.7 fL (80-94); MONOCYTES # (AUTO) 0.5 K/uL (0.8-1.0); NEUTROPHILS # (AUTO) 5.2 K/uL (1.8-7.7); NEUTROPHILS % (AUTO) 71.1 % (42.2-75.2); PLATELET COUNT (AUTO) 227 K/uL (140-450); RED BLOOD CELL COUNT(AUTO) 4.71 MIL/uL (4.20-5.40); RED CELL DISTRIBUTION WIDTH 17.7 % (11.6-13.7); WHITE BLOOD COUNT (AUTO) 7.4 K/uL (4.8-10.8)
[2020-02-03 07:09] LABS: ANION GAP 9.6 (8-16); CARBON DIOXIDE 27.9 mmol/L (21-32); CHLORIDE 106 mmol/L (98-107); CREATININE 1.1 mg/dL (0.6-1.3); GLUCOSE 85 mg/dL (74-106); POTASSIUM 4.5 mmol/L (3.5-5.1); SODIUM SERUM 139 mmol/L (136-145); UREA NITROGEN, BLOOD 30 mg/dL (7-18)
[2020-02-03 07:22] LABS: MAGNESIUM 1.9 mg/dL (1.8-2.4); PHOSPHORUS 4.1 mg/dL (2.5-4.9)
[2020-02-03 08:00] VITALS: BP 144/50
[2020-02-03 08:07] LABS: T4 (THYROXINE) 4.9 ug/dL (4.5-12.0)
[2020-02-03] MEDS: PANTOPRAZOLE 40 MG TABEC PO SCH (08:31)
[2020-02-03] MEDS: DULoxetine 30 MG CAPDR PO SCH (08:31)
[2020-02-03] MEDS: GABAPENTIN 300 MG CAP PO SCH (08:31)
[2020-02-03] MEDS: LEVOTHYROXINE 0.025 MG TAB PO SCH (08:31)
[2020-02-03] MEDS: SERTRALINE 50 MG TAB PO SCH (08:32)
[2020-02-03] MEDS: amLODIPine 5 MG TAB PO SCH (08:32)
[2020-02-03] MEDS: METOPROLOL 25 MG TAB PO SCH (08:33)
[2020-02-03] MEDS ORDERED: MULTIVITAMIN 1 TAB PO SCH (09:00)
[2020-02-03 12:00] VITALS: BP 138/54
[2020-02-03] MEDS ORDERED: CHLORHEXADINE GLUC 2% CLOTH TP SCH (14:00)
[2020-02-03] MEDS ORDERED: MUPIROCIN CA NASAL 2% 1GM TUBE NS SCH (14:00)
[2020-02-03 16:00] VITALS: BP 135/65
[2020-02-03 16:41] VITALS: BP 138/54
== END 2020-02-03 18:02 | DRG 291 ==
LOC: MED 13:39 → MTU 17:36 → MMU 02-02 04:40
PROVIDERS: ADMIT Emergency Medicine; ATTEND Emergency Medicine
DX: I13.2 Hypertensive heart and chronic kidney disease with heart failure and with stage 5 chronic kidney disease, or end stage renal disease (principal); G93.41 Metabolic encephalopathy; N18.6 End stage renal disease; R53.2 Functional quadriplegia; J96.10 Chronic respiratory failure, unspecified whether with hypoxia or hypercapnia; I50.32 Chronic diastolic (congestive) heart failure; J44.9 Chronic obstructive pulmonary disease, unspecified; E03.9 Hypothyroidism, unspecified; E78.5 Hyperlipidemia, unspecified; E87.5 Hyperkalemia; G89.29 Other chronic pain; M06.9 Rheumatoid arthritis, unspecified; G47.33 Obstructive sleep apnea (adult) (pediatric); D63.8 Anemia in other chronic diseases classified elsewhere; Z99.2 Dependence on renal dialysis; Z99.81 Dependence on supplemental oxygen; Z20.828 Contact with and (suspected) exposure to other viral communicable diseases
CPT/HCPCS: 36415; 70450; 71045; 80048; 83036; 83735; 83880; 84100; 84436; 84439; 84443; 84479; 85025; 85610; 85730; 87081; 93005; 99291; J1644; J1815